=== PATIENT | male | born 1965 ===

== ENCOUNTER 2017-03-27 09:14 | Inpatient (IN) | payer OTHER ==
[2017-03-27] MEDS ORDERED: Sodium Chloride 0.9% 1,000 ML IV ONE (09:47)
--- NOTE | 2017-03-27 10:00 | C.PDOC ---
History Of Present Illness 51 y/o male presents to the ED for evaluation of diffuse abdominal pain with associated nausea and intermittent vomiting x3 days. Pt also reports some discomfort on urination with pinkish color to urine since this am. Pt denies fever, chills, recent illness or abx use, neck pain, drooling, chest pain, SOB, dyspnea, palpitation, hematemesis, diarrhea or melena, denies any other complaints. No previous history of GI or kidney disease.Ambulate to Ed for evaluation, appears in mild pain. Time Seen by Provider: 03/27/17 09:30 Chief Complaint (Nursing): Abdominal Pain History Per: Patient History/Exam Limitations: no limitations Onset/Duration Of Symptoms: Days Current Symptoms Are (Timing): Still Present Severity: Moderate Location Of Pain/Discomfort: Diffuse Radiation Of Pain To:: None Quality Of Discomfort: "Pain" Associated Symptoms: Nausea, Vomiting, Urinary Symptoms. denies: Fever, Chills , Diarrhea, Back Pain, Chest Pain Exacerbating Factors: None Alleviating Factors: None Recent travel outside of the [place]: No Past Medical History Reviewed: Historical Data, Nursing Documentation, Vital Signs Vital Signs: Last Vital Signs Temp 98.6 F 03/27/17 14:19 Pulse 98 H 03/27/17 14:19 Resp 20 03/27/17 14:19 BP 130/83 03/27/17 14:19 Pulse Ox 96 03/27/17 14:19 - Medical History PMH: HTN, Hypercholesterolemia Family History: States: Unknown Family Hx - Social History Hx Alcohol Use: Yes Hx Substance Use: Yes - Immunization History Hx Tetanus Toxoid Vaccination: No Hx Influenza Vaccination: No Hx Pneumococcal Vaccination: No Review Of Systems Except As Marked, All Systems Reviewed And Found Negative. Constitutional: Negative for: Fever, Chills Cardiovascular: Negative for: Chest Pain Respiratory: Negative for: Shortness of Breath Gastrointestinal: Positive for: Nausea, Vomiting, Abdominal Pain. Negative for : Diarrhea Genitourinary: Positive for: Dysuria, Other (pinkish colored urine) Musculoskeletal: Negative for: Back Pain Physical Exam - Physical Exam Appears: Well, Non-toxic, No Acute Distress Skin: Warm, Dry, No Rash Nose: No Flaring, No Discharge Oral Mucosa: Moist, No Drooling Throat: No Erythema, No Exudate, No Drooling Neck: Supple, Other ((-) carotid btuits) Chest: Symmetrical Cardiovascular: Rhythm Regular, No Friction Rub, No Murmur, No JVD Respiratory: No Decreased Breath Sounds, No Accessory Muscle Use, No Rales, No Rhonchi, No Wheezing Gastrointestinal/Abdominal: Soft, Tenderness (mild diffuse lower ), No Organomegaly, No Distention, No Guarding, No Rebound Back: No CVA Tenderness Extremity: No Pedal Edema, No Deformity Extremity: Bilateral: Atraumatic Neurological/Psych: Oriented x3, Normal Speech, Normal Cognition ED Course And Treatment - Laboratory Results Result Diagrams: 03/27/17 10:16 03/27/17 10:16 Lab Interpretation: Abnormal O2 Sat by Pulse Oximetry: 98 (room air) Pulse Ox Interpretation: Normal - CT Scan/US CT abd/pelvis Other Rad Studies (CT/US): Radiology Report Reviewed CT/US Interpretation: Accession No. : [id number]. Patient Name / ID : INDIO BALLARD / [id number]. Exam Date : 03/27/2017 11:30:23 ( Approved ). Study Comment : Sex / Age : M / 51Y. Creator : Stacy Howell MD. Dictator : Gyroscopic Instrument Mechanic : Car Distributor : Stacy Howell MD. Approver2 : Report Date : 03/27/2017 12:54:45. My Comment : . PROCEDURE: CT Abdomen and Pelvis with contrast. HISTORY: LLQ pain. COMPARISON: None available. TECHNIQUE: Contrast dose: 100 mL Visipaque. Radiation dose: Total exam DLP = 650.40 mGy-cm. This CT exam was performed using one or more of the following dose reduction techniques: Automated exposure control, adjustment of the mA and/ or kV according to patient size, and/or use of iterative reconstruction technique. FINDINGS: LOWER THORAX: No visible consolidation, pleural effusion , or pneumothorax. Small to moderate hiatal hernia. LIVER: Hypoattenuation of the liver compatible with hepatic steatosis. Hepatomegaly. GALLBLADDER AND BILE DUCTS: Unremarkable. PANCREAS: Unremarkable. SPLEEN: Unremarkable. ADRENALS: 2.5 x 2.2 cm heterogeneous left adrenal gland mass. KIDNEYS AND URETERS: The kidneys enhance symmetrically. No hydronephrosis or obstructing calculus identified. VASCULATURE: No aortic aneurysm. BOWEL: Stomach is nondistended. Lack of oral contrast limits evaluation for bowel pathology. Bowel loops appear within normal limits of caliber without evidence of obstruction. Marked wall thickening and associated inflammatory changes involving the rectosigmoid colon compatible with acute diverticulitis. Evidence of associated microperforation. Adjacent small bowel loops appear thick walled, presumably resulting from the adjacent inflammatory changes. APPENDIX: The appendix appears within normal limits of caliber. No secondary signs of acute appendicitis. PERITONEUM: No significant free fluid. No definite free air. LYMPH NODES: No bulky adenopathy identified. BLADDER: Unremarkable. REPRODUCTIVE: Unremarkable. BONES: Mild degenerative changes. OTHER FINDINGS : None. IMPRESSION: Marked wall thickening and associated inflammatory changes involving the rectosigmoid colon compatible with acute diverticulitis. Small foci of adjacent air consistent with microperforation. Adjacent small bowel loops appear thick walled, presumably resulting from the adjacent inflammatory changes. 2.5 x 2.2 cm indeterminate heterogeneous left adrenal gland mass. Adrenal protocol MRI may be considered for further characterization if indicated. Hepatomegaly. Hepatic steatosis. Small to moderate hiatal hernia. Progress Note: Plan: CT abdomen/pelvis, labs, UA, IV fluids, pepcid, toradol, zofran. On re-evaluation, pt remained unchanged. Abd: benign, (-) guarding, (- ) rebound. Diagnostics review , leukocytosis w;left shift, CMP- no acute abnormalities. Imaging review and c/w acute diverticulitis with microperforation. results review and discussed with pt, admission offered and pt agrees with plan. Case discussed with Hospitalist and admission arranged. Surgery notified for consult. Abx initiated. Disposition - Disposition Disposition: HOSPITALIZED Disposition Time: 13:18 Condition: STABLE - Clinical Impression Clinical Impression: Diverticulitis, Acute diverticulitis, Perforated bowel - PA / IP TECHNOLOGY TRANSACTIONS ATTORNEY / Resident Statement MD/DO has reviewed & agrees with the documentation as recorded. - Scribe Statement The provider has reviewed the documentation as recorded by the Ciara Clark All medical record entries made by the Ciara were at my direction and personally dictated by me. I have reviewed the chart and agree that the record accurately reflects my personal performance of the history, physical exam, medical decision making, and the department course for this patient. I have also personally directed, reviewed, and agree with the discharge instructions and disposition.
[2017-03-27] MEDS ORDERED: Sodium Chloride 0.9% 1,000 ML ONE ×2 (10:05→16:25)
[2017-03-27 10:35] LABS: BASO # 0.1 K/uL (0.0-0.2); BASO % 0.4 % (0.0-2.0); EOS % 0.2 % (0.0-4.0); HEMOGLOBIN 13.1 g/dL (12.0-18.0); LYMPH # 1.2 K/uL (1.0-4.3); LYMPH % 6.3 % (20.0-40.0); MEAN CORPUSCULAR HEMOGLOBIN 30.3 pg (27.0-31.0); MEAN CORPUSCULAR HGB CONC 33.3 g/dL (33.0-37.0); MEAN PLATELET VOLUME 7.5 fL (7.2-11.7); MONO # 1.9 K/uL (0.0-0.8); MONO % 9.7 % (0.0-10.0); NEUT # 16.6 K/uL (1.8-7.0); NEUT % 83.4 % (50.0-75.0); PLATELET COUNT 227 K/uL (130-400); RBC 4.32 Mil/uL (4.40-5.90); RED CELL DISTRIBUTION WIDTH 13.1 % (11.5-14.5); WHITE BLOOD COUNT 19.9 K/uL (4.8-10.8)
[2017-03-27 10:50] LABS: GRANULAR CAST 5 /lpf (0-1); URINE BILIRUBIN NEGATIVE (NEGATIVE); URINE BLOOD 1+ (NEGATIVE); URINE CLARITY Hazy (Clear); URINE COLOR Amber (YELLOW); URINE GLUCOSE (UA) NORMAL (Normal); URINE LEUKOCYTE ESTERASE NEG Leu/uL (Negative); URINE NITRATE NEGATIVE (NEGATIVE); URINE PROTEIN 1+ mg/dL (NEGATIVE); URINE UROBILINOGEN NORMAL mg/dL (0.2-1.0)
[2017-03-27 10:55] LABS: ALB/GLOB RATIO 1.2 (1.0-2.1); AST/SGOT 20 U/L (17-59); BLOOD UREA NITROGEN 9 mg/dL (9-20); GFR AFRICAN-AMERICAN > 60; GFR NON-AFRICAN AMERICAN > 60
[2017-03-27 10:56] LABS: ALT/SGPT 29 U/L (21-72); CALCIUM 8.9 mg/dl (8.6-10.4); LIPASE 28 U/L (23-300)
[2017-03-27 10:58] LABS: LYMPHOCYTE 3 % (20-40); MONOCYTE 3 % (0-10); NEUTROPHIL 94 % (50-75); PLATELET ESTIMATE NORMAL (NORMAL); TOTAL CELLS COUNTED 100
[2017-03-27] MEDS ORDERED: Iodixanol 320 MG/ML 100 ML BOTTLE IV ONE (11:13)
--- NOTE | 2017-03-27 12:56 | CT ---
PROCEDURE: CT Abdomen and Pelvis with contrast HISTORY: LLQ pain COMPARISON: None available TECHNIQUE: Contrast dose: 100 mL Visipaque Radiation dose: Total exam DLP = 650.40 mGy-cm. This CT exam was performed using one or more of the following dose reduction techniques: Automated exposure control, adjustment of the mA and/or kV according to patient size, and/or use of iterative reconstruction technique. FINDINGS: LOWER THORAX: No visible consolidation, pleural effusion, or pneumothorax. Small to moderate hiatal hernia. LIVER: Hypoattenuation of the liver compatible with hepatic steatosis. Hepatomegaly. GALLBLADDER AND BILE DUCTS: Unremarkable. PANCREAS: Unremarkable. SPLEEN: Unremarkable. ADRENALS: 2.5 x 2.2 cm heterogeneous left adrenal gland mass. KIDNEYS AND URETERS: The kidneys enhance symmetrically. No hydronephrosis or obstructing calculus identified. VASCULATURE: No aortic aneurysm. BOWEL: Stomach is nondistended. Lack of oral contrast limits evaluation for bowel pathology. Bowel loops appear within normal limits of caliber without evidence of obstruction. Marked wall thickening and associated inflammatory changes involving the rectosigmoid colon compatible with acute diverticulitis. Evidence of associated microperforation. Adjacent small bowel loops appear thick walled, presumably resulting from the adjacent inflammatory changes. APPENDIX: The appendix appears within normal limits of caliber. No secondary signs of acute appendicitis. PERITONEUM: No significant free fluid. No definite free air. LYMPH NODES: No bulky adenopathy identified. BLADDER: Unremarkable. REPRODUCTIVE: Unremarkable. BONES: Mild degenerative changes. OTHER FINDINGS: None. IMPRESSION: Marked wall thickening and associated inflammatory changes involving the rectosigmoid colon compatible with acute diverticulitis. Small foci of adjacent air consistent with microperforation. Adjacent small bowel loops appear thick walled, presumably resulting from the adjacent inflammatory changes. 2.5 x 2.2 cm indeterminate heterogeneous left adrenal gland mass. Adrenal protocol MRI may be considered for further characterization if indicated. Hepatomegaly. Hepatic steatosis. Small to moderate hiatal hernia.
[2017-03-27] MEDS ORDERED: Ciprofloxacin 400mg/200ml D5W 400 MG/200 ML BAG IVPB STA (13:18)
[2017-03-27] MEDS ORDERED: metroNIDAZOLE IV 500 mg/100 ml 500 MG/100 ML BAG IVPB STA (13:18)
--- NOTE | 2017-03-27 13:46 | RAD ---
HISTORY: Cough COMPARISON: No prior. TECHNIQUE: Chest PA and lateral FINDINGS: LUNGS: No active pulmonary disease. PLEURA: No significant pleural effusion identified. No pneumothorax apparent. CARDIOVASCULAR: Normal. OSSEOUS STRUCTURES: No significant abnormalities. VISUALIZED UPPER ABDOMEN: Normal. OTHER FINDINGS: None. IMPRESSION: No active disease.
[2017-03-27] MEDS ORDERED: metroNIDAZOLE IV 500 mg/100 ml 500 MG/100 ML BAG ONE (13:51)
[2017-03-27 14:17] LABS: PROTHROMBIN TIME 11.8 SECONDS (9.7-12.2)
--- NOTE | 2017-03-27 14:28 | CP.PCM.CON ---
History of Present Illness - History of Present Illness History of Present Illness: CC :Diffuse abdominal pain HPI: Patient is a 51 year old male with past medical history of HTN, who presents to the ED with diffuse abdominal pain that started two days ago while playing basketball with his kid. Patient describes his abdominal pain as cramping that is localized more to the lower abdominal region without radiation that has progressively worsen since its onset. Patient rates his pain 8/10 that is worsen with defecation and urination. Patient reports that he has been taking Tylenol since the onset of the pain, which provided no relief. Patient admits to nausea, two episodes of vomit yesterday that was yellow/white foamy content, chills, night sweats, dizziness, hot flushes but denies fever, diarrhea , chest pain, palpitations and SOB. PMD: None PMHx: Hypertension ( Patient does not take hypertensive medication) PSHx: Bilateral rotator cuff repair, Repair of L elbow rupture and cardiac catherization w/o stent placement FHx: Mother and Father: Hypertension Medications: OTC Tylenol Allergies: [place] ( Angioedema of the mouth) Social Hx: Lives with family. Admits to 1 pack cigarettes every 2 days, 4 cans of beer/day 3-4 times per week and smokes Marijuana Review of Systems - Constitutional Constitutional: Chills, Headache, Night Sweats, Weakness. absent: Fever - EENT Eyes: absent: Blurred Vision, Change in Vision Ears: Dizziness - Cardiovascular Cardiovascular: Lightheadedness. absent: Chest Pain, Chest Pain at Rest, Diaphoresis, Dyspnea, Palpitations, Pedal Edema - Respiratory Respiratory: absent: Dyspnea, Dyspnea on Exertion - Gastrointestinal Gastrointestinal: Abdominal Pain, Cramping, Nausea, Vomiting. absent: Constipation, Diarrhea - Genitourinary Genitourinary: absent: Difficulty Urinating, Pyuria, Urinary Frequency, Urinary Hesitance - Neurological Neurological: Dizziness, Headaches, Weakness - Endocrine Endocrine: Fatigue. absent: Excessive Sweating, Palpitations Past Patient History - Infectious Disease Hx of Infectious Diseases: None - Past Social History Smoking Status: Heavy Smoker > 10 Cigarettes Daily - CARDIAC Hx Hypercholesterolemia: Yes Hx Hypertension: Yes - MUSCULOSKELETAL/RHEUMATOLOGICAL Other/Comment: chronic mat shoulder crystal. Rt knee pain - PSYCHIATRIC Hx Substance Use: Yes - SURGICAL HISTORY Hx Surgeries: Yes Hx Orthopedic Surgery: Yes (mat shoulder) - ANESTHESIA Hx Anesthesia: Yes Hx Anesthesia Reactions: No Hx Malignant Hyperthermia: No Meds Allergies/Adverse Reactions: Allergies Allergy/AdvReac Type Severity Reaction Status Date / Time hazelnut Allergy SWELLING Verified 03/27/17 09:19 - Medications Medications: Current Medications Ciprofloxacin (Cipro 400mg/200ml Dsw) 400 mg in 200 mls @ 133 mls/hr IVPB STAT STA Stop: 03/27/17 14:48 Physical Exam - Constitutional Appears: No Acute Distress - Head Exam Head Exam: ATRAUMATIC, NORMAL INSPECTION - Eye Exam Eye Exam: EOMI, Normal appearance - ENT Exam ENT Exam: Mucous Membranes Moist, Normal Exam - Respiratory Exam Respiratory Exam: Wheezes, NORMAL BREATHING PATTERN - Cardiovascular Exam Cardiovascular Exam: REGULAR RHYTHM, +S1, +S2 - GI/Abdominal Exam GI & Abdominal Exam: Normal Bowel Sounds, Rebound, Tenderness - Extremities Exam Extremities exam: Positive for: normal capillary refill, normal inspection. Negative for: calf tenderness, pedal edema, tenderness - Neurological Exam Neurological exam: Alert, Oriented x3 - Psychiatric Exam Psychiatric exam: Normal Affect, Normal Mood - Skin Skin Exam: Dry, Normal Color, Warm Results - Vital Signs Recent Vital Signs: Last Vital Signs Temp 98.6 F 03/27/17 14:19 Pulse 98 H 03/27/17 14:19 Resp 20 03/27/17 14:19 BP 130/83 03/27/17 14:19 Pulse Ox 96 03/27/17 14:19 - Labs Result Diagrams: 03/27/17 10:16 03/27/17 10:16 Assessment & Plan (1) Acute diverticulitis Assessment and Plan: No surgical intervention at this time Bowel rest IV Fluids Continue antibiotics regimen Pain control as needed Will re-evlauate if necessary Clear Liquid diet Imaging: F/U abdominal series Status: Acute
--- NOTE | 2017-03-27 14:33 | CP.PCM.HP ---
Addendum entered and electronically signed by Delta Tompkins DO 03/27/17 15:23: 7. Sepsis Addendum: WBC 19.5, HR 98-122. afebrile. Ordered Lactate. See plan to Diverticulitis with Microperforation Original Note: <Delta Tompkins - Last Filed: 03/27/17 14:49> History of Present Illness - History of Present Illness History of Present Illness: cc: stomach pain HPI: Patient is a 51 year old male with no PMHx presenting to the ED complaining of abdominal pain that started 3 days ago. He states he was playing basketball with his kid when he suddenly felt a 3-4/10 pain, describing it as a band tightening around his upper abdomen. As the day progressed, the pain worsened and started to radiate down to his lower abdomen. He says he has never had a pain like this before, and that the pain was continuous. He said he tried taking some pepto bismol with no relief. He reports that when he urinates, the pain starts to radiate upward, though he denies any dysuria. He denies any fevers or chills. He states he has had decreased appetite, and two episodes of vomiting yellow-white foamy material. Denies any changes in bowel habits. PMD: None PMHx: None PSHx: Elbow and rotator cuff surgery, Allergies: Hazelnut Social hx: Smokes 1 pack every 2 days/ 22 years. Drinks about 4x 24 oz beers every 3 days, denies any withdrawal symptoms upon discontinuation. Smokes marijuana about twice per month. Fam hx: noncontributory. Present on Admission - Present on Admission Any Indicators Present on Admission: No Review of Systems - Constitutional Constitutional: absent: Chills, Fatigue, Frequent Falls, Lethargy - EENT Eyes: absent: Blurred Vision, Change in Vision Nose/Mouth/Throat: absent: Nasal Discharge, Tongue Swelling, Facial Pain, Neck Mass - Cardiovascular Cardiovascular: absent: Chest Pain, Irregular Heart Rhythm, Leg Edema, Palpitations, Pedal Edema - Respiratory Respiratory: absent: As Per HPI, Cough, Dyspnea, Wheezing, Excessive Mucous Production - Gastrointestinal Gastrointestinal: Abdominal Pain, Nausea, Vomiting. absent: Constipation, Diarrhea, Early Satiety, Heartburn, Hematemesis - Genitourinary Genitourinary: absent: Difficulty Urinating, Dysuria - Musculoskeletal Musculoskeletal: absent: Back Pain, Myalgias, Numbness - Integumentary Integumentary: absent: Change in Hair, Skin Pain, Wounds - Neurological Neurological: absent: Abnormal Hearing, Abnormal Movements, Tingling, Tremor, Weakness - Psychiatric Psychiatric: absent: Anhedonia, Anxiety, Panic Attacks, Suicidal Ideation - Endocrine Endocrine: absent: Fatigue, Palpitations Past Patient History - Infectious Disease Hx of Infectious Diseases: None - Past Social History Smoking Status: Light Smoker < 10 Cigarettes Daily Chewing Tobacco Use: No Cigar Use: No Alcohol: Other (4x 24 oz beers 3x/ week) Drugs: Cannabis Home Situation {Lives}: Alone - CARDIAC Hx Hypercholesterolemia: Yes Hx Hypertension: Yes - MUSCULOSKELETAL/RHEUMATOLOGICAL Other/Comment: chronic mat shoulder crystal. Rt knee pain - PSYCHIATRIC Hx Substance Use: Yes - SURGICAL HISTORY Hx Surgeries: Yes Hx Orthopedic Surgery: Yes (mat shoulder) - ANESTHESIA Hx Anesthesia: Yes Hx Anesthesia Reactions: No Hx Malignant Hyperthermia: No Meds Allergies/Adverse Reactions: Allergies Allergy/AdvReac Type Severity Reaction Status Date / Time hazelnut Allergy SWELLING Verified 03/27/17 09:19 Physical Exam - Constitutional Appears: Non-toxic, No Acute Distress - Head Exam Head Exam: ATRAUMATIC, NORMAL INSPECTION, NORMOCEPHALIC - Eye Exam Eye Exam: EOMI, Normal appearance Pupil Exam: NORMAL ACCOMODATION, PERRL - ENT Exam ENT Exam: Mucous Membranes Moist - Respiratory Exam Respiratory Exam: Wheezes, NORMAL BREATHING PATTERN. absent: Prolonged Expiratory Phase, Rales, Rhonchi - Cardiovascular Exam Cardiovascular Exam: REGULAR RHYTHM, +S1, +S2 - GI/Abdominal Exam GI & Abdominal Exam: Guarding, Normal Bowel Sounds, Soft, Tenderness (LUQ, LLQ, RLQ) - Extremities Exam Extremities exam: Positive for: normal capillary refill, pedal pulses present - Neurological Exam Neurological exam: Alert, Oriented x3 - Psychiatric Exam Psychiatric exam: Normal Affect, Normal Mood - Skin Skin Exam: Dry, Intact, Normal Color, Warm Results - Vital Signs Recent Vital Signs: Last Vital Signs Temp 98.6 F 03/27/17 14:19 Pulse 98 H 03/27/17 14:19 Resp 20 03/27/17 14:19 BP 130/83 03/27/17 14:19 Pulse Ox 96 03/27/17 14:19 - Labs Result Diagrams: 03/27/17 10:16 03/27/17 10:16 Labs: Laboratory Results - last 24 hr 03/27/17 13:55 PT 11.8 INR 1.0 APTT 30 Assessment & Plan - Assessment and Plan (Free Text) Assessment: 1. Diverticulitis with microperforation CT Abdomen Pelvis IV Contrast- 03/27/17- Marked wall thickening and associated inflammatory changes involving the rectosigmoid colon comptaible with acute diverticulitis. Small foci of adjacent air consistent with microperforation. 2.5x 2.2 cm heterogeneous left adrenal gland mass. Adrenal protocol MRI may be considered for further characterization if indicated. Hepatomegaly. Hepatic Steatosis. Small to moderate hiatal hernia. GI Consult- Dr. Lopes General Surgery Consult- Dr. Michael NPO IVF NS @ 125cc/hr Zosyn 3.375gm IVPB Q6h Flagyl 500mg IVPB Q8h Morphine 1mg IVP Q4h PRN for pain Zofran 4mg IVP Q6h PRN 2. Adrenal Mass 2.5x 2.2 cm heterogeneous left adrenal gland mass. Adrenal protocol MRI may be considered for further characterization if indicated. No indication for further workup in the hospital. Patient instructed to followup outpatient for additional workup. 3. Obesity F/u HgbA1C and Lipid Panel 4. Alcohol Abuse Ativan 1mg IVP Q3h PRN for withdrawal symptoms 5. Inspiratory Wheezing Duoneb Q6h PRN 6.Prophylactic Measures Heparin 5000U SC Q8h Protonix 40mg IVP Daily <Ruy Wiggins - Last Filed: 03/27/17 16:29> Results - Vital Signs Recent Vital Signs: Last Vital Signs Temp 98.6 F 03/27/17 14:19 Pulse 98 H 03/27/17 14:19 Resp 20 03/27/17 14:19 BP 130/83 03/27/17 14:19 Pulse Ox 98 03/27/17 15:56 - Labs Result Diagrams: 03/27/17 10:16 03/27/17 10:16 Labs: Laboratory Results - last 24 hr 03/27/17 13:55 PT 11.8 INR 1.0 APTT 30 Attending/Attestation - Attestation I have personally seen and examined this patient.: Yes I have fully participated in the care of the patient.: Yes I have reviewed all pertinent clinical information: Yes Notes (Text): 03/27/17 16:29 Patient was seen and examined at bedside with the resident. GI and surgical evaluation requested. We will follow up recommendations I discussed the plan of care with the resident and agree with the history and physical and assessment/plan documented by the resident.
[2017-03-27] MEDS ORDERED: Albuterol-Ipratrop 3 mg / 0.5 (3 ml) UD INH PRN (14:55)
[2017-03-27] MEDS ORDERED: Ciprofloxacin 400mg/200ml D5W 400 MG/200 ML BAG IVPB ONE (16:25)
[2017-03-27] MEDS: Sodium Chloride 0.9% 1,000 ML IV SCH ×3 (16:31→23:07)
[2017-03-27 16:39] LABS: VENOUS BLOOD GAS BASE EXCESS -3.3 mmol/L (0.0-2.0); VENOUS BLOOD GAS PCO2 40 mmHg (40-60); VENOUS BLOOD GAS PO2 42 mm/Hg (30-55); VENOUS BLOOD PH 7.35 (7.32-7.43)
[2017-03-27] MEDS ORDERED: Morphine 4 MG/ML VIAL ONE (16:56)
[2017-03-27] MEDS: Morphine 4 MG/ML VIAL IVP PRN (17:00)
[2017-03-27] MEDS ORDERED: Morphine 4 MG/ML VIAL IV ONE (20:25)
[2017-03-27] MEDS: Piperacill/Tazo 3.375gm in Dex 3.375 GM/50 ML BAG IVPB SCH (21:51)
[2017-03-27] MEDS: metroNIDAZOLE IV 500 mg/100 ml 500 MG/100 ML BAG IVPB SCH (21:52)
[2017-03-28] MEDS: Morphine 4 MG/ML VIAL IVP PRN ×3 (00:33→20:06)
[2017-03-28] MEDS: Piperacill/Tazo 3.375gm in Dex 3.375 GM/50 ML BAG IVPB SCH ×4 (03:57→22:25)
[2017-03-28] MEDS: metroNIDAZOLE IV 500 mg/100 ml 500 MG/100 ML BAG IVPB SCH ×3 (06:01→22:21)
[2017-03-28] MEDS: Sodium Chloride 0.9% 1,000 ML IV SCH ×3 (07:00→22:38)
[2017-03-28 07:24] LABS: BASO % 0.3 % (0.0-2.0); EOS # 0.2 K/uL (0.0-0.7); EOS % 1.1 % (0.0-4.0); HEMOGLOBIN 11.4 g/dL (12.0-18.0); LYMPH # 1.1 K/uL (1.0-4.3); LYMPH % 7.6 % (20.0-40.0); MEAN CELL VOLUME 91.1 fL (80.0-94.0); MEAN CORPUSCULAR HEMOGLOBIN 30.8 pg (27.0-31.0); MEAN CORPUSCULAR HGB CONC 33.9 g/dL (33.0-37.0); MEAN PLATELET VOLUME 7.6 fL (7.2-11.7); MONO # 1.5 K/uL (0.0-0.8); NEUT # 12.2 K/uL (1.8-7.0); PLATELET COUNT 205 K/uL (130-400)
[2017-03-28 08:06] LABS: ALBUMIN 3.2 g/dL (3.5-5.0)
[2017-03-28 08:09] LABS: GFR AFRICAN-AMERICAN > 60; GFR NON-AFRICAN AMERICAN > 60
[2017-03-28 08:10] LABS: ALT/SGPT 24 U/L (21-72); AST/SGOT 18 U/L (17-59); BLOOD UREA NITROGEN 5 mg/dL (9-20); CALCIUM 8.1 mg/dl (8.6-10.4); HDL CHOLESTEROL 43 mg/dL (30-70)
[2017-03-28 08:20] LABS: ANISOCYTOSIS SLIGHT; LYMPHOCYTE 8 % (20-40); MONOCYTE 10 % (0-10); NEUTROPHIL 82 % (50-75); PLATELET ESTIMATE NORMAL (NORMAL); POIKILOCYTOSIS SLIGHT; TOTAL CELLS COUNTED 100
[2017-03-28 08:21] LABS: HYPOCHROMIC SLIGHT
[2017-03-28 08:22] LABS: LDL CHOLESTEROL 64 mg/dL (0-129)
--- NOTE | 2017-03-28 09:06 | CP.PCM.PN ---
Subjective - Date & Time of Evaluation Date of Evaluation: 03/28/17 Time of Evaluation: 07:30 - Subjective Subjective: General Surgery note Patient was seen and examined at bedside. Patient reports that his symptoms are improving. Patient had no acute issues overnight. Patient denies nausea, vomiting, fever, diarrhea but admits to chills, headache and moderate diffuse lower abdominal pain. Patient is tolerating liquid diet and able to ambulate. Objective - Vital Signs/Intake and Output Vital Signs (last 24 hours): Temp Pulse Resp BP Pulse Ox 98.7 F 97 H 20 123/71 96 03/27/17 17:30 03/27/17 23:55 03/27/17 23:55 03/27/17 23:55 03/27/17 23:55 Intake and Output: 03/28/17 03/28/17 06:59 18:59 Intake Total 1440 Output Total 1350 Balance 90 - Medications Medications: Current Medications Albuterol/Ipratropium (Duoneb 3 Mg/0.5 Mg (3 Ml) Ud) 3 ml INH RQ6 PRN PRN Reason: Shortness of Breath Heparin Sodium (Porcine) (Heparin) 5,000 units SC Q8 MARTIN Last Admin: 03/28/17 06:01 Dose: 5,000 units Metronidazole (Flagyl) 500 mg in 100 mls @ 100 mls/hr IVPB Q8 MARTIN Last Admin: 03/28/17 06:01 Dose: 100 mls/hr Piperacillin Sod/Tazobactam Sod (Zosyn 3.375 Gm Iv Premix) 3.375 gm in 50 mls @ 100 mls/hr IVPB Q6H MARTIN Last Admin: 03/28/17 03:57 Dose: 100 mls/hr Sodium Chloride (Sodium Chloride 0.9%) 1,000 mls @ 125 mls/hr IV .Q8H MARTIN Last Admin: 03/27/17 23:07 Dose: Not Given Lorazepam (Ativan) 1 mg IVP Q3H PRN PRN Reason: Withdrawal symptoms Morphine Sulfate (Morphine) 1 mg IVP Q4H PRN PRN Reason: Pain, severe (8-10) Last Admin: 03/28/17 00:33 Dose: 1 mg Ondansetron HCl (Zofran Inj) 4 mg IVP Q6H PRN PRN Reason: Nausea/Vomiting Pantoprazole Sodium (Protonix Inj) 40 mg IVP DAILY MARTIN - Labs Labs: 03/28/17 07:08 03/28/17 07:08 PT 11.8 SECONDS (9.7-12.2) 03/27/17 13:55 INR 1.0 03/27/17 13:55 APTT 30 SECONDS (21-34) 03/27/17 13:55 - Constitutional Appears: Well, No Acute Distress - Head Exam Head Exam: ATRAUMATIC - Eye Exam Eye Exam: EOMI, Normal appearance - ENT Exam ENT Exam: Mucous Membranes Moist, Normal Exam - Respiratory Exam Respiratory Exam: Wheezes, NORMAL BREATHING PATTERN - Cardiovascular Exam Cardiovascular Exam: REGULAR RHYTHM, +S1, +S2 - GI/Abdominal Exam GI & Abdominal Exam: Soft, Tenderness, Normal Bowel Sounds Additional comments: Tenderness located to the lower abdomen region - Extremities Exam Extremities Exam: Normal Capillary Refill, Normal Inspection - Neurological Exam Neurological Exam: Alert, Awake, Oriented x3 - Psychiatric Exam Psychiatric exam: Normal Affect, Normal Mood - Skin Skin Exam: Dry, Normal Color, Warm Assessment and Plan (1) Acute diverticulitis Assessment & Plan: No surgical intervention at this time Bowel rest Continue IV Fluids Continue antibiotics regimen as per primary team Pain control as needed Continue clear Liquid diet Continue to monitor with serial abdominal exam Status: Acute
--- NOTE | 2017-03-28 09:46 | CP.PCM.CON ---
<Maddy Cox - Last Filed: 03/28/17 09:53> History of Present Illness - History of Present Illness History of Present Illness: PGY4 GI Initial Consult Addison Wayne is a 51M w/ no sig med hx who presents to the ED with complaints of abd pain of the LLQ. Onset has been for 3 days. Pt states that he first noticed the pain while playing basketball. He initially ignored it as it was intermittent. Pt states that it was initially 2-3 out of 10 with sharp characteristic. He state he then proceeded to consume Etoh the next day and it alleviated his pain. He states later that night, he started to experience more sig pain in the same location with associated nausea and vomiting. Pt denies any diarrhea. He states he came to the Ed for further eval. In the ER he was found to have sig inflam and thickening around the sigmoid on CT, congruent to diverticulitis on CT abd. Pt was admitted with abx and supportive care. Overnight, pt reports slight improvement but his pain is still present. He denies any similar episodes in the past. Pt denies any recent uncooked meat, abx , or sick contacts. Denies any hematemesis, BRBPR or melena. He denies any sig weight loss in the past year. PMD: None PMHx: None PSHx: Elbow and rotator cuff surgery, Allergies: Hazelnut Social hx: Smokes 1 pack every 2 days/ 22 years. Drinks about 4x 24 oz beers every 3 days, denies any withdrawal symptoms upon discontinuation. Smokes marijuana about twice per month. Fam hx: noncontributory. Endoscopy hx: none ROS: 12-point ROS conducted, other than what is states above, its otherwise neg Past Patient History - Infectious Disease Hx of Infectious Diseases: None - Past Social History Smoking Status: Light Smoker < 10 Cigarettes Daily - CARDIAC Hx Hypercholesterolemia: Yes Hx Hypertension: Yes - MUSCULOSKELETAL/RHEUMATOLOGICAL Hx Falls: Yes (Patient fell 2008 and 2013) - PSYCHIATRIC Hx Substance Use: No (Patient denies any substance use) - SURGICAL HISTORY Hx Surgeries: Yes Hx Orthopedic Surgery: Yes (mat shoulder) - ANESTHESIA Hx Anesthesia: Yes Hx Anesthesia Reactions: No Hx Malignant Hyperthermia: No Meds Allergies/Adverse Reactions: Allergies Allergy/AdvReac Type Severity Reaction Status Date / Time hazelnut Allergy SWELLING Verified 03/27/17 09:19 - Medications Medications: Current Medications Albuterol/Ipratropium (Duoneb 3 Mg/0.5 Mg (3 Ml) Ud) 3 ml INH RQ6 PRN PRN Reason: Shortness of Breath Heparin Sodium (Porcine) (Heparin) 5,000 units SC Q8 [facility] Last Admin: 03/28/17 06:01 Dose: 5,000 units Metronidazole (Flagyl) 500 mg in 100 mls @ 100 mls/hr IVPB Q8 [facility] Last Admin: 03/28/17 06:01 Dose: 100 mls/hr Piperacillin Sod/Tazobactam Sod (Zosyn 3.375 Gm Iv Premix) 3.375 gm in 50 mls @ 100 mls/hr IVPB Q6H [facility] Last Admin: 03/28/17 03:57 Dose: 100 mls/hr Sodium Chloride (Sodium Chloride 0.9%) 1,000 mls @ 125 mls/hr IV .Q8H [facility] Last Admin: 03/27/17 23:07 Dose: Not Given Lorazepam (Ativan) 1 mg IVP Q3H PRN PRN Reason: Withdrawal symptoms Morphine Sulfate (Morphine) 1 mg IVP Q4H PRN PRN Reason: Pain, severe (8-10) Last Admin: 03/28/17 00:33 Dose: 1 mg Ondansetron HCl (Zofran Inj) 4 mg IVP Q6H PRN PRN Reason: Nausea/Vomiting Pantoprazole Sodium (Protonix Inj) 40 mg IVP DAILY [facility] Last Admin: 03/28/17 09:05 Dose: 40 mg Physical Exam - Constitutional Appears: Well, No Acute Distress - Head Exam Head Exam: ATRAUMATIC, NORMOCEPHALIC - Eye Exam Eye Exam: Normal appearance - ENT Exam ENT Exam: Mucous Membranes Moist, Normal Exam - Neck Exam Neck exam: Positive for: Normal Inspection - Respiratory Exam Respiratory Exam: Clear to Auscultation Bilateral, NORMAL BREATHING PATTERN. absent: Rales, Rhonchi, Wheezes, Respiratory Distress - Cardiovascular Exam Cardiovascular Exam: REGULAR RHYTHM, +S1, +S2 - GI/Abdominal Exam GI & Abdominal Exam: Normal Bowel Sounds, Soft, Tenderness. absent: Diminished Bowel Sounds, Distended, Firm, Guarding, Organomegaly, Rebound, Rigid Additional comments: LLQ - Extremities Exam Extremities exam: Positive for: normal inspection. Negative for: joint swelling , pedal edema - Neurological Exam Neurological exam: Alert, Normal Gait, Oriented x3 - Psychiatric Exam Psychiatric exam: Normal Affect, Normal Mood - Skin Skin Exam: Dry, Intact, Normal Color, Warm Results - Vital Signs Recent Vital Signs: Last Vital Signs Temp 99.8 F H 03/28/17 09:18 Pulse 85 03/28/17 09:18 Resp 20 03/28/17 09:18 BP 120/71 03/28/17 09:18 Pulse Ox 94 L 03/28/17 09:18 - Labs Result Diagrams: 03/28/17 07:08 03/28/17 07:08 Labs: Laboratory Results - last 24 hr 03/27/17 03/27/17 03/28/17 13:55 16:35 07:08 WBC 15.0 H RBC 3.70 L Hgb 11.4 L Hct 33.7 L MCV 91.1 MCH 30.8 MCHC 33.9 RDW 13.0 Plt Count 205 MPV 7.6 Neut % (Auto) 81.0 H Lymph % (Auto) 7.6 L Leon % (Auto) 10.0 Eos % (Auto) 1.1 Baso % (Auto) 0.3 Neut # 12.2 H Lymph # 1.1 Leon # 1.5 H Eos # 0.2 Baso # 0.0 Neutrophils % (Manual) 82 H Lymphocytes % (Manual) 8 L Monocytes % (Manual) 10 Platelet Estimate Normal Hypochromasia (manual) Slight Poikilocytosis (manual Slight Anisocytosis (manual) Slight PT 11.8 INR 1.0 APTT 30 pO2 42 VBG pH 7.35 VBG pCO2 40 VBG HCO3 21.7 VBG Total CO2 23.3 VBG O2 Sat (Calc) 67.9 H VBG Base Excess -3.3 L VBG Potassium 3.0 L Sodium 137.0 Chloride 109.0 H Glucose 87 Lactate 0.7 FiO2 21.0 Potassium Carbon Dioxide Anion Gap BUN Creatinine Est GFR ( Amer) Est GFR (Non-Af Amer) Random Glucose Hemoglobin A1c Calcium Total Bilirubin AST ALT Alkaline Phosphatase Total Protein Albumin Globulin Albumin/Globulin Ratio Triglycerides Cholesterol LDL Cholesterol Direct HDL Cholesterol Venous Blood Potassium 3.0 L 03/28/17 03/28/17 07:08 07:08 WBC RBC Hgb Hct MCV MCH MCHC RDW Plt Count MPV Neut % (Auto) Lymph % (Auto) Leon % (Auto) Eos % (Auto) Baso % (Auto) Neut # Lymph # Leon # Eos # Baso # Neutrophils % (Manual) Lymphocytes % (Manual) Monocytes % (Manual) Platelet Estimate Hypochromasia (manual) Poikilocytosis (manual Anisocytosis (manual) PT INR APTT pO2 VBG pH VBG pCO2 VBG HCO3 VBG Total CO2 VBG O2 Sat (Calc) VBG Base Excess VBG Potassium Sodium 136 Chloride 100 Glucose Lactate FiO2 Potassium 3.6 Carbon Dioxide 25 Anion Gap 14 BUN 5 L Creatinine 0.8 Est GFR ( Amer) > 60 Est GFR (Non-Af Amer) > 60 Random Glucose 88 Hemoglobin A1c 5.7 Calcium 8.1 L Total Bilirubin 0.8 AST 18 ALT 24 Alkaline Phosphatase 57 Total Protein 6.2 L Albumin 3.2 L Globulin 3.1 Albumin/Globulin Ratio 1.0 Triglycerides 204 H Cholesterol 152 LDL Cholesterol Direct 64 HDL Cholesterol 43 Venous Blood Potassium Assessment & Plan - Assessment and Plan (Free Text) Assessment: Addison Leung is a 51M w/ no sig med hx who presents with abd pain. Pt likely had diverticulitis based on presentation and CT finding. Diverticulitis -continue abx, can deescalate to cipro and flagyl -advance diet as tolerated to low reside, advise high fiber diet as outpt once acute symptoms resolve -surgery recommendations noted -pain management as per primary team -will need a colonoscopy 6-8 weeks after resolution, to rule out any other sig pathology including malig, ulcer, and IBD -will need to get [facility] care -can d/c PPI and start pepcid D/w Dr. Lopes <Charles Lopes Y - Last Filed: 03/28/17 10:36> Meds - Medications Medications: Current Medications Albuterol/Ipratropium (Duoneb 3 Mg/0.5 Mg (3 Ml) Ud) 3 ml INH RQ6 PRN PRN Reason: Shortness of Breath Famotidine (Pepcid) 20 mg PO DAILY [facility] Heparin Sodium (Porcine) (Heparin) 5,000 units SC Q8 [facility] Last Admin: 03/28/17 06:01 Dose: 5,000 units Metronidazole (Flagyl) 500 mg in 100 mls @ 100 mls/hr IVPB Q8 [facility] Last Admin: 03/28/17 06:01 Dose: 100 mls/hr Piperacillin Sod/Tazobactam Sod (Zosyn 3.375 Gm Iv Premix) 3.375 gm in 50 mls @ 100 mls/hr IVPB Q6H [facility] Last Admin: 03/28/17 03:57 Dose: 100 mls/hr Sodium Chloride (Sodium Chloride 0.9%) 1,000 mls @ 125 mls/hr IV .Q8H [facility] Last Admin: 03/27/17 23:07 Dose: Not Given Lorazepam (Ativan) 1 mg IVP Q3H PRN PRN Reason: Withdrawal symptoms Morphine Sulfate (Morphine) 1 mg IVP Q4H PRN PRN Reason: Pain, severe (8-10) Last Admin: 03/28/17 00:33 Dose: 1 mg Ondansetron HCl (Zofran Inj) 4 mg IVP Q6H PRN PRN Reason: Nausea/Vomiting Results - Vital Signs Recent Vital Signs: Last Vital Signs Temp 99.8 F H 03/28/17 09:18 Pulse 85 03/28/17 09:18 Resp 20 03/28/17 09:18 BP 120/71 03/28/17 09:18 Pulse Ox 94 L 03/28/17 09:18 - Labs Result Diagrams: 03/28/17 07:08 03/28/17 07:08 Labs: Laboratory Results - last 24 hr 03/27/17 03/27/17 03/28/17 13:55 16:35 07:08 WBC 15.0 H RBC 3.70 L Hgb 11.4 L Hct 33.7 L MCV 91.1 MCH 30.8 MCHC 33.9 RDW 13.0 Plt Count 205 MPV 7.6 Neut % (Auto) 81.0 H Lymph % (Auto) 7.6 L Leon % (Auto) 10.0 Eos % (Auto) 1.1 Baso % (Auto) 0.3 Neut # 12.2 H Lymph # 1.1 Leon # 1.5 H Eos # 0.2 Baso # 0.0 Neutrophils % (Manual) 82 H Lymphocytes % (Manual) 8 L Monocytes % (Manual) 10 Platelet Estimate Normal Hypochromasia (manual) Slight Poikilocytosis (manual Slight Anisocytosis (manual) Slight PT 11.8 INR 1.0 APTT 30 pO2 42 VBG pH 7.35 VBG pCO2 40 VBG HCO3 21.7 VBG Total CO2 23.3 VBG O2 Sat (Calc) 67.9 H VBG Base Excess -3.3 L VBG Potassium 3.0 L Sodium 137.0 Chloride 109.0 H Glucose 87 Lactate 0.7 FiO2 21.0 Potassium Carbon Dioxide Anion Gap BUN Creatinine Est GFR ( Amer) Est GFR (Non-Af Amer) Random Glucose Hemoglobin A1c Calcium Total Bilirubin AST ALT Alkaline Phosphatase Total Protein Albumin Globulin Albumin/Globulin Ratio Triglycerides Cholesterol LDL Cholesterol Direct HDL Cholesterol Venous Blood Potassium 3.0 L 03/28/17 03/28/17 07:08 07:08 WBC RBC Hgb Hct MCV MCH MCHC RDW Plt Count MPV Neut % (Auto) Lymph % (Auto) Leon % (Auto) Eos % (Auto) Baso % (Auto) Neut # Lymph # Leon # Eos # Baso # Neutrophils % (Manual) Lymphocytes % (Manual) Monocytes % (Manual) Platelet Estimate Hypochromasia (manual) Poikilocytosis (manual Anisocytosis (manual) PT INR APTT pO2 VBG pH VBG pCO2 VBG HCO3 VBG Total CO2 VBG O2 Sat (Calc) VBG Base Excess VBG Potassium Sodium 136 Chloride 100 Glucose Lactate FiO2 Potassium 3.6 Carbon Dioxide 25 Anion Gap 14 BUN 5 L Creatinine 0.8 Est GFR ( Amer) > 60 Est GFR (Non-Af Amer) > 60 Random Glucose 88 Hemoglobin A1c 5.7 Calcium 8.1 L Total Bilirubin 0.8 AST 18 ALT 24 Alkaline Phosphatase 57 Total Protein 6.2 L Albumin 3.2 L Globulin 3.1 Albumin/Globulin Ratio 1.0 Triglycerides 204 H Cholesterol 152 LDL Cholesterol Direct 64 HDL Cholesterol 43 Venous Blood Potassium Attending/Attestation - Attestation I have personally seen and examined this patient.: Yes I have fully participated in the care of the patient.: Yes I have reviewed all pertinent clinical information: Yes Notes (Text): 03/28/17 10:27 I have seen and examined patient with GI fellow. Agree with above documentation with the following additions. In brief, this is a 51 year old male without significant past medical history who presents to hospital with complaint of progressive abdominal pain for the past 3 days. He describes a LLQ sharp tenderness that is non-radiating and worse after meal consumption or movement. He denies associated fever/chills, weight loss, rectal bleeding, nausea, vomiting, or similar prior episodes. He is seen today ambulating in hallway, appears comfortable. Tolerating PO liquids without difficulty. No prior endoscopic evaluation. Abdominal pain, LLQ Acute sigmoid diverticulitis without associated aurelio-colonic abscess - CT imaging reviewed by me showing small foci of aurelio-colonic free air consistent with microperforation - Continue with liquid diet as tolerated - Continue with antibiotic therapy - Pain control - Surgical consultation requested by medical team, follow up recommendations - Patient will require elective outpatient colonoscopy within 2 months following resolution of acute diverticulitis episode - Will continue to monitor patient clinical course
--- NOTE | 2017-03-28 09:58 | CP.PCM.PN ---
<Amilcar Caraballo - Last Filed: 03/28/17 19:18> Subjective - Date & Time of Evaluation Date of Evaluation: 03/28/17 Time of Evaluation: 09:57 - Subjective Subjective: PGY [address] Wiggins Patient seen and examined this morning. No acute events overnight. Patient is laying on his left side with his knees curled up to his chest, complaining of abdominal pain upon walking into the room. He says laying in this position helps relieve some of his pain. He states he did not sleep well last night because of the pain. He states the pain is slightly improved for a while when he gets pain medication but it is not completely resolved. He states he does not to like to ask for pain medication because the pain is improving. Patient denies any bowel movements since yesterday morning when he was admitted. He is passing flatus. Patient denies any N/V, sob or cp. Objective - Vital Signs/Intake and Output Vital Signs (last 24 hours): Temp Pulse Resp BP Pulse Ox 99.8 F H 85 20 120/71 94 L 03/28/17 09:18 03/28/17 09:18 03/28/17 09:18 03/28/17 09:18 03/28/17 09:18 Intake and Output: 03/28/17 03/28/17 06:59 18:59 Intake Total 1440 Output Total 1350 Balance 90 - Medications Medications: Current Medications Albuterol/Ipratropium (Duoneb 3 Mg/0.5 Mg (3 Ml) Ud) 3 ml INH RQ6 PRN PRN Reason: Shortness of Breath Famotidine (Pepcid) 20 mg PO DAILY [facility] Heparin Sodium (Porcine) (Heparin) 5,000 units SC Q8 [facility] Last Admin: 03/28/17 06:01 Dose: 5,000 units Metronidazole (Flagyl) 500 mg in 100 mls @ 100 mls/hr IVPB Q8 [facility] Last Admin: 03/28/17 06:01 Dose: 100 mls/hr Piperacillin Sod/Tazobactam Sod (Zosyn 3.375 Gm Iv Premix) 3.375 gm in 50 mls @ 100 mls/hr IVPB Q6H [facility] Last Admin: 03/28/17 03:57 Dose: 100 mls/hr Sodium Chloride (Sodium Chloride 0.9%) 1,000 mls @ 125 mls/hr IV .Q8H [facility] Last Admin: 03/27/17 23:07 Dose: Not Given Lorazepam (Ativan) 1 mg IVP Q3H PRN PRN Reason: Withdrawal symptoms Morphine Sulfate (Morphine) 1 mg IVP Q4H PRN PRN Reason: Pain, severe (8-10) Last Admin: 03/28/17 00:33 Dose: 1 mg Ondansetron HCl (Zofran Inj) 4 mg IVP Q6H PRN PRN Reason: Nausea/Vomiting - Labs Labs: 03/28/17 07:08 03/28/17 07:08 PT 11.8 SECONDS (9.7-12.2) 03/27/17 13:55 INR 1.0 03/27/17 13:55 APTT 30 SECONDS (21-34) 03/27/17 13:55 - Constitutional Appears: No Acute Distress (Patient states that laying on his left side relieves a lot of his pain.) - ENT Exam ENT Exam: Mucous Membranes Moist - Respiratory Exam Respiratory Exam: Clear to Ausculation Bilateral, NORMAL BREATHING PATTERN. absent: Accessory Muscle Use, Respiratory Distress - Cardiovascular Exam Cardiovascular Exam: REGULAR RHYTHM, +S1, +S2 - GI/Abdominal Exam GI & Abdominal Exam: Guarding, Soft, Tenderness, Normal Bowel Sounds. absent: Distended, Firm, Rigid - Extremities Exam Extremities Exam: absent: Joint Swelling, Pedal Edema - Neurological Exam Neurological Exam: Alert, Awake, Oriented x3 - Psychiatric Exam Psychiatric exam: Normal Affect, Normal Mood - Skin Skin Exam: Dry, Normal Color, Warm Assessment and Plan - Assessment and Plan (Free Text) Plan: 1. Diverticulitis with microperforation CT Abdomen Pelvis IV Contrast- 03/27/17- Marked wall thickening and associated inflammatory changes involving the rectosigmoid colon comptaible with acute diverticulitis. Small foci of adjacent air consistent with microperforation. 2.5x 2.2 cm heterogeneous left adrenal gland mass. Adrenal protocol MRI may be considered for further characterization if indicated. Hepatomegaly. Hepatic Steatosis. Small to moderate hiatal hernia. GI Consult- Dr. Lopes General Surgery Consult- Dr. Michael No surgical intervention needed at this time, per gen surgery Tolerating CLD - advance diet as tolerated to low reside, advise high fiber diet as outpt once acute symptoms resolve, per GI GI recommends colonoscopy in 6-8 weeks following discharge from the hospital. IVF NS @ 125cc/hr Zosyn 3.375gm IVPB Q6h Flagyl 500mg IVPB Q8h Pain control changed: Morphine 2mg IVP Q4h PRN for moderate pain Morphine 1mg IVP Q3h PRN for breakthrough pain Zofran 4mg IVP Q6h PRN Blood cultures negative at 24 hours 2. Adrenal Mass 2.5x 2.2 cm heterogeneous left adrenal gland mass. Discussed with patient importance of follow up for further evaluation of Adrenal mass as out patient. Adrenal protocol MRI may be considered for further characterization if indicated. No indication for further workup in the hospital. 3. Obesity HgbA1C - 5.7 Lipid Panel - HDL 43; LDL 64; Cholesterol 152; Triglycerides 204 4. Alcohol Abuse Ativan 1mg IVP Q3h PRN for withdrawal symptoms 5. Inspiratory Wheezing Duoneb Q6h PRN 6.Prophylactic Measures Heparin 5000U SC Q8h Protonix 40mg IVP discontinued Started Pepcid 20mg PO daily Started Florastor 250mg PO BID Amilcar Caraballo PGY 1 <Ruy Wiggins M - Last Filed: 03/29/17 15:16> Objective - Vital Signs/Intake and Output Vital Signs (last 24 hours): Temp Pulse Resp BP Pulse Ox 98.1 F 79 20 123/86 97 03/29/17 08:57 03/29/17 08:57 03/29/17 08:57 03/29/17 08:57 03/29/17 08:57 Intake and Output: 03/29/17 03/29/17 06:59 18:59 Intake Total 2750 Output Total 2500 Balance 250 - Medications Medications: Current Medications Albuterol/Ipratropium (Duoneb 3 Mg/0.5 Mg (3 Ml) Ud) 3 ml INH RQ6 PRN PRN Reason: Shortness of Breath Famotidine (Pepcid) 20 mg PO DAILY [facility] Last Admin: 03/29/17 09:08 Dose: 20 mg Heparin Sodium (Porcine) (Heparin) 5,000 units SC Q8 [facility] Last Admin: 03/29/17 13:11 Dose: 5,000 units Metronidazole (Flagyl) 500 mg in 100 mls @ 100 mls/hr IVPB Q8 [facility] Last Admin: 03/29/17 13:11 Dose: 100 mls/hr Piperacillin Sod/Tazobactam Sod (Zosyn 3.375 Gm Iv Premix) 3.375 gm in 50 mls @ 100 mls/hr IVPB Q6H [facility] Last Admin: 03/29/17 09:04 Dose: 100 mls/hr Sodium Chloride (Sodium Chloride 0.9%) 1,000 mls @ 125 mls/hr IV .Q8H [facility] Last Admin: 03/29/17 15:12 Dose: Not Given Lorazepam (Ativan) 1 mg IVP Q3H PRN PRN Reason: Withdrawal symptoms Morphine Sulfate (Morphine) 2 mg IVP Q4H PRN PRN Reason: Pain, severe (8-10) Last Admin: 03/29/17 00:06 Dose: 2 mg Morphine Sulfate (Morphine) 1 mg IVP Q3H PRN PRN Reason: Moderate Breakthrough Pain Ondansetron HCl (Zofran Inj) 4 mg IVP Q6H PRN PRN Reason: Nausea/Vomiting Saccharomyces Boulardii (Florastor) 250 mg PO BID [facility] Last Admin: 03/29/17 09:04 Dose: 250 mg - Labs Labs: 03/29/17 07:13 03/29/17 07:13 PT 11.8 SECONDS (9.7-12.2) 03/27/17 13:55 INR 1.0 03/27/17 13:55 APTT 30 SECONDS (21-34) 03/27/17 13:55 Attending/Attestation - Attestation I have personally seen and examined this patient.: Yes I have fully participated in the care of the patient.: Yes I have reviewed all pertinent clinical information, including history, physical exam and plan: Yes Notes (Text): 03/29/17 15:15 Patient was seen and examined at bedside with the resident Continue IV antibiotics Advance diet as tolerated Surgery and GI evaluation seen in appreciated Discussed plan of care with the resident and I agree with assessment/plan documented above
[2017-03-28] MEDS: Saccharomyces Boulardi 250 mg Cap PO SCH ×2 (11:30→18:19)
[2017-03-29] MEDS: Morphine 4 MG/ML VIAL IVP PRN (00:06)
[2017-03-29] MEDS: Piperacill/Tazo 3.375gm in Dex 3.375 GM/50 ML BAG IVPB SCH ×2 (03:27→09:04)
[2017-03-29] MEDS: metroNIDAZOLE IV 500 mg/100 ml 500 MG/100 ML BAG IVPB SCH ×2 (06:14→13:11)
--- NOTE | 2017-03-29 07:02 | CP.PCM.PN ---
<Floyd eDlgado - Last Filed: 03/29/17 09:12> Subjective - Date & Time of Evaluation Date of Evaluation: 03/29/17 Time of Evaluation: 06:45 - Subjective Subjective: PGY5 GI Fellow Progress Note Patient seen and examined bedside this morning. The patient denies any significant discomfort today. No nausea, vomiting. Tolerating liquid diet without issue. No fever, chills. Had 2 loose stool yesterday, 1 this AM. 12 system ROS performed and negative except where stated. Objective - Vital Signs/Intake and Output Vital Signs (last 24 hours): Temp Pulse Resp BP Pulse Ox 98.8 F 80 20 136/78 97 03/28/17 23:50 03/28/17 23:50 03/28/17 23:50 03/28/17 23:50 03/28/17 23:50 Intake and Output: 03/28/17 03/29/17 18:59 06:59 Intake Total 2750 Output Total 2500 Balance 250 - Medications Medications: Current Medications Albuterol/Ipratropium (Duoneb 3 Mg/0.5 Mg (3 Ml) Ud) 3 ml INH RQ6 PRN PRN Reason: Shortness of Breath Famotidine (Pepcid) 20 mg PO DAILY [facility] Last Admin: 03/28/17 11:00 Dose: 20 mg Heparin Sodium (Porcine) (Heparin) 5,000 units SC Q8 [facility] Last Admin: 03/29/17 06:13 Dose: 5,000 units Metronidazole (Flagyl) 500 mg in 100 mls @ 100 mls/hr IVPB Q8 [facility] Last Admin: 03/29/17 06:14 Dose: 100 mls/hr Piperacillin Sod/Tazobactam Sod (Zosyn 3.375 Gm Iv Premix) 3.375 gm in 50 mls @ 100 mls/hr IVPB Q6H [facility] Last Admin: 03/29/17 03:27 Dose: 100 mls/hr Sodium Chloride (Sodium Chloride 0.9%) 1,000 mls @ 125 mls/hr IV .Q8H [facility] Last Admin: 03/28/17 22:38 Dose: 125 mls/hr Lorazepam (Ativan) 1 mg IVP Q3H PRN PRN Reason: Withdrawal symptoms Morphine Sulfate (Morphine) 2 mg IVP Q4H PRN PRN Reason: Pain, severe (8-10) Last Admin: 03/29/17 00:06 Dose: 2 mg Morphine Sulfate (Morphine) 1 mg IVP Q3H PRN PRN Reason: Moderate Breakthrough Pain Ondansetron HCl (Zofran Inj) 4 mg IVP Q6H PRN PRN Reason: Nausea/Vomiting Pneumococcal Polyvalent Vaccine (Pneumovax 23 Vaccine) 0.5 ml IM .ONCE ONE Stop: 03/29/17 10:01 Saccharomyces Boulardii (Florastor) 250 mg PO BID [facility] Last Admin: 03/28/17 18:19 Dose: 250 mg - Labs Labs: 03/28/17 07:08 03/28/17 07:08 PT 11.8 SECONDS (9.7-12.2) 03/27/17 13:55 INR 1.0 03/27/17 13:55 APTT 30 SECONDS (21-34) 03/27/17 13:55 - Constitutional Appears: Non-toxic, No Acute Distress - Eye Exam Eye Exam: EOMI, PERRL - ENT Exam ENT Exam: Mucous Membranes Moist - Respiratory Exam Respiratory Exam: Clear to Ausculation Bilateral. absent: Rales, Rhonchi, Wheezes - Cardiovascular Exam Cardiovascular Exam: RRR, +S1, +S2 - GI/Abdominal Exam GI & Abdominal Exam: Soft, Tenderness (LLQ), Normal Bowel Sounds. absent: Distended, Firm, Guarding, Rigid, Organomegaly - Extremities Exam Extremities Exam: Normal Inspection. absent: Pedal Edema - Neurological Exam Neurological Exam: Alert, Awake, Oriented x3 - Psychiatric Exam Psychiatric exam: Normal Affect, Normal Mood - Skin Skin Exam: Dry, Warm Assessment and Plan - Assessment and Plan (Free Text) Assessment: Pt is a 51yo male with no significant PMHx who presented to the ED with new onset abdominal pain for 3 days. -Acute complicated sigmoid diverticulitis with microperforation Plan: -No plan for surigcal intervention per surgical team -Continue with IV ABX - could change coverage to Cipro/Flagyl; do not believe patient requires antipseudomonal coverage from Zosyn -Awaiting AM blood work -Pain decreased, tolerating PO -Advance diet to full liquid -Will need colonoscopy 6-8 weeks after resolution of symptoms -Recommend assistance from case mgmt/SW for patient to obtain [facility] for appropriate follow up -If tolerating PO and pain controlled, OK for D/C from GI standpoint <Dario Canales - Last Filed: 03/29/17 14:27> Objective - Vital Signs/Intake and Output Vital Signs (last 24 hours): Temp Pulse Resp BP Pulse Ox 98.1 F 79 20 123/86 97 03/29/17 08:57 03/29/17 08:57 03/29/17 08:57 03/29/17 08:57 03/29/17 08:57 Intake and Output: 03/29/17 03/29/17 06:59 18:59 Intake Total 2750 Output Total 2500 Balance 250 - Medications Medications: Current Medications Albuterol/Ipratropium (Duoneb 3 Mg/0.5 Mg (3 Ml) Ud) 3 ml INH RQ6 PRN PRN Reason: Shortness of Breath Famotidine (Pepcid) 20 mg PO DAILY [facility] Last Admin: 03/29/17 09:08 Dose: 20 mg Heparin Sodium (Porcine) (Heparin) 5,000 units SC Q8 [facility] Last Admin: 03/29/17 13:11 Dose: 5,000 units Metronidazole (Flagyl) 500 mg in 100 mls @ 100 mls/hr IVPB Q8 [facility] Last Admin: 03/29/17 13:11 Dose: 100 mls/hr Piperacillin Sod/Tazobactam Sod (Zosyn 3.375 Gm Iv Premix) 3.375 gm in 50 mls @ 100 mls/hr IVPB Q6H [facility] Last Admin: 03/29/17 09:04 Dose: 100 mls/hr Sodium Chloride (Sodium Chloride 0.9%) 1,000 mls @ 125 mls/hr IV .Q8H [facility] Last Admin: 03/29/17 08:00 Dose: 125 mls/hr Lorazepam (Ativan) 1 mg IVP Q3H PRN PRN Reason: Withdrawal symptoms Morphine Sulfate (Morphine) 2 mg IVP Q4H PRN PRN Reason: Pain, severe (8-10) Last Admin: 03/29/17 00:06 Dose: 2 mg Morphine Sulfate (Morphine) 1 mg IVP Q3H PRN PRN Reason: Moderate Breakthrough Pain Ondansetron HCl (Zofran Inj) 4 mg IVP Q6H PRN PRN Reason: Nausea/Vomiting Saccharomyces Boulardii (Florastor) 250 mg PO BID [facility] Last Admin: 03/29/17 09:04 Dose: 250 mg - Labs Labs: 03/29/17 07:13 03/29/17 07:13 PT 11.8 SECONDS (9.7-12.2) 03/27/17 13:55 INR 1.0 03/27/17 13:55 APTT 30 SECONDS (21-34) 03/27/17 13:55 Attending/Attestation - Attestation I have personally seen and examined this patient.: Yes I have fully participated in the care of the patient.: Yes I have reviewed all pertinent clinical information, including history, physical exam and plan: Yes Notes (Text): 03/29/17 14:26 51 year old male with acute uncomplicated diverticulitis. 1. Acute diverticulitis Plan: recommend 2 week course of antibiotics -no abscess/perf -advance diet as tolerated -colonoscopy in 2 months
[2017-03-29 07:24] LABS: BASO % 0.3 % (0.0-2.0); EOS # 0.2 K/uL (0.0-0.7); EOS % 2.4 % (0.0-4.0); HEMOGLOBIN 11.2 g/dL (12.0-18.0); LYMPH # 1.4 K/uL (1.0-4.3); LYMPH % 13.7 % (20.0-40.0); MEAN CORPUSCULAR HEMOGLOBIN 30.7 pg (27.0-31.0); MEAN CORPUSCULAR HGB CONC 33.8 g/dL (33.0-37.0); MEAN PLATELET VOLUME 7.6 fL (7.2-11.7); MONO # 1.1 K/uL (0.0-0.8); NEUT # 7.1 K/uL (1.8-7.0); NEUT % 72.6 % (50.0-75.0); RBC 3.66 Mil/uL (4.40-5.90); RED CELL DISTRIBUTION WIDTH 12.8 % (11.5-14.5); WHITE BLOOD COUNT 9.8 K/uL (4.8-10.8)
--- NOTE | 2017-03-29 07:26 | CP.PCM.PN ---
Subjective - Date & Time of Evaluation Date of Evaluation: 03/29/17 Time of Evaluation: 07:24 - Subjective Subjective: PGY [address] Wiggnis Plan: 1. Diverticulitis with microperforation CT Abdomen Pelvis IV Contrast- 03/27/17- Marked wall thickening and associated inflammatory changes involving the rectosigmoid colon comptaible with acute diverticulitis. Small foci of adjacent air consistent with microperforation. 2.5x 2.2 cm heterogeneous left adrenal gland mass. Adrenal protocol MRI may be considered for further characterization if indicated. Hepatomegaly. Hepatic Steatosis. Small to moderate hiatal hernia. GI Consult- Dr. Lopes General Surgery Consult- Dr. Michael No surgical intervention needed at this time, per gen surgery Tolerating CLD - advanced to Full liquid diet for breakfast, advance as tolerated. Advise high fiber diet as outpt once acute symptoms resolve, per GI GI recommends colonoscopy in 6-8 weeks following discharge from the hospital. IVF NS @ 125cc/hr Zosyn 3.375gm IVPB Q6h Flagyl 500mg IVPB Q8h Pain control: Morphine 2mg IVP Q4h PRN for moderate pain, only used once throughout the past 24 hours at midnight. Morphine 1mg IVP Q3h PRN for breakthrough pain Zofran 4mg IVP Q6h PRN Blood cultures negative at 24 hours 2. Adrenal Mass 2.5x 2.2 cm heterogeneous left adrenal gland mass. Discussed with patient importance of follow up for further evaluation of Adrenal mass as out patient. Adrenal protocol MRI may be considered for further characterization if indicated. No indication for further workup in the hospital. 3. Obesity HgbA1C - 5.7 Lipid Panel - HDL 43; LDL 64; Cholesterol 152; Triglycerides 204 4. Alcohol Abuse Ativan 1mg IVP Q3h PRN for withdrawal symptoms 5. Inspiratory Wheezing Duoneb Q6h PRN 6.Prophylactic Measures Heparin 5000U SC Q8h Pepcid 20mg PO daily Florastor 250mg PO BID Amilcar Caraballo PGY 1 Objective - Vital Signs/Intake and Output Vital Signs (last 24 hours): Temp Pulse Resp BP Pulse Ox 98.8 F 80 20 136/78 97 03/28/17 23:50 03/28/17 23:50 03/28/17 23:50 03/28/17 23:50 03/28/17 23:50 Intake and Output: 03/29/17 03/29/17 06:59 18:59 Intake Total 2750 Output Total 2500 Balance 250 - Medications Medications: Current Medications Albuterol/Ipratropium (Duoneb 3 Mg/0.5 Mg (3 Ml) Ud) 3 ml INH RQ6 PRN PRN Reason: Shortness of Breath Famotidine (Pepcid) 20 mg PO DAILY [facility] Last Admin: 03/28/17 11:00 Dose: 20 mg Heparin Sodium (Porcine) (Heparin) 5,000 units SC Q8 [facility] Last Admin: 03/29/17 06:13 Dose: 5,000 units Metronidazole (Flagyl) 500 mg in 100 mls @ 100 mls/hr IVPB Q8 [facility] Last Admin: 03/29/17 06:14 Dose: 100 mls/hr Piperacillin Sod/Tazobactam Sod (Zosyn 3.375 Gm Iv Premix) 3.375 gm in 50 mls @ 100 mls/hr IVPB Q6H [facility] Last Admin: 03/29/17 03:27 Dose: 100 mls/hr Sodium Chloride (Sodium Chloride 0.9%) 1,000 mls @ 125 mls/hr IV .Q8H [facility] Last Admin: 03/28/17 22:38 Dose: 125 mls/hr Lorazepam (Ativan) 1 mg IVP Q3H PRN PRN Reason: Withdrawal symptoms Morphine Sulfate (Morphine) 2 mg IVP Q4H PRN PRN Reason: Pain, severe (8-10) Last Admin: 03/29/17 00:06 Dose: 2 mg Morphine Sulfate (Morphine) 1 mg IVP Q3H PRN PRN Reason: Moderate Breakthrough Pain Ondansetron HCl (Zofran Inj) 4 mg IVP Q6H PRN PRN Reason: Nausea/Vomiting Pneumococcal Polyvalent Vaccine (Pneumovax 23 Vaccine) 0.5 ml IM .ONCE ONE Stop: 03/29/17 10:01 Saccharomyces Boulardii (Florastor) 250 mg PO BID [facility] Last Admin: 03/28/17 18:19 Dose: 250 mg - Labs Labs: 03/28/17 07:08 03/28/17 07:08 PT 11.8 SECONDS (9.7-12.2) 03/27/17 13:55 INR 1.0 03/27/17 13:55 APTT 30 SECONDS (21-34) 03/27/17 13:55 - Constitutional Appears: Non-toxic, No Acute Distress - Head Exam Head Exam: ATRAUMATIC, NORMOCEPHALIC - ENT Exam ENT Exam: Mucous Membranes Moist - Respiratory Exam Respiratory Exam: Clear to Ausculation Bilateral, NORMAL BREATHING PATTERN. absent: Accessory Muscle Use, Respiratory Distress - Cardiovascular Exam Cardiovascular Exam: REGULAR RHYTHM, +S1, +S2 - GI/Abdominal Exam GI & Abdominal Exam: Soft, Tenderness, Normal Bowel Sounds. absent: Distended, Firm, Guarding, Rigid - Extremities Exam Extremities Exam: absent: Calf Tenderness - Back Exam Back Exam: absent: CVA tenderness (L), CVA tenderness (R) - Neurological Exam Neurological Exam: Alert, Awake, Oriented x3 - Psychiatric Exam Psychiatric exam: Normal Affect, Normal Mood - Skin Skin Exam: Dry, Normal Color, Warm
[2017-03-29 08:00] LABS: ALBUMIN 3.2 g/dL (3.5-5.0)
[2017-03-29] MEDS: Sodium Chloride 0.9% 1,000 ML IV SCH ×2 (08:00→15:12)
[2017-03-29 08:03] LABS: ALT/SGPT 23 U/L (21-72); AST/SGOT 16 U/L (17-59); BLOOD UREA NITROGEN 3 mg/dL (9-20); CALCIUM 8.3 mg/dl (8.6-10.4); GFR AFRICAN-AMERICAN > 60; GFR NON-AFRICAN AMERICAN > 60
--- NOTE | 2017-03-29 08:36 | CP.PCM.PN ---
Subjective - Date & Time of Evaluation Date of Evaluation: 03/29/17 Time of Evaluation: 06:25 - Subjective Subjective: General Surgery Note Patient was seen and examined at bedside. Patient reports that he is doing well and his symptoms are improving. Patient had no acute issues overnight. Patient had 3 loose bowel movement yesterday and 1 loose/formed bowel movement this morning. Patient still admits to mild lower abdominal pain, passing flatus but denies nausea, vomiting, fever, chills, dizziness, weakness, chest pain and SOB. Patient is tolerating full liquid diet and ambulating. Objective - Vital Signs/Intake and Output Vital Signs (last 24 hours): Temp Pulse Resp BP Pulse Ox 98.8 F 80 20 136/78 97 03/28/17 23:50 03/28/17 23:50 03/28/17 23:50 03/28/17 23:50 03/28/17 23:50 Intake and Output: 03/29/17 03/29/17 06:59 18:59 Intake Total 2750 Output Total 2500 Balance 250 - Medications Medications: Current Medications Albuterol/Ipratropium (Duoneb 3 Mg/0.5 Mg (3 Ml) Ud) 3 ml INH RQ6 PRN PRN Reason: Shortness of Breath Famotidine (Pepcid) 20 mg PO DAILY [facility] Last Admin: 03/28/17 11:00 Dose: 20 mg Heparin Sodium (Porcine) (Heparin) 5,000 units SC Q8 [facility] Last Admin: 03/29/17 06:13 Dose: 5,000 units Metronidazole (Flagyl) 500 mg in 100 mls @ 100 mls/hr IVPB Q8 [facility] Last Admin: 03/29/17 06:14 Dose: 100 mls/hr Piperacillin Sod/Tazobactam Sod (Zosyn 3.375 Gm Iv Premix) 3.375 gm in 50 mls @ 100 mls/hr IVPB Q6H [facility] Last Admin: 03/29/17 03:27 Dose: 100 mls/hr Sodium Chloride (Sodium Chloride 0.9%) 1,000 mls @ 125 mls/hr IV .Q8H [facility] Last Admin: 03/28/17 22:38 Dose: 125 mls/hr Lorazepam (Ativan) 1 mg IVP Q3H PRN PRN Reason: Withdrawal symptoms Morphine Sulfate (Morphine) 2 mg IVP Q4H PRN PRN Reason: Pain, severe (8-10) Last Admin: 03/29/17 00:06 Dose: 2 mg Morphine Sulfate (Morphine) 1 mg IVP Q3H PRN PRN Reason: Moderate Breakthrough Pain Ondansetron HCl (Zofran Inj) 4 mg IVP Q6H PRN PRN Reason: Nausea/Vomiting Pneumococcal Polyvalent Vaccine (Pneumovax 23 Vaccine) 0.5 ml IM .ONCE ONE Stop: 03/29/17 10:01 Saccharomyces Boulardii (Florastor) 250 mg PO BID [facility] Last Admin: 03/28/17 18:19 Dose: 250 mg - Labs Labs: 03/29/17 07:13 03/29/17 07:13 PT 11.8 SECONDS (9.7-12.2) 03/27/17 13:55 INR 1.0 03/27/17 13:55 APTT 30 SECONDS (21-34) 03/27/17 13:55 - Constitutional Appears: Well, No Acute Distress - Head Exam Head Exam: ATRAUMATIC, NORMAL INSPECTION - Eye Exam Eye Exam: EOMI, Normal appearance - ENT Exam ENT Exam: Mucous Membranes Moist, Normal Exam - Respiratory Exam Respiratory Exam: Clear to Ausculation Bilateral, NORMAL BREATHING PATTERN - Cardiovascular Exam Cardiovascular Exam: REGULAR RHYTHM, +S1, +S2 - GI/Abdominal Exam GI & Abdominal Exam: Soft, Tenderness, Normal Bowel Sounds Additional comments: Mild lower abdomen tenderness - Extremities Exam Extremities Exam: Normal Capillary Refill, Normal Inspection. absent: Calf Tenderness, Pedal Edema, Tenderness - Neurological Exam Neurological Exam: Alert, Awake, Oriented x3 - Psychiatric Exam Psychiatric exam: Normal Affect, Normal Mood Assessment and Plan (1) Acute diverticulitis Assessment & Plan: Stable No surgical intervention at this time Continue IV Fluids Continue antibiotics regimen as per primary team and GI recommendation WBC trended down to WNL Pain control as needed Advanced to regular diet Status: Acute Status: Acute
[2017-03-29] MEDS: Saccharomyces Boulardi 250 mg Cap PO SCH (09:04)
[2017-03-29] MEDS ORDERED: Pneumococcal 23-Valent Vaccine IM ONE (10:00)
[2017-03-29] MEDS ORDERED: Potassium Chloride 20 mEq/15 ml LIQ UD PO ONE (10:03)
[2017-03-29 15:57] VITALS: BP 118/75; PULSE 88; RESP 18; TEMP 98.9; O2SAT 98
--- NOTE | 2017-03-29 22:11 | CP.PCM.DIS ---
<Amilcar Caraballo - Last Filed: 03/29/17 22:09> Provider - Provider Date of Admission: 03/27/17 13:23 Attending physician: Ruy Wiggins MD Consults: GI: Moses Gen Surg: Arago Time Spent in preparation of Discharge (in minutes): 45 Diagnosis - Discharge Diagnosis (1) Acute diverticulitis Status: Acute (2) Adrenal mass, left Status: Acute Priority: High Comment: CT abd/pelvis w/IV con on 03/27 - showed 2.5x 2.2 cm heterogeneous left adrenal gland mass. Hospital Course - Lab Results Lab Results: Micro Results 03/27/17 14:30 Blood Blood Culture - Preliminary NO GROWTH AFTER 48 HOURS 03/27/17 13:55 Blood Blood Culture - Preliminary NO GROWTH AFTER 48 HOURS Most Recent Lab Values WBC 9.8 K/uL (4.8-10.8) 03/29/17 07:13 RBC 3.66 Mil/uL (4.40-5.90) L 03/29/17 07:13 Hgb 11.2 g/dL (12.0-18.0) L 03/29/17 07:13 Hct 33.3 % (35.0-51.0) L 03/29/17 07:13 MCV 91.0 fL (80.0-94.0) 03/29/17 07:13 MCH 30.7 pg (27.0-31.0) 03/29/17 07:13 MCHC 33.8 g/dL (33.0-37.0) 03/29/17 07:13 RDW 12.8 % (11.5-14.5) 03/29/17 07:13 Plt Count 215 K/uL (130-400) 03/29/17 07:13 MPV 7.6 fL (7.2-11.7) 03/29/17 07:13 Neut % (Auto) 72.6 % (50.0-75.0) 03/29/17 07:13 Lymph % (Auto) 13.7 % (20.0-40.0) L 03/29/17 07:13 [place] % (Auto) 11.0 % (0.0-10.0) H 03/29/17 07:13 Eos % (Auto) 2.4 % (0.0-4.0) 03/29/17 07:13 Baso % (Auto) 0.3 % (0.0-2.0) 03/29/17 07:13 Neut # 7.1 K/uL (1.8-7.0) H 03/29/17 07:13 Lymph # 1.4 K/uL (1.0-4.3) 03/29/17 07:13 [place] # 1.1 K/uL (0.0-0.8) H 03/29/17 07:13 Eos # 0.2 K/uL (0.0-0.7) 03/29/17 07:13 Baso # 0.0 K/uL (0.0-0.2) 03/29/17 07:13 Neutrophils % (Manual) 82 % (50-75) H 03/28/17 07:08 Lymphocytes % (Manual) 8 % (20-40) L 03/28/17 07:08 Monocytes % (Manual) 10 % (0-10) 03/28/17 07:08 Platelet Estimate Normal (NORMAL) 03/28/17 07:08 RBC Morphology Normal 03/27/17 10:16 Hypochromasia (manual) Slight 03/28/17 07:08 Poikilocytosis (manual Slight 03/28/17 07:08 Anisocytosis (manual) Slight 03/28/17 07:08 PT 11.8 SECONDS (9.7-12.2) 03/27/17 13:55 INR 1.0 03/27/17 13:55 APTT 30 SECONDS (21-34) 03/27/17 13:55 pO2 42 mm/Hg (30-55) 03/27/17 16:35 VBG pH 7.35 (7.32-7.43) 03/27/17 16:35 VBG pCO2 40 mmHg (40-60) 03/27/17 16:35 VBG HCO3 21.7 mmol/L 03/27/17 16:35 VBG Total CO2 23.3 mmol/L (22-28) 03/27/17 16:35 VBG O2 Sat (Calc) 67.9 % (40-65) H 03/27/17 16:35 VBG Base Excess -3.3 mmol/L (0.0-2.0) L 03/27/17 16:35 VBG Potassium 3.0 mmol/L (3.6-5.2) L 03/27/17 16:35 Sodium 137.0 mmol/l (132-148) 03/27/17 16:35 Chloride 109.0 mmol/L (98-107) H 03/27/17 16:35 Glucose 87 mg/dl (75-110) 03/27/17 16:35 Lactate 0.7 mmol/L (0.7-2.1) 03/27/17 16:35 FiO2 21.0 % 03/27/17 16:35 Sodium 138 mmol/L (132-148) 03/29/17 07:13 Potassium 3.5 mmol/L (3.6-5.2) L 03/29/17 07:13 Chloride 100 mmol/L (98-107) 03/29/17 07:13 Carbon Dioxide 26 mmol/L (22-30) 03/29/17 07:13 Anion Gap 16 (10-20) 03/29/17 07:13 BUN 3 mg/dL (9-20) L 03/29/17 07:13 Creatinine 0.7 MG/DL (0.8-1.5) L 03/29/17 07:13 Est GFR ( Amer) > 60 03/29/17 07:13 Est GFR (Non-Af Amer) > 60 03/29/17 07:13 Random Glucose 95 mg/dL (75-110) 03/29/17 07:13 Hemoglobin A1c 5.7 % (4.2-6.5) 03/28/17 07:08 Calcium 8.3 mg/dl (8.6-10.4) L 03/29/17 07:13 Total Bilirubin 0.6 mg/dL (0.2-1.3) 03/29/17 07:13 AST 16 U/L (17-59) L 03/29/17 07:13 ALT 23 U/L (21-72) 03/29/17 07:13 Alkaline Phosphatase 50 U/L (38-126) 03/29/17 07:13 Total Protein 6.4 g/dL (6.3-8.3) 03/29/17 07:13 Albumin 3.2 g/dL (3.5-5.0) L 03/29/17 07:13 Globulin 3.1 gm/dL (2.2-3.9) 03/29/17 07:13 Albumin/Globulin Ratio 1.0 (1.0-2.1) 03/29/17 07:13 Triglycerides 204 mg/dL (0-149) H 03/28/17 07:08 Cholesterol 152 mg/dL (0-199) 03/28/17 07:08 LDL Cholesterol Direct 64 mg/dL (0-129) 03/28/17 07:08 HDL Cholesterol 43 mg/dL (30-70) 03/28/17 07:08 Lipase 28 U/L (23-300) 03/27/17 10:16 Venous Blood Potassium 3.0 mmol/L (3.6-5.2) L 03/27/17 16:35 Urine Color [place] (YELLOW) 03/27/17 10:16 Urine Clarity Hazy (Clear) 03/27/17 10:16 Urine pH 5.0 (5.0-8.0) 03/27/17 10:16 Ur Specific [place] 1.019 (1.003-1.030) 03/27/17 10:16 Urine Protein 1+ mg/dL (NEGATIVE) H 03/27/17 10:16 Urine Glucose (UA) Normal mg/dL (Normal) 03/27/17 10:16 Urine Ketones Negative mg/dL (NEGATIVE) 03/27/17 10:16 Urine Blood 1+ (NEGATIVE) H 03/27/17 10:16 Urine Nitrate Negative (NEGATIVE) 03/27/17 10:16 Urine Bilirubin Negative (NEGATIVE) 03/27/17 10:16 Urine Urobilinogen Normal mg/dL (0.2-1.0) 03/27/17 10:16 Ur Leukocyte Esterase Neg Jorge Alberto/uL (Negative) 03/27/17 10:16 Urine WBC (Auto) 3 /hpf (0-5) 03/27/17 10:16 Urine RBC (Auto) 7 /hpf (0-3) H 03/27/17 10:16 Hyaline Casts 6-10 /lpf (0-2) H 03/27/17 10:16 Granular Casts (Auto) 5 /lpf (0-1) 03/27/17 10:16 - Hospital Course Hospital Course: As per admission documentation HPI: Patient is a 51 year old male with no PMHx presenting to the ED complaining of abdominal pain that started 3 days ago. He states he was playing basketball with his kid when he suddenly felt a 3-4/10 pain, describing it as a band tightening around his upper abdomen. As the day progressed, the pain worsened and started to radiate down to his lower abdomen. He says he has never had a pain like this before, and that the pain was continuous. He said he tried taking some pepto bismol with no relief. He reports that when he urinates, the pain starts to radiate upward, though he denies any dysuria. He denies any fevers or chills. He states he has had decreased appetite, and two episodes of vomiting yellow-white foamy material. Denies any changes in bowel habits. Patient was admitted on 03/27/2017 for a 3 day history of abdominal pain. Patient has no history of diverticulitis. GI consult was placed to Dr. Charles Lopes, who agreed with medical team's antimicrobial management and recommended a surgical consult due to microperforations seen on CT scan on 03/27/17. On same CT on 03/27, a 2.5x 2.2 cm heterogeneous left adrenal gland mass was discovered incidentally. Surgery consult was placed to Dr. Anderson Michael who recommended against surgery at this time. On day 2 of hospitalization, the patient's lower GI symptoms began to improve with antimicrobial therapy. Patient was placed on a clear liquid diet and advanced as tolerated. Patient's requested that a physician come and discuss the CT findings in greater detail. With patient's approval, results of CT on 03/27/2017 showing acute diverticulitis with micro- perforations and a 2.5x 2.2 cm heterogeneous left adrenal gland mass were discussed. The importance of further evaluation and follow up of this mass upon discharge was stressed. The patient and his stated they understood and stated they will be following up with the [facility]. On day 3 of hospitalization, the patient's pain was drastically improved and he was able to tolerate a regular diet. He had the ability to pass formed stools and flatus. He is now cleared by the medical team to be discharged to home. It is recommended that the patient follow up at the [facility] and call to make an appointment at to establish care. Importance of follow up colonoscopy stressed to patient. Patient has no insurance and is currently receiving yareli care. Discharge Instructions: Please discharge patient home, as per Dr. Wiggins. Patient is to continue medications as instructed. Patient is to follow up with his Primary Medical Doctor in 1 week. Patient is to follow up with Moses in 1 week. Patient is to follow up with Dr. Michael in 1 week. If symptoms worsen, patient is to return to the hospital for further evaluation and treatment. Instructions were explained to the patient. Patient understands and agrees. Discharge medications: Ciprofloxacin 500 mg BID x 7 days Flagyl 500 mg TID x 7 days - Date & Time of H&P Date of H&P: 03/27/17 Time of H&P: 14:50 Discharge Exam - Head Exam Head Exam: ATRAUMATIC, NORMAL INSPECTION - ENT Exam ENT Exam: Mucous Membranes Moist - Respiratory Exam Respiratory Exam: Clear to PA & Lateral, NORMAL BREATHING PATTERN. absent: Accessory Muscle Use, Wheezes, Respiratory Distress - Cardiovascular Exam Cardiovascular Exam: REGULAR RHYTHM, +S1, +S2 - GI/Abdominal Exam GI & Abdominal Exam: Normal Bowel Sounds, Soft, Tenderness (mild tenderness to palpation in the LLQ). absent: Distended, Firm, Guarding, Rebound, Rigid - Back Exam Back exam: absent: CVA tenderness (L), CVA tenderness (R) - Neurological Exam Neurological exam: Alert, Normal Gait, Oriented x3 - Psychiatric Exam Psychiatric exam: Normal Affect, Normal Mood - Skin Skin Exam: Dry, Normal Color, Warm Discharge Plan - Discharge Medications Prescriptions: Ciprofloxacin [Cipro] 500 mg PO BID 7 Days metroNIDAZOLE [Flagyl] 500 mg PO TID 7 Days - Follow Up Plan Condition: FAIR Disposition: HOME/ ROUTINE Instructions: Ciprofloxacin (By mouth), Metronidazole (By mouth), Diverticulitis (DC), Sepsis (GEN) Additional Instructions: Please discharge patient home, as per Dr. Wiggins. Patient is to continue medications as instructed. Patient is to follow up with his Primary Medical Doctor in 1 week. Patient is to follow up with Moses in 1 week. Patient is to follow up with Dr. Michael in 1 week. If symptoms worsen, patient is to return to the hospital for further evaluation and treatment. Instructions were explained to the patient. Patient understands and agrees. Discharge medications: Ciprofloxacin 500 mg BID x 7 days Flagyl 500 mg TID x 7 days Referrals: Anderson Michael MD [Staff Provider] - Charles Lopes MD [Staff Provider] - <Ruy Wiggins - Last Filed: 03/30/17 18:10> Provider - Provider Date of Admission: 03/27/17 13:23 Attending physician: Ruy Wiggins MD Hospital Course - Lab Results Lab Results: Micro Results 03/27/17 13:55 Blood Blood Culture - Preliminary NO GROWTH AFTER 3 DAYS 03/27/17 14:30 Blood S.aureus & Coag-Neg Staph PNA FISH - Final 03/27/17 14:30 Blood Blood Culture - Preliminary Gram Positive Cocci 03/27/17 14:30 Blood Gram Stain - Final Most Recent Lab Values WBC 9.8 K/uL (4.8-10.8) 03/29/17 07:13 RBC 3.66 Mil/uL (4.40-5.90) L 03/29/17 07:13 Hgb 11.2 g/dL (12.0-18.0) L 03/29/17 07:13 Hct 33.3 % (35.0-51.0) L 03/29/17 07:13 MCV 91.0 fL (80.0-94.0) 03/29/17 07:13 MCH 30.7 pg (27.0-31.0) 03/29/17 07:13 MCHC 33.8 g/dL (33.0-37.0) 03/29/17 07:13 RDW 12.8 % (11.5-14.5) 03/29/17 07:13 Plt Count 215 K/uL (130-400) 03/29/17 07:13 MPV 7.6 fL (7.2-11.7) 03/29/17 07:13 Neut % (Auto) 72.6 % (50.0-75.0) 03/29/17 07:13 Lymph % (Auto) 13.7 % (20.0-40.0) L 03/29/17 07:13 [place] % (Auto) 11.0 % (0.0-10.0) H 03/29/17 07:13 Eos % (Auto) 2.4 % (0.0-4.0) 03/29/17 07:13 Baso % (Auto) 0.3 % (0.0-2.0) 03/29/17 07:13 Neut # 7.1 K/uL (1.8-7.0) H 03/29/17 07:13 Lymph # 1.4 K/uL (1.0-4.3) 03/29/17 07:13 [place] # 1.1 K/uL (0.0-0.8) H 03/29/17 07:13 Eos # 0.2 K/uL (0.0-0.7) 03/29/17 07:13 Baso # 0.0 K/uL (0.0-0.2) 03/29/17 07:13 Neutrophils % (Manual) 82 % (50-75) H 03/28/17 07:08 Lymphocytes % (Manual) 8 % (20-40) L 03/28/17 07:08 Monocytes % (Manual) 10 % (0-10) 03/28/17 07:08 Platelet Estimate Normal (NORMAL) 03/28/17 07:08 RBC Morphology Normal 03/27/17 10:16 Hypochromasia (manual) Slight 03/28/17 07:08 Poikilocytosis (manual Slight 03/28/17 07:08 Anisocytosis (manual) Slight 03/28/17 07:08 PT 11.8 SECONDS (9.7-12.2) 03/27/17 13:55 INR 1.0 03/27/17 13:55 APTT 30 SECONDS (21-34) 03/27/17 13:55 pO2 42 mm/Hg (30-55) 03/27/17 16:35 VBG pH 7.35 (7.32-7.43) 03/27/17 16:35 VBG pCO2 40 mmHg (40-60) 03/27/17 16:35 VBG HCO3 21.7 mmol/L 03/27/17 16:35 VBG Total CO2 23.3 mmol/L (22-28) 03/27/17 16:35 VBG O2 Sat (Calc) 67.9 % (40-65) H 03/27/17 16:35 VBG Base Excess -3.3 mmol/L (0.0-2.0) L 03/27/17 16:35 VBG Potassium 3.0 mmol/L (3.6-5.2) L 03/27/17 16:35 Sodium 137.0 mmol/l (132-148) 03/27/17 16:35 Chloride 109.0 mmol/L (98-107) H 03/27/17 16:35 Glucose 87 mg/dl (75-110) 03/27/17 16:35 Lactate 0.7 mmol/L (0.7-2.1) 03/27/17 16:35 FiO2 21.0 % 03/27/17 16:35 Sodium 138 mmol/L (132-148) 03/29/17 07:13 Potassium 3.5 mmol/L (3.6-5.2) L 03/29/17 07:13 Chloride 100 mmol/L (98-107) 03/29/17 07:13 Carbon Dioxide 26 mmol/L (22-30) 03/29/17 07:13 Anion Gap 16 (10-20) 03/29/17 07:13 BUN 3 mg/dL (9-20) L 03/29/17 07:13 Creatinine 0.7 MG/DL (0.8-1.5) L 03/29/17 07:13 Est GFR ( Amer) > 60 03/29/17 07:13 Est GFR (Non-Af Amer) > 60 03/29/17 07:13 Random Glucose 95 mg/dL (75-110) 03/29/17 07:13 Hemoglobin A1c 5.7 % (4.2-6.5) 03/28/17 07:08 Calcium 8.3 mg/dl (8.6-10.4) L 03/29/17 07:13 Total Bilirubin 0.6 mg/dL (0.2-1.3) 03/29/17 07:13 AST 16 U/L (17-59) L 03/29/17 07:13 ALT 23 U/L (21-72) 03/29/17 07:13 Alkaline Phosphatase 50 U/L (38-126) 03/29/17 07:13 Total Protein 6.4 g/dL (6.3-8.3) 03/29/17 07:13 Albumin 3.2 g/dL (3.5-5.0) L 03/29/17 07:13 Globulin 3.1 gm/dL (2.2-3.9) 03/29/17 07:13 Albumin/Globulin Ratio 1.0 (1.0-2.1) 03/29/17 07:13 Triglycerides 204 mg/dL (0-149) H 03/28/17 07:08 Cholesterol 152 mg/dL (0-199) 03/28/17 07:08 LDL Cholesterol Direct 64 mg/dL (0-129) 03/28/17 07:08 HDL Cholesterol 43 mg/dL (30-70) 03/28/17 07:08 Lipase 28 U/L (23-300) 03/27/17 10:16 Venous Blood Potassium 3.0 mmol/L (3.6-5.2) L 03/27/17 16:35 Urine Color [place] (YELLOW) 03/27/17 10:16 Urine Clarity Hazy (Clear) 03/27/17 10:16 Urine pH 5.0 (5.0-8.0) 03/27/17 10:16 Ur Specific [place] 1.019 (1.003-1.030) 03/27/17 10:16 Urine Protein 1+ mg/dL (NEGATIVE) H 03/27/17 10:16 Urine Glucose (UA) Normal mg/dL (Normal) 03/27/17 10:16 Urine Ketones Negative mg/dL (NEGATIVE) 03/27/17 10:16 Urine Blood 1+ (NEGATIVE) H 03/27/17 10:16 Urine Nitrate Negative (NEGATIVE) 03/27/17 10:16 Urine Bilirubin Negative (NEGATIVE) 03/27/17 10:16 Urine Urobilinogen Normal mg/dL (0.2-1.0) 03/27/17 10:16 Ur Leukocyte Esterase Neg Jorge Alberto/uL (Negative) 03/27/17 10:16 Urine WBC (Auto) 3 /hpf (0-5) 03/27/17 10:16 Urine RBC (Auto) 7 /hpf (0-3) H 03/27/17 10:16 Hyaline Casts 6-10 /lpf (0-2) H 03/27/17 10:16 Granular Casts (Auto) 5 /lpf (0-1) 03/27/17 10:16 Attending/Attestation - Attestation I have personally seen and examined this patient.: Yes I have fully participated in the care of the patient.: Yes I have reviewed all pertinent clinical information, including history, physical exam and plan: Yes Notes (Text): 03/30/17 18:09 Patient was seen and examined at bedside with the resident Patient is awake alert and able to tolerate oral diet Patient's abdominal pain has resolved completely Patient remained afebrile and white count was return to normal We will discharge the patient on antibiotic He will follow with the gastric nephrology patient to have a colonoscopy in 6-8 weeks Discharge plan discussed with the patient in detail and he verbalized understanding I discussed with the biomedical field service engineer and I agree with the assessment and plan documented by the resident in the discharge note.
--- NOTE | 2017-03-30 21:21 | PQF SEPSIS ---
This form is a permanent part of the medical record Clarification of your documentation is requested to better reflect the severity of illness and intensity of treatment of your patient. Indicators present [] Temp < 96.8 or > 100.4 [] WBC count > 12,000/mm3 or <000/mm3 or 10% immature neutrophils [] Heart Rate > 90 [] Respiratory Rate > 20 [] Fever or hypothermia [] Chills [X] Positive blood cultures [] Hypotension [] Metabolic acidosis (Elevated lactate level, anion gap or reduced blood pH) [] Acute confusion /Altered Mental Status [] Shock [X] Other: [ ACUTE DIVERTICULITIS WITH MICROPERFORATION, SEPSIS , ADRENAL MASS , HYPERTENSION ] Location in the medical record that reflects the above clinical findings: [ P.NOTE & LAB REPORT FOR 03/27/17 ONLY ] Treatment Provided: [ ABX ( CIPROFLOXACIN ] PHYSICIAN'S RESPONSE Based on your medical judgment of the clinical indicators outlined above, are you treating this patient for a known or suspected: [X] Sepsis / Septicemia Please specify organism if known [] [] SIRS (Systemic Inflammatory Response Syndrome) [] Severe Sepsis (Sepsis with Associated Organ Dysfunction) [] Fever of Unknown Origin [] Other, please indicate: [] [] If Unable to Determine, please check the box, sign and date. Present On Admission (POA) Indicator: [X] Present at the time of admission [] Not present at the time of admission [] Clinically Undetermined In responding to this query, please exercise your independent professional judgment. The fact that a question is asked does not imply that any particular answer is desired or expected. Thank you for your clarification on this documentation. If you have any questions please call:[[phone] ] * Thank you, [Mi Delgado, CCS, NURSE SITTER ] field supervisor seed production MARIA E
== END 2017-03-29 16:32 | disposition home or self-care (01) | DRG 901 ==
LOC: C.ER 09:14 → C.3T 13:23 → C.9E 15:44 → C.6T 17:07
PROVIDERS: ADMIT Internal Medicine; ATTEND Internal Medicine
DX: A41.9 Sepsis, unspecified organism (principal); K57.20 Diverticulitis of large intestine with perforation and abscess without bleeding; E27.8 Other specified disorders of adrenal gland; K76.0 Fatty (change of) liver, not elsewhere classified; R06.2 Wheezing; I10 Essential (primary) hypertension; K44.9 Diaphragmatic hernia without obstruction or gangrene; F10.10 Alcohol abuse, uncomplicated; F17.210 Nicotine dependence, cigarettes, uncomplicated; F12.90 Cannabis use, unspecified, uncomplicated; E78.00 Pure hypercholesterolemia, unspecified; Z91.018 Allergy to other foods; Z23 Encounter for immunization

== ENCOUNTER 2017-04-21 11:09 | Emergency (ER) | payer OTHER ==
[2017-04-21 11:20] VITALS: BMI 29.2
[2017-04-21 12:15] LABS: RBC URINE 1 /hpf (0-3); URINE BILIRUBIN NEGATIVE (NEGATIVE); URINE BLOOD NEGATIVE (NEGATIVE); URINE COLOR Yellow (YELLOW); URINE GLUCOSE (UA) NORMAL (Normal); URINE KETONE TRACE mg/dL (NEGATIVE); URINE LEUKOCYTE ESTERASE NEG Leu/uL (Negative); URINE PROTEIN NEGATIVE (NEGATIVE); URINE UROBILINOGEN NORMAL mg/dL (0.2-1.0); WBC URINE 1 /hpf (0-5)
[2017-04-21 12:19] LABS: BASO # 0.1 K/uL (0.0-0.2); BASO % 0.3 % (0.0-2.0); EOS # 0.3 K/uL (0.0-0.7); EOS % 1.8 % (0.0-4.0); HEMATOCRIT 38.5 % (35.0-51.0); LYMPH # 1.8 K/uL (1.0-4.3); MEAN CELL VOLUME 89.5 fL (80.0-94.0); MEAN CORPUSCULAR HGB CONC 33.5 g/dL (33.0-37.0); MEAN PLATELET VOLUME 7.2 fL (7.2-11.7); MONO # 1.8 K/uL (0.0-0.8); RED CELL DISTRIBUTION WIDTH 13.2 % (11.5-14.5); WHITE BLOOD COUNT 15.3 K/uL (4.8-10.8)
[2017-04-21 12:31] LABS: CHLORIDE 98 mmol/L (98-107)
[2017-04-21 12:32] LABS: POTASSIUM 4.1 mmol/L (3.6-5.2); SODIUM 138 mmol/L (132-148)
[2017-04-21 12:34] LABS: ALB/GLOB RATIO 1.1 (1.0-2.1); ALKALINE PHOSPHATASE 59 U/L (38-126); ALT/SGPT 27 U/L (21-72); AST/SGOT 18 U/L (17-59); BILIRUBIN,TOTAL 0.8 mg/dL (0.2-1.3); BLOOD UREA NITROGEN 9 mg/dL (9-20); CARBON DIOXIDE 27 mmol/L (22-30); GFR AFRICAN-AMERICAN > 60; GLUCOSE,RANDOM 104 mg/dL (75-110); TOTAL PROTEIN 7.4 g/dL (6.3-8.3)
[2017-04-21 12:35] LABS: CALCIUM 9.1 mg/dl (8.6-10.4)
--- NOTE | 2017-04-21 14:24 | C.PDOC ---
History Of Present Illness 52 y/o male with Hx of Diverticulitis presents to ED with complaints of LLQ pain since yesterday, with some improvement today. Patient was admitted to hospital on 03/27/17 and diagnosed with diverticulitis (with microperforation) and discharged home with Cipro and Flagyl. He states symptoms improved but then yesterday he began to have pain. Patient denies fever, chills, nausea, diarrhea, dysuria. Time Seen by Provider: 04/21/17 11:29 Chief Complaint (Nursing): Abdominal Pain History Per: Patient History/Exam Limitations: no limitations Onset/Duration Of Symptoms: Days Current Symptoms Are (Timing): Still Present Location Of Pain/Discomfort: LLQ Quality Of Discomfort: "Pain" Past Medical History Reviewed: Historical Data, Nursing Documentation, Vital Signs Vital Signs: Last Vital Signs Temp 98.9 F 04/21/17 14:45 Pulse 94 H 04/21/17 14:45 Resp 18 04/21/17 14:45 BP 127/79 04/21/17 14:45 Pulse Ox 98 04/21/17 16:02 - Medical History PMH: No Chronic Diseases Family History: States: No Known Family Hx - Social History Hx Alcohol Use: Yes Hx Substance Use: No (Patient denies any substance use) - Immunization History Hx Tetanus Toxoid Vaccination: No Hx Influenza Vaccination: No Hx Pneumococcal Vaccination: No Review Of Systems Except As Marked, All Systems Reviewed And Found Negative. Constitutional: Negative for: Fever, Chills Cardiovascular: Negative for: Chest Pain Respiratory: Negative for: Shortness of Breath Gastrointestinal: Positive for: Abdominal Pain. Negative for: Nausea, Vomiting , Diarrhea Genitourinary: Negative for: Dysuria, Hematuria Musculoskeletal: Negative for: Back Pain Skin: Negative for: Rash Physical Exam - Physical Exam Appears: Well, Non-toxic, No Acute Distress Skin: Normal Color, Warm, No Rash Eye(s): bilateral: Normal Inspection Oral Mucosa: Moist Cardiovascular: Rhythm Regular Respiratory: Normal Breath Sounds, No Rales, No Rhonchi, No Wheezing Gastrointestinal/Abdominal: Bowel Sounds, Soft, Tenderness (Mild LLQ TTP), No Distention, No Guarding, No Rebound Neurological/Psych: Oriented x3 ED Course And Treatment - Laboratory Results Result Diagrams: 04/21/17 12:13 04/21/17 12:15 O2 Sat by Pulse Oximetry: 98 (RA) Pulse Ox Interpretation: Normal Progress Note: Blood work ordered and reviewed. Patient given IV morphine, IV NS bolus. Reevaluation Time: 14:45 Reassessment Condition: Improved (On reassessment, patient is resting comfortably, in no current pain/distress. On exam, abdomen is soft and nonetender. Explained to patient he does have white count, however since pain is mild and just started, and in light of recent CT scan/radiation exposure, I will treat him to with PO antibiotics and not rescan him at this time. Patient is comfortable with plan, and understands that if pain persists or worsens he will need to come back to ED for admission/CT scan. Rxs given for Avelox since patient is recently s/p cipro/flagyl. He was instructed to follow up with PMD in 1-2 days.) Disposition Counseled Patient/Family Regarding: Studies Performed, Diagnosis, Need For Followup, Rx Given - Disposition Referrals: [facility] [Outside] Charles Lopes MD [Staff Provider] - Anderson Michael MD [Staff Provider] - Disposition: HOME/ ROUTINE Disposition Time: 14:45 Condition: STABLE Additional Instructions: FOLLOW UP WITH GI WITHIN 1 WEEK USE MEDICATIONS DIRECTED RETURN TO ER IMMEDIATELY IF SYMPTOMS WORSEN Prescriptions: Hydrocodone/Acetaminophen [Hydrocodon-Acetaminophen 5-325] 1 each PO Q6 PRN #12 tablet PRN Reason: Pain, Moderate (4-7) Moxifloxacin [Avelox] 400 mg PO DAILY #7 tab Instructions: Diverticulitis (ED) Forms: [employer] (Cape Verdean) Print Language: SYRIAC - Clinical Impression Clinical Impression: Diverticulitis - PA / TRANSMISSION TECHNICIAN / Resident Statement MD/DO has examined the patient and agrees with the treatment plan. - Scribe Statement The provider has reviewed the documentation as recorded by the Ciara Randolph All medical record entries made by the Ciara were at my direction and personally dictated by me. I have reviewed the chart and agree that the record accurately reflects my personal performance of the history, physical exam, medical decision making, and the department course for this patient. I have also personally directed, reviewed, and agree with the discharge instructions and disposition.
[2017-04-21 14:46] VITALS: BP 127/79; PULSE 94; RESP 18; TEMP 98.9
[2017-04-21 14:59] VITALS: O2SAT 98
== END 2017-04-21 15:18 | disposition home or self-care (01) ==
LOC: C.ER 11:09
DX: K57.92 Diverticulitis of intestine, part unspecified, without perforation or abscess without bleeding (principal)
CPT/HCPCS: 80053; 81001; 83690; 85025; 87040; 87086; 96374; 99284; J2270

== ENCOUNTER 2017-06-21 14:42 | Inpatient (IN) | payer OTHER ==
[2017-06-21 14:42] VITALS: BMI 29.2
[2017-06-21] MEDS ORDERED: Iohexol 240 (50 ml) PO ONE (15:27)
--- NOTE | 2017-06-21 15:44 | C.PDOC ---
History Of Present Illness 52 y/o male c/o sudden onset of periumbilical abdominal pain that started today at work. Pain is constant and cramping. Patient had a similar episode last February , was admitted for 3 days, and was on antibiotics for a week for diverticulitis. Patient took no meds for pain. Denies nausea, vomiting, or diarrhea. No fever or chills. Time Seen by Provider: 06/21/17 15:22 Chief Complaint (Nursing): Abdominal Pain History Per: Patient History/Exam Limitations: no limitations Onset/Duration Of Symptoms: Hrs, Sudden Onset Current Symptoms Are (Timing): Still Present Severity: Mild Location Of Pain/Discomfort: Periumbilical Quality Of Discomfort: Cramping, Other (constant) Associated Symptoms: denies: Fever, Chills, Nausea, Vomiting, Diarrhea Alleviating Factors: denies: OTC Meds (Did not use) Recent travel outside of the [place]: No Additional History Per: Patient Past Medical History Reviewed: Historical Data, Nursing Documentation, Vital Signs Vital Signs: Last Vital Signs Temp 98.6 F 06/21/17 16:45 Pulse 89 06/21/17 18:54 Resp 18 06/21/17 18:54 BP 145/88 06/21/17 18:54 Pulse Ox 98 06/21/17 19:05 - Medical History PMH: Denies: HTN (PT DENIES), Hypercholesterolemia (PT DENIES) Family History: States: Unknown Family Hx - Social History Hx Alcohol Use: Yes Hx Substance Use: No - Immunization History Hx Tetanus Toxoid Vaccination: No Hx Influenza Vaccination: Yes Hx Pneumococcal Vaccination: No Review Of Systems Except As Marked, All Systems Reviewed And Found Negative. Constitutional: Negative for: Fever, Chills Gastrointestinal: Positive for: Abdominal Pain. Negative for: Nausea, Vomiting , Diarrhea Physical Exam - Physical Exam Appears: Non-toxic, Other (Uncomfortable) Skin: Warm, Dry Head: Atraumatic, Normacephalic Chest: Symmetrical Cardiovascular: Rhythm Regular, No Murmur Respiratory: Normal Breath Sounds, No Rales, No Rhonchi, No Wheezing Gastrointestinal/Abdominal: Bowel Sounds (Quiet bowel sounds), Soft, Tenderness (Diffuse tenderness at the periumbilical area), Distention, Guarding Neurological/Psych: Oriented x3 ED Course And Treatment - Laboratory Results Result Diagrams: 06/21/17 15:51 06/21/17 15:51 Lab Interpretation: Abnormal (Elevated WBC 18.2 with left shift, urine negative) O2 Sat by Pulse Oximetry: 98 (RA) Pulse Ox Interpretation: Normal - CT Scan/US Abdomen and Pelvis Other Rad Studies (CT/US): Read By Radiologist, Radiology Report Reviewed CT/US Interpretation: Accession No. : [id number]. Patient Name / ID : THANG BALLARD / [id number]. Exam Date : 06/21/2017 17:48:31 ( Approved ). Study Comment : Sex / Age : M / 52Y. Creator : Julia Burns. Dictator : Stacy Howell MD. Weighter : Wildlife Biologist : Stacy Howell MD. Approver2 : Report Date : 06/21/2017 17:59:24. My Comment : . PROCEDURE: CT Abdomen and Pelvis with oral and IV contrast. HISTORY: abd pain. COMPARISON: CT abdomen and pelvis performed 03/27/17. TECHNIQUE: Contiguous axial images of the abdomen and pelvis. Oral and IV contrast was administered. Coronal and Sagittal reformats generated and reviewed. Contrast dose: 100 mL Visipaque. Radiation dose: Total exam DLP = 542.36 mGy-cm. This CT exam was performed using one or more of the following dose reduction techniques: Automated exposure control, adjustment of the mA and/or kV according to patient size, and/or use of iterative reconstruction technique. FINDINGS: LOWER THORAX : No visible consolidation, pleural effusion, or pneumothorax. LIVER: Unremarkable. GALLBLADDER AND BILE DUCTS: Unremarkable. PANCREAS: Unremarkable. SPLEEN: Unremarkable. ADRENALS: 2.2 x 2.2 cm left adrenal gland heterogeneous mass, indeterminate. KIDNEYS AND URETERS: The kidneys enhance symmetrically. No hydronephrosis or obstructing renal calculus. BLADDER : The urinary bladder appears unremarkable. REPRODUCTIVE: The prostate gland measures approximately 3.8 x 4.2 cm. APPENDIX: The appendix appears within normal limits of caliber. BOWEL: The stomach is nondistended. Extensive inflammatory changes noted involving the rectosigmoid colon as well as adjacent small bowel in the lower pelvis. Tiny foci of air noted in this region not clearly within bowel loops, possibly related to micro perforation. Acute diverticulitis versus colitis (i.e. infectious, inflammatory, ischemic) considered. Bowel loops appear mildly distended in the region of inflammation without clear evidence of obstruction. Oral contrast is not yet within the colon. PERITONEUM: Small pelvic free fluid. Small pelvic fluid. No definite free air. LYMPH NODES: No bulky lymphadenopathy identified. VASCULATURE: No aortic aneurysm. BONES: No acute osseous abnormality is detected. OTHER FINDINGS: None. IMPRESSION: Extensive inflammatory changes noted involving the rectosigmoid colon as well as adjacent small bowel in the lower pelvis. Tiny foci of air noted in this region not clearly within bowel loops, possibly related to micro perforation. Acute diverticulitis versus colitis (i.e. infectious, inflammatory, ischemic) considered. 2.2 x 2.2 cm left adrenal gland heterogeneous mass, indeterminate. Findings discussed with Dr. Andrew on 06/21/17 at 6:13 p.m. Progress Note: Patient treated with pain medication, IV Zosyn and fluids in ED. Reevaluation Time: 19:04 Reassessment Condition: Unchanged - Physician Consult Information Time Consulting Physician Contacted: 19:05 Physician Contacted: August Jansen Outcome Of Conversation: Patient to be admitted for GI consultation and IV antibiotics. Medical Decision Making Medical Decision Making: Plans: * CT Abd/Pel w/ IV and PO * Blood labs * Omnipaque * Morphine * IV fluids * UA Disposition - Disposition Disposition: HOSPITALIZED Disposition Time: 20:19 Condition: SERIOUS - POA Present On Arrival: None - Clinical Impression Clinical Impression: Acute diverticulitis - Scribe Statement The provider has reviewed the documentation as recorded by the Scribe Cassidy he All medical record entries made by the Chelseaibmadison were at my direction and personally dictated by me. I have reviewed the chart and agree that the record accurately reflects my personal performance of the history, physical exam, medical decision making, and the department course for this patient. I have also personally directed, reviewed, and agree with the discharge instructions and disposition.
[2017-06-21] MEDS ORDERED: Iohexol 240 (50 ml) ONE (15:53)
[2017-06-21 15:54] LABS: BASO # 0.1 K/uL (0.0-0.2); BASO % 0.7 % (0.0-2.0); EOS # 0.2 K/uL (0.0-0.7); EOS % 0.9 % (0.0-4.0); HEMATOCRIT 41.6 % (35.0-51.0); LYMPH # 1.8 K/uL (1.0-4.3); LYMPH % 10.1 % (20.0-40.0); MEAN CELL VOLUME 90.3 fL (80.0-94.0); MEAN CORPUSCULAR HEMOGLOBIN 30.6 pg (27.0-31.0); MEAN CORPUSCULAR HGB CONC 33.9 g/dL (33.0-37.0); MEAN PLATELET VOLUME 7.2 fL (7.2-11.7); MONO # 1.3 K/uL (0.0-0.8); MONO % 7.2 % (0.0-10.0); NRBC % 0.1 % (0.0-2.0); WHITE BLOOD COUNT 18.2 K/uL (4.8-10.8)
[2017-06-21] MEDS ORDERED: Piperacillin/Tazobact 3.375 gm 100 ML IV STA (16:00)
[2017-06-21 16:07] LABS: CHLORIDE 101 mmol/L (98-107)
[2017-06-21 16:08] LABS: POTASSIUM 3.4 mmol/L (3.6-5.2); SODIUM 134 mmol/L (132-148)
[2017-06-21 16:10] LABS: ALB/GLOB RATIO 1.2 (1.0-2.1); AST/SGOT 26 U/L (17-59); BILIRUBIN,TOTAL 0.5 mg/dL (0.2-1.3); BLOOD UREA NITROGEN 14 mg/dL (9-20); CARBON DIOXIDE 22 mmol/L (22-30); GFR AFRICAN-AMERICAN > 60; TOTAL PROTEIN 7.9 g/dL (6.3-8.3)
[2017-06-21 16:11] LABS: ALKALINE PHOSPHATASE 63 U/L (38-126); ALT/SGPT 35 U/L (21-72); CALCIUM 9.5 mg/dl (8.6-10.4); GLUCOSE,RANDOM 97 mg/dL (75-110)
[2017-06-21 16:34] LABS: RBC URINE 2 /hpf (0-3); URINE BILIRUBIN NEGATIVE (NEGATIVE); URINE BLOOD 1+ (NEGATIVE); URINE COLOR Yellow (YELLOW); URINE GLUCOSE (UA) NORMAL (Normal); URINE KETONE NEGATIVE (NEGATIVE); URINE LEUKOCYTE ESTERASE NEG Leu/uL (Negative); URINE PROTEIN NEGATIVE (NEGATIVE); URINE UROBILINOGEN NORMAL mg/dL (0.2-1.0); WBC URINE < 1 /hpf (0-5)
[2017-06-21] MEDS ORDERED: Piperacill/Tazo 3.375gm in Dex 3.375 GM/50 ML BAG IVPB ONE (17:00)
[2017-06-21] MEDS ORDERED: Iodixanol 320 MG/ML 100 ML BOTTLE IV ONE (17:47)
--- NOTE | 2017-06-21 18:35 | CT ---
PROCEDURE: CT Abdomen and Pelvis with oral and IV contrast. HISTORY: abd pain COMPARISON: CT abdomen and pelvis performed 03/27/17 TECHNIQUE: Contiguous axial images of the abdomen and pelvis. Oral and IV contrast was administered. Coronal and Sagittal reformats generated and reviewed. Contrast dose: 100 mL Visipaque Radiation dose: Total exam DLP = 542.36 mGy-cm. This CT exam was performed using one or more of the following dose reduction techniques: Automated exposure control, adjustment of the mA and/or kV according to patient size, and/or use of iterative reconstruction technique. FINDINGS: LOWER THORAX: No visible consolidation, pleural effusion, or pneumothorax. LIVER: Unremarkable. GALLBLADDER AND BILE DUCTS: Unremarkable. PANCREAS: Unremarkable. SPLEEN: Unremarkable. ADRENALS: 2.2 x 2.2 cm left adrenal gland heterogeneous mass, indeterminate. KIDNEYS AND URETERS: The kidneys enhance symmetrically. No hydronephrosis or obstructing renal calculus. BLADDER: The urinary bladder appears unremarkable. REPRODUCTIVE: The prostate gland measures approximately 3.8 x 4.2 cm. APPENDIX: The appendix appears within normal limits of caliber. BOWEL: The stomach is nondistended. Extensive inflammatory changes noted involving the rectosigmoid colon as well as adjacent small bowel in the lower pelvis. Tiny foci of air noted in this region not clearly within bowel loops, possibly related to micro perforation. Acute diverticulitis versus colitis (i.e. infectious, inflammatory, ischemic) considered. Bowel loops appear mildly distended in the region of inflammation without clear evidence of obstruction. Oral contrast is not yet within the colon. PERITONEUM: Small pelvic free fluid. Small pelvic fluid. No definite free air. LYMPH NODES: No bulky lymphadenopathy identified. VASCULATURE: No aortic aneurysm. BONES: No acute osseous abnormality is detected. OTHER FINDINGS: None. IMPRESSION: Extensive inflammatory changes noted involving the rectosigmoid colon as well as adjacent small bowel in the lower pelvis. Tiny foci of air noted in this region not clearly within bowel loops, possibly related to micro perforation. Acute diverticulitis versus colitis (i.e. infectious, inflammatory, ischemic) considered. 2.2 x 2.2 cm left adrenal gland heterogeneous mass, indeterminate. Findings discussed with Dr. Andrew on 06/21/17 at 6:13 p.m.
[2017-06-21] MEDS ORDERED: Sodium Chloride 0.9% 1,000 ML IV ONE ×2 (19:05)
[2017-06-21] MEDS ORDERED: Sodium Chloride 0.9% 1,000 ML ONE (20:05)
[2017-06-21] MEDS ORDERED: Multivitamin (MVI) 10 ML, Thiamine 100 MG, Folic Acid 1 MG in Sodium Chloride 0.9% 1,00... IV ONE (21:37)
--- NOTE | 2017-06-21 21:46 | CP.PCM.HP ---
<Markel Paytonssemili Arriaza - Last Filed: 06/22/17 00:38> History of Present Illness - History of Present Illness History of Present Illness: CC: Stomach hurts HPI: 52 year old male with previous history of diverticulitis presents to the ED with abdominal pain that started at 11AM today when he was at work. Patient describes the pain as a "cramping" pain that is constant. Patient describes the pain as being located in the entire abdomen but is most severe in the left and right lower quadrants. Pain is rated a 10/10; pain medication (morphine) administered by ED brought the pain level to 8 out of 10 and when he moves around that makes the pain worse. Patient also complains of chills and pain on urination that started at 11AM as well. Patient denies fever, nausea, vomiting, diarrhea, chest pain, shortness of breath, syncope, hematachezia, and hematuria. PMD: none currently Past Medical History: Diverticulitis in February 2017 Past Surgical History: 2017 Elbow surgery, Left Rotator Cuff (2013), Right Rotator cuff (2008) Medications: Tylenol as needed Allergies: Hazelnuts Social History: Patient is and lives with . 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 Patient states he smoke 1/2 pack a day for 20 years. Patient states he drinks 2 beers, 3-4 times per week. Patient states he smokes marijuana once a week. Patient denied any other illicit drug use. Present on Admission - Present on Admission Any Indicators Present on Admission: No Review of Systems - Constitutional Constitutional: Chills, Weakness. absent: Fever, Headache, Night Sweats - EENT Eyes: absent: Blurred Vision, Change in Vision - Cardiovascular Cardiovascular: absent: Chest Pain, Dyspnea, Lightheadedness - Respiratory Respiratory: absent: Dyspnea - Gastrointestinal Gastrointestinal: absent: Constipation, Diarrhea, Hematemesis, Hematochezia, Nausea, Vomiting - Genitourinary Genitourinary: Dysuria. absent: Hematuria, Urinary Frequency, Urinary Hesitance , Urinary Urgency - Musculoskeletal Musculoskeletal: absent: Numbness, Tingling - Neurological Neurological: Weakness. absent: Dizziness, Numbness, Headaches, Syncope, Tingling - Endocrine Endocrine: absent: Fatigue, Palpitations Past Patient History - Infectious Disease Hx of Infectious Diseases: None - Past Social History Smoking Status: Light Smoker < 10 Cigarettes Daily - CARDIAC Hx Hypercholesterolemia: No (PT DENIES) Hx Hypertension: No (PT DENIES) - MUSCULOSKELETAL/RHEUMATOLOGICAL Hx Falls: Yes (Patient fell 2008 and 2013) - PSYCHIATRIC Hx Substance Use: No - SURGICAL HISTORY Hx Surgeries: Yes Hx Orthopedic Surgery: Yes (mat shoulder, LEFT ELBOW SURGERY) - ANESTHESIA Hx Anesthesia: Yes Hx Anesthesia Reactions: No Hx Malignant Hyperthermia: No Meds Allergies/Adverse Reactions: Allergies Allergy/AdvReac Type Severity Reaction Status Date / Time hazelnut Allergy SWELLING Verified 04/21/17 11:18 Physical Exam - Constitutional Appears: No Acute Distress - Head Exam Head Exam: ATRAUMATIC, NORMAL INSPECTION, NORMOCEPHALIC - Eye Exam Eye Exam: Conjunctival injection, EOMI, PERRL Pupil Exam: NORMAL ACCOMODATION - ENT Exam ENT Exam: Mucous Membranes Moist - Respiratory Exam Respiratory Exam: Wheezes, NORMAL BREATHING PATTERN. absent: Clear to Auscultation Bilateral, Rales, Rhonchi - Cardiovascular Exam Cardiovascular Exam: REGULAR RHYTHM, RRR, +S1, +S2. absent: Diastolic murmur, JVD, Systolic Murmur - GI/Abdominal Exam GI & Abdominal Exam: Distended, Guarding, Normal Bowel Sounds, Soft, Tenderness - Extremities Exam Extremities exam: Positive for: normal inspection, pedal pulses present. Negative for: joint swelling, pedal edema, tenderness - Neurological Exam Neurological exam: Alert, CN II-XII Intact, Oriented x3 - Expanded Neurological Exam Expanded Patient oriented to: person, place, time Sensory exam: Lower Extremity Light Touch: Normal, Upper Extremity Light Touch: Normal Neuro motor strength exam: Left Upper Extremity: 5, Right Upper Extremity: 5, Left Lower Extremity: 5, Right Lower Extremity: 5 Coma Scale Eye Opening: SPONTANEOUS Coma Scale Motor Response: OBEYS COMMANDS - Psychiatric Exam Psychiatric exam: Normal Affect, Normal Mood - Skin Skin Exam: Normal Color, Warm Results - Vital Signs Recent Vital Signs: Last Vital Signs Temp 98.6 F 06/21/17 16:45 Pulse 89 06/21/17 18:54 Resp 18 06/21/17 18:54 BP 145/88 06/21/17 18:54 Pulse Ox 98 06/21/17 20:20 - Labs Result Diagrams: 06/21/17 15:51 06/21/17 15:51 Labs: Laboratory Results - last 24 hr 06/21/17 06/21/17 06/21/17 15:51 15:51 15:57 WBC 18.2 H RBC 4.60 Hgb 14.1 Hct 41.6 MCV 90.3 MCH 30.6 MCHC 33.9 RDW 14.0 Plt Count 252 MPV 7.2 Neut % (Auto) 81.1 H Lymph % (Auto) 10.1 L Ada % (Auto) 7.2 Eos % (Auto) 0.9 Baso % (Auto) 0.7 Neut # 14.8 H Lymph # 1.8 Ada # 1.3 H Eos # 0.2 Baso # 0.1 Sodium 134 Potassium 3.4 L Chloride 101 Carbon Dioxide 22 Anion Gap 14 BUN 14 Creatinine 0.7 L Est GFR ( Amer) > 60 Est GFR (Non-Af Amer) > 60 Random Glucose 97 Calcium 9.5 Total Bilirubin 0.5 AST 26 ALT 35 Alkaline Phosphatase 63 Total Protein 7.9 Albumin 4.4 Globulin 3.6 Albumin/Globulin Ratio 1.2 Lipase 27 Urine Color Yellow Urine Clarity Clear Urine pH 5.0 Ur Specific [place] 1.026 Urine Protein Negative Urine Glucose (UA) Normal Urine Ketones Negative Urine Blood 1+ H Urine Nitrate Negative Urine Bilirubin Negative Urine Urobilinogen Normal Ur Leukocyte Esterase Neg Urine WBC (Auto) < 1 Urine RBC (Auto) 2 Ur Squamous Epith Cells < 1 Assessment & Plan - Assessment and Plan (Free Text) Assessment: 1.) Abdominal Pain possibly secondary to acute diverticulitis vs colitis - Surgery Consult: Dr. Michael --> help appreciated - Abdomen/Pelvis CT: Extensive inflammatory changes noted involving the rectosigmoid colon as well as adjacent small bowel in the lower pelvis. Tiny foci of air noted in this region not clearly within bowel loops, possibly related to micro perforation. Acute diverticulitis versus colitis (i.e. infectious, inflammatory, ischemic) considered. 2.2 x 2.2 cm left adrenal gland heterogeneous mass, indeterminate. - f/u Obstruction series to r/o Large Bowel Obstruction - NPO until further instruction - Pain medication: morphine 2mg q6 PRN - Normal Saline 100cc/hr 2.) Leukocytosis possibly due to acute diverticulitis vs colitis - Zosyn 3.375gm for possible infection - f/u blood culture - Monitor CBC 3.) Dysuria possibly secondary to urinary tract infection - Urinalysis: +1 blood, negative nitrate, negative Leukocyte esterase - f/u urine culture 4.) Hypokalemia - Replete Potassium - Monitor 5.) Tobacco use disorder - Nicotine Patch for hospital course - Discussed smoking cessation 6.) Alcohol use disorder, possible - f/u Alcohol serum level - N/S with multivitamins, B12, Folate - AST/ALT: 26/35 - Lipase: 27 7.) Marijuana use disorder - Urinary drug screen + for Cannabinoids 8.) DVT Prophylaxis -SCDs - Protonix -Anticoagulation contraindicated due to possible perforation vs possible surgery Case discussed with Dr. Justyna Payton, PGY-1 <August Jansen - Last Filed: 06/22/17 06:17> Results - Vital Signs Recent Vital Signs: Last Vital Signs Temp 98.6 F 06/21/17 16:45 Pulse 88 06/22/17 02:08 Resp 18 06/22/17 02:08 BP 126/84 06/22/17 02:08 Pulse Ox 96 06/22/17 02:08 - Labs Result Diagrams: 06/21/17 15:51 06/21/17 15:51 Labs: Laboratory Results - last 24 hr 06/21/17 06/21/17 06/21/17 15:51 15:51 15:57 WBC 18.2 H RBC 4.60 Hgb 14.1 Hct 41.6 MCV 90.3 MCH 30.6 MCHC 33.9 RDW 14.0 Plt Count 252 MPV 7.2 Neut % (Auto) 81.1 H Lymph % (Auto) 10.1 L Ada % (Auto) 7.2 Eos % (Auto) 0.9 Baso % (Auto) 0.7 Neut # 14.8 H Lymph # 1.8 Ada # 1.3 H Eos # 0.2 Baso # 0.1 PT INR APTT Sodium 134 Potassium 3.4 L Chloride 101 Carbon Dioxide 22 Anion Gap 14 BUN 14 Creatinine 0.7 L Est GFR ( Amer) > 60 Est GFR (Non-Af Amer) > 60 Random Glucose 97 Calcium 9.5 Total Bilirubin 0.5 AST 26 ALT 35 Alkaline Phosphatase 63 Total Protein 7.9 Albumin 4.4 Globulin 3.6 Albumin/Globulin Ratio 1.2 Lipase 27 Urine Color Yellow Urine Clarity Clear Urine pH 5.0 Ur Specific [place] 1.026 Urine Protein Negative Urine Glucose (UA) Normal Urine Ketones Negative Urine Blood 1+ H Urine Nitrate Negative Urine Bilirubin Negative Urine Urobilinogen Normal Ur Leukocyte Esterase Neg Urine WBC (Auto) < 1 Urine RBC (Auto) 2 Ur Squamous Epith Cells < 1 Urine Opiates Screen Urine Methadone Screen Ur Barbiturates Screen Ur Phencyclidine Scrn Ur Amphetamines Screen U Benzodiazepines Scrn U Oth Cocaine Metabols U Cannabinoids Screen Alcohol, Quantitative 06/21/17 06/22/17 06/22/17 22:26 01:54 01:54 WBC RBC Hgb Hct MCV MCH MCHC RDW Plt Count MPV Neut % (Auto) Lymph % (Auto) Ada % (Auto) Eos % (Auto) Baso % (Auto) Neut # Lymph # Ada # Eos # Baso # PT 11.2 INR 1.0 APTT 28 Sodium Potassium Chloride Carbon Dioxide Anion Gap BUN Creatinine Est GFR ( Amer) Est GFR (Non-Af Amer) Random Glucose Calcium Total Bilirubin AST ALT Alkaline Phosphatase Total Protein Albumin Globulin Albumin/Globulin Ratio Lipase Urine Color Urine Clarity Urine pH Ur Specific [place] Urine Protein Urine Glucose (UA) Urine Ketones Urine Blood Urine Nitrate Urine Bilirubin Urine Urobilinogen Ur Leukocyte Esterase Urine WBC (Auto) Urine RBC (Auto) Ur Squamous Epith Cells Urine Opiates Screen Positive Urine Methadone Screen Negative Ur Barbiturates Screen Negative Ur Phencyclidine Scrn Negative Ur Amphetamines Screen Negative U Benzodiazepines Scrn Negative U Oth Cocaine Metabols Negative U Cannabinoids Screen Positive Alcohol, Quantitative < 10 Assessment & Plan - Date & Time Date: 06/22/17 (I have seen and examined the patient. I agree with the findings and plan of care as documented by Dr. Payton. Patient with acute diverticulitis. Leukocytosis. Zosyn for now. Consult to surgery due to possible concern for micro perforations. Follow up official CT results. Symptomatic treatment. [facility] protocol with ativan for alcohol abuse. Monitor for acute changes.) Time: 06:15 Attending/Attestation - Attestation I have personally seen and examined this patient.: Yes I have fully participated in the care of the patient.: Yes I have reviewed all pertinent clinical information: Yes
[2017-06-22] MEDS ORDERED: Morphine 4 MG/ML VIAL IV ONE (02:39)
[2017-06-22] MEDS: Piperacill/Tazo 3.375gm in Dex 3.375 GM/50 ML BAG IVPB SCH ×4 (03:10→18:54)
[2017-06-22 06:15] LABS: BASO % 0.4 % (0.0-2.0); EOS # 0.2 K/uL (0.0-0.7); EOS % 1.8 % (0.0-4.0); HEMATOCRIT 37.5 % (35.0-51.0); LYMPH # 1.2 K/uL (1.0-4.3); LYMPH % 10.2 % (20.0-40.0); MEAN CELL VOLUME 90.2 fL (80.0-94.0); MEAN CORPUSCULAR HEMOGLOBIN 31.1 pg (27.0-31.0); MEAN CORPUSCULAR HGB CONC 34.4 g/dL (33.0-37.0); MEAN PLATELET VOLUME 7.2 fL (7.2-11.7); MONO # 1.3 K/uL (0.0-0.8); MONO % 11.4 % (0.0-10.0); RED CELL DISTRIBUTION WIDTH 13.8 % (11.5-14.5); WHITE BLOOD COUNT 11.3 K/uL (4.8-10.8)
--- NOTE | 2017-06-22 06:27 | CP.PCM.CON ---
History of Present Illness - History of Present Illness History of Present Illness: GENERAL SURGERY CONSULT NOTE FOR DR. STARKS 52yo M with PMHx of diverticulitis presents to the ED with abdominal pain that started yesterday at 11AM. The pain is in the bilateral lower abdomen but mostly on the right side. He describes the pain as "cramping". He denies nausea or vomiting, fevers, CP, SOB. His last BM was yesterday morning and it was normal. After his previous diverticulitis in February, he was told to get a colonoscopy but he states that he "hadn't gotten around to it yet". PMHx: Diverticulitis in February 2017 Past Surgical History: Elbow surgery, Left Rotator Cuff, Right Rotator cuff Allergies: Hazelnuts Social History: Smokes 1/2 pack a day for 20 years. Drinks 2 beers, 3-4 times per week. Smokes marijuana once a week. Patient denied any other illicit drug use. Review of Systems - Review of Systems All systems: reviewed and no additional remarkable complaints except (as per HPI ) Past Patient History - Infectious Disease Hx of Infectious Diseases: None - Past Social History Smoking Status: Light Smoker < 10 Cigarettes Daily - CARDIAC Hx Hypercholesterolemia: No (PT DENIES) Hx Hypertension: No (PT DENIES) - MUSCULOSKELETAL/RHEUMATOLOGICAL Hx Falls: Yes (Patient fell 2008 and 2013) - PSYCHIATRIC Hx Substance Use: No - SURGICAL HISTORY Hx Surgeries: Yes Hx Orthopedic Surgery: Yes (mat shoulder, LEFT ELBOW SURGERY) - ANESTHESIA Hx Anesthesia: Yes Hx Anesthesia Reactions: No Hx Malignant Hyperthermia: No Meds Allergies/Adverse Reactions: Allergies Allergy/AdvReac Type Severity Reaction Status Date / Time hazelnut Allergy SWELLING Verified 04/21/17 11:18 - Medications Medications: Current Medications Multivitamins/Vitamin C 10 ml/Thiamine HCl 100 mg/ Folic Acid 1 mg/ Sodium Chloride 1,011.2 mls @ 75 mls/hr IV .[id number] ONE Stop: 06/22/17 11:05 Last Admin: 06/21/17 22:13 Dose: 75 mls/hr Piperacillin Sod/Tazobactam Sod (Zosyn 3.375 Gm Iv Premix) 3.375 gm in 50 mls @ 100 mls/hr IVPB Q6H [facility] Last Admin: 06/22/17 03:10 Dose: 100 mls/hr Lorazepam (Ativan) 2 mg PO Q8H PRN; Taper PRN Reason: Symptoms of alcohol withdrawl Stop: 06/26/17 21:33 Morphine Sulfate (Morphine) 1 mg IV Q6 PRN PRN Reason: Pain, moderate (4-7) Last Admin: 06/21/17 22:52 Dose: 1 mg Nicotine (Nicoderm Cq) 1 patch TD DAILY [facility] Ondansetron HCl (Zofran Inj) 4 mg IVP Q4 PRN PRN Reason: Nausea/Vomiting Pantoprazole Sodium (Protonix Inj) 40 mg IVP DAILY [facility] Physical Exam - Constitutional Appears: Non-toxic, No Acute Distress - Head Exam Head Exam: ATRAUMATIC, NORMAL INSPECTION - Eye Exam Eye Exam: EOMI, Normal appearance - Respiratory Exam Respiratory Exam: NORMAL BREATHING PATTERN. absent: Respiratory Distress - Cardiovascular Exam Cardiovascular Exam: +S1, +S2 - GI/Abdominal Exam GI & Abdominal Exam: Soft, Tenderness (mild tenderness in RLQ, LLQ, RUQ). absent: Distended, Firm, Guarding, Rebound, Rigid - Neurological Exam Neurological exam: Alert, CN II-XII Intact, Oriented x3 - Psychiatric Exam Psychiatric exam: Normal Affect, Normal Mood - Skin Skin Exam: Dry, Normal Color, Warm Results - Vital Signs Recent Vital Signs: Last Vital Signs Temp 98.6 F 06/21/17 16:45 Pulse 78 06/22/17 06:24 Resp 18 06/22/17 06:24 BP 125/86 06/22/17 06:24 Pulse Ox 96 06/22/17 06:24 - Labs Result Diagrams: 06/22/17 06:11 06/22/17 06:11 Labs: Laboratory Results - last 24 hr 06/21/17 06/21/17 06/21/17 15:51 15:51 15:57 WBC 18.2 H RBC 4.60 Hgb 14.1 Hct 41.6 MCV 90.3 MCH 30.6 MCHC 33.9 RDW 14.0 Plt Count 252 MPV 7.2 Neut % (Auto) 81.1 H Lymph % (Auto) 10.1 L Braxton % (Auto) 7.2 Eos % (Auto) 0.9 Baso % (Auto) 0.7 Neut # 14.8 H Lymph # 1.8 Braxton # 1.3 H Eos # 0.2 Baso # 0.1 PT INR APTT Sodium 134 Potassium 3.4 L Chloride 101 Carbon Dioxide 22 Anion Gap 14 BUN 14 Creatinine 0.7 L Est GFR ( Amer) > 60 Est GFR (Non-Af Amer) > 60 Random Glucose 97 Calcium 9.5 Total Bilirubin 0.5 AST 26 ALT 35 Alkaline Phosphatase 63 Total Protein 7.9 Albumin 4.4 Globulin 3.6 Albumin/Globulin Ratio 1.2 Lipase 27 Urine Color Yellow Urine Clarity Clear Urine pH 5.0 Ur Specific Horn[place] 1.026 Urine Protein Negative Urine Glucose (UA) Normal Urine Ketones Negative Urine Blood 1+ H Urine Nitrate Negative Urine Bilirubin Negative Urine Urobilinogen Normal Ur Leukocyte Esterase Neg Urine WBC (Auto) < 1 Urine RBC (Auto) 2 Ur Squamous Epith Cells < 1 Urine Opiates Screen Urine Methadone Screen Ur Barbiturates Screen Ur Phencyclidine Scrn Ur Amphetamines Screen U Benzodiazepines Scrn U Oth Cocaine Metabols U Cannabinoids Screen Alcohol, Quantitative 06/21/17 06/22/17 06/22/17 22:26 01:54 01:54 WBC RBC Hgb Hct MCV MCH MCHC RDW Plt Count MPV Neut % (Auto) Lymph % (Auto) Braxton % (Auto) Eos % (Auto) Baso % (Auto) Neut # Lymph # Braxton # Eos # Baso # PT 11.2 INR 1.0 APTT 28 Sodium Potassium Chloride Carbon Dioxide Anion Gap BUN Creatinine Est GFR ( Amer) Est GFR (Non-Af Amer) Random Glucose Calcium Total Bilirubin AST ALT Alkaline Phosphatase Total Protein Albumin Globulin Albumin/Globulin Ratio Lipase Urine Color Urine Clarity Urine pH Ur Specific [place] Urine Protein Urine Glucose (UA) Urine Ketones Urine Blood Urine Nitrate Urine Bilirubin Urine Urobilinogen Ur Leukocyte Esterase Urine WBC (Auto) Urine RBC (Auto) Ur Squamous Epith Cells Urine Opiates Screen Positive Urine Methadone Screen Negative Ur Barbiturates Screen Negative Ur Phencyclidine Scrn Negative Ur Amphetamines Screen Negative U Benzodiazepines Scrn Negative U Oth Cocaine Metabols Negative U Cannabinoids Screen Positive Alcohol, Quantitative < 10 06/22/17 06:11 WBC 11.3 H RBC 4.16 L Hgb 12.9 Hct 37.5 MCV 90.2 MCH 31.1 H MCHC 34.4 RDW 13.8 Plt Count 214 MPV 7.2 Neut % (Auto) 76.2 H Lymph % (Auto) 10.2 L Braxton % (Auto) 11.4 H Eos % (Auto) 1.8 Baso % (Auto) 0.4 Neut # 8.6 H Lymph # 1.2 Braxton # 1.3 H Eos # 0.2 Baso # 0.0 PT INR APTT Sodium Potassium Chloride Carbon Dioxide Anion Gap BUN Creatinine Est GFR ( Amer) Est GFR (Non-Af Amer) Random Glucose Calcium Total Bilirubin AST ALT Alkaline Phosphatase Total Protein Albumin Globulin Albumin/Globulin Ratio Lipase Urine Color Urine Clarity Urine pH Ur Specific [place] Urine Protein Urine Glucose (UA) Urine Ketones Urine Blood Urine Nitrate Urine Bilirubin Urine Urobilinogen Ur Leukocyte Esterase Urine WBC (Auto) Urine RBC (Auto) Ur Squamous Epith Cells Urine Opiates Screen Urine Methadone Screen Ur Barbiturates Screen Ur Phencyclidine Scrn Ur Amphetamines Screen U Benzodiazepines Scrn U Oth Cocaine Metabols U Cannabinoids Screen Alcohol, Quantitative Assessment & Plan - Assessment and Plan (Free Text) Assessment: 52yo M with PMHx of diverticulitis presents with abdominal pain and was found to have diverticulitis vs colitis with possible microperf - Afebrile, VSS - Leukocytosis WBC 11.3 (decreased from 18.2 yesterday) - CT: Extensive inflammatory changes involving rectosigmoid colon as well as adjacent small bowel in lower pelvis. Tiny foci of air noted in this region not clearly within bowel loops, possibly related to micro perforation. Acute diverticulitis versus colitis (i.e. infectious, inflammatory, ischemic) considered. - NPO, bowel rest - IV fluids - IV Antibiotics - Serial abdominal exams - Will discuss plan with Dr. Fernanda Loving PGY-3
[2017-06-22 06:34] LABS: CHLORIDE 100 mmol/L (98-107); POTASSIUM 3.6 mmol/L (3.6-5.2); SODIUM 134 mmol/L (132-148)
[2017-06-22 06:36] LABS: BILIRUBIN,TOTAL 1.1 mg/dL (0.2-1.3); GFR AFRICAN-AMERICAN > 60
[2017-06-22 06:37] LABS: ALB/GLOB RATIO 1.2 (1.0-2.1); ALKALINE PHOSPHATASE 46 U/L (38-126); ALT/SGPT 28 U/L (21-72); AST/SGOT 19 U/L (17-59); BLOOD UREA NITROGEN 8 mg/dL (9-20); CALCIUM 8.9 mg/dl (8.6-10.4); CARBON DIOXIDE 24 mmol/L (22-30); GLUCOSE,RANDOM 96 mg/dL (75-110); PHOSPHOROUS 3.2 mg/dL (2.5-4.5); TOTAL PROTEIN 7.1 g/dL (6.3-8.3)
[2017-06-22 06:38] LABS: MAGNESIUM 1.9 mg/dL (1.6-2.3)
--- NOTE | 2017-06-22 09:02 | RAD ---
PROCEDURE: Radiographs of the chest and abdomen (obstructive series) HISTORY: r/o obstruction COMPARISON: No prior. TECHNIQUE: AP radiograph of the chest, with upright and supine radiographs of the abdomen. FINDINGS: CHEST: Lungs: Clear. Cardiovascular: Normal size heart. No pulmonary vascular congestion. Pleura: No pleural fluid. No pneumothorax. Other findings: None. ABDOMEN AND PELVIS: Bowel: CT administered contrast throughout nondistended small bowel loops remarkable appearing within the inferior abdomen. No colon contrast. No dilated colonic loops. No evidence of mechanical obstruction. Free air: None. Bones: Unremarkable. Other findings: CT administered IV contrast opacifying intrarenal nondilate collecting system and portions of the ureters -not grossly dilated IMPRESSION: . No evidence of mechanical bowel obstruction.
--- NOTE | 2017-06-22 14:50 | CP.PCM.PN ---
<Barbara Palmer - Last Filed: 06/22/17 15:38> Subjective - Date & Time of Evaluation Date of Evaluation: 06/22/17 Time of Evaluation: 07:45 - Subjective Subjective: Medicine note for Dr. Foster Patient seen and examined at beside. Patient resting comfortably in bed with no new complaints at this time. Patient says he is still having some lower abdominal pain but otherwise is feeling better. Patient received pain medication prior to my arrival. Patient denies fever, chills, nausea, vomiting, Diarrhea, constipation, leg pain, and leg swelling. Objective - Vital Signs/Intake and Output Vital Signs (last 24 hours): Temp Pulse Resp BP Pulse Ox 98.1 F 79 20 130/75 94 L 06/22/17 08:35 06/22/17 08:35 06/22/17 08:35 06/22/17 08:35 06/22/17 08:35 - Medications Medications: Current Medications Piperacillin Sod/Tazobactam Sod (Zosyn 3.375 Gm Iv Premix) 3.375 gm in 50 mls @ 100 mls/hr IVPB Q6H [facility] Last Admin: 06/22/17 14:32 Dose: 100 mls/hr Lorazepam (Ativan) 2 mg PO Q8H PRN; Taper PRN Reason: Symptoms of alcohol withdrawl Stop: 06/26/17 21:33 Morphine Sulfate (Morphine) 2 mg IV Q4 PRN PRN Reason: Pain, moderate (4-7) Last Admin: 06/22/17 11:49 Dose: 2 mg Nicotine (Nicoderm Cq) 1 patch TD DAILY [facility] Ondansetron HCl (Zofran Inj) 4 mg IVP Q4 PRN PRN Reason: Nausea/Vomiting Pantoprazole Sodium (Protonix Inj) 40 mg IVP DAILY [facility] Last Admin: 06/22/17 11:40 Dose: 40 mg - Labs Labs: 06/22/17 06:11 06/22/17 06:11 PT 11.2 SECONDS (9.7-12.2) 06/22/17 01:54 INR 1.0 06/22/17 01:54 APTT 28 SECONDS (21-34) 06/22/17 01:54 - Constitutional Appears: Non-toxic, No Acute Distress - Head Exam Head Exam: NORMAL INSPECTION - Eye Exam Eye Exam: EOMI - ENT Exam ENT Exam: Mucous Membranes Moist - Respiratory Exam Respiratory Exam: Wheezes (b/l ), NORMAL BREATHING PATTERN. absent: Accessory Muscle Use, Rales, Rhonchi, Respiratory Distress - Cardiovascular Exam Cardiovascular Exam: REGULAR RHYTHM, +S1, +S2. absent: Bradycardia, Tachycardia , Murmur - GI/Abdominal Exam GI & Abdominal Exam: Distended, Guarding (voluntary ), Soft, Tenderness (LLQ and RLQ ), Normal Bowel Sounds - Extremities Exam Extremities Exam: Normal Inspection. absent: Calf Tenderness, Pedal Edema - Neurological Exam Neurological Exam: Alert, Awake - Psychiatric Exam Psychiatric exam: Normal Affect, Normal Mood - Skin Skin Exam: Dry, Intact, Normal Color, Warm Assessment and Plan - Assessment and Plan (Free Text) Plan: 1.) Abdominal Pain possibly secondary to acute diverticulitis vs colitis - Surgery Consult (Dr. Michael) - help appreciated - GI consulted (Dr. Gaytan) - help appreciated - Abdomen/Pelvis CT: Extensive inflammatory changes noted involving the rectosigmoid colon as well as adjacent small bowel in the lower pelvis. Tiny foci of air noted in this region not clearly within bowel loops, possibly related to micro perforation. Acute diverticulitis versus colitis (i.e. infectious, inflammatory, ischemic) considered. 2.2 x 2.2 cm left adrenal gland heterogeneous mass, indeterminate. - Obstruction series: no evidence of mechanical bowel obstruction - NPO until further instruction - Pain medication: morphine 2mg q6 PRN - Normal Saline 100cc/hr 2.) Leukocytosis possibly due to acute diverticulitis vs colitis - Zosyn 3.375gm for possible infection - f/u blood culture - Monitor CBC 3.) Dysuria possibly secondary to urinary tract infection - Urinalysis: +1 blood, negative nitrate, negative Leukocyte esterase - f/u urine culture 4.) Hypokalemia - Replete Potassium - Monitor 5.) Tobacco use disorder - Nicotine Patch for hospital course - Discussed smoking cessation 6.) Alcohol use disorder, possible - Alcohol serum level <10 - N/S with multivitamins, B12, Folate - AST/ALT: 26/35 - Lipase: 27 7.) Marijuana use disorder - Urinary drug screen + for Cannabinoids 8.) DVT Prophylaxis -SCDs - Protonix -Anticoagulation contraindicated due to possible perforation vs possible surgery Case discussed with Dr. Cristian Palmer, PGY1 <[email or web address] - Last Filed: 07/01/17 17:50> Objective - Vital Signs/Intake and Output Vital Signs (last 24 hours): Temp Pulse Resp BP Pulse Ox 98 F 76 20 121/76 96 06/22/17 15:58 06/22/17 15:58 06/22/17 15:58 06/22/17 15:58 06/22/17 15:58 Intake and Output: 06/22/17 06/23/17 18:59 06:59 Intake Total 600 Output Total 400 Balance 200 - Medications Medications: Current Medications Piperacillin Sod/Tazobactam Sod (Zosyn 3.375 Gm Iv Premix) 3.375 gm in 50 mls @ 100 mls/hr IVPB Q6H [facility] Last Admin: 06/22/17 18:54 Dose: 100 mls/hr Lorazepam (Ativan) 2 mg PO Q8H PRN; Taper PRN Reason: Symptoms of alcohol withdrawl Stop: 06/26/17 21:33 Morphine Sulfate (Morphine) 2 mg IV Q4 PRN PRN Reason: Pain, moderate (4-7) Last Admin: 06/22/17 17:21 Dose: 2 mg Nicotine (Nicoderm Cq) 1 patch TD DAILY [facility] Ondansetron HCl (Zofran Inj) 4 mg IVP Q4 PRN PRN Reason: Nausea/Vomiting Pantoprazole Sodium (Protonix Inj) 40 mg IVP DAILY [facility] Last Admin: 06/22/17 11:40 Dose: 40 mg - Labs Labs: 06/22/17 06:11 06/22/17 06:11 PT 11.2 SECONDS (9.7-12.2) 06/22/17 01:54 INR 1.0 06/22/17 01:54 APTT 28 SECONDS (21-34) 06/22/17 01:54 Attending/Attestation - Attestation I have personally seen and examined this patient.: Yes I have fully participated in the care of the patient.: Yes I have reviewed all pertinent clinical information, including history, physical exam and plan: Yes Notes (Text): Patient was seen and examined.Discussed with the resident I agree with the residents documentation of the assessment and plan
--- NOTE | 2017-06-22 19:30 | CP.PCM.CON ---
History of Present Illness - History of Present Illness History of Present Illness: Asked at 17:00 today to see pt for GI service consult for diverticulitis. Pt had diverticulitis 03/13. Now sudden abdom pain- LLQ- came to ER.. Pain was constant and severe. Sl fever. is present. Chr constipation- takes colace. Had peanuts recently. Review of Systems - Constitutional Constitutional: Fatigue, Fever. absent: Weight Gain, Weight Loss - Cardiovascular Cardiovascular: absent: Chest Pain, Dyspnea - Respiratory Respiratory: absent: Hemoptysis, Wheezing - Gastrointestinal Gastrointestinal: Abdominal Pain, Constipation. absent: Coffee Ground Emesis, Diarrhea, Hematemesis, Hematochezia, Loose Stools, Melena, Vomiting - Genitourinary Genitourinary: absent: Hematuria - Musculoskeletal Musculoskeletal: absent: Muscle Cramps, Myalgias - Integumentary Integumentary: absent: Erythema, Pruritus, Rash, Jaundice - Neurological Neurological: absent: Convulsions Past Patient History - Infectious Disease Hx of Infectious Diseases: None - Past Medical History & Family History Past Medical History?: Yes - Past Social History Smoking Status: Light Smoker < 10 Cigarettes Daily - CARDIAC Hx Hypercholesterolemia: No (PT DENIES) Hx Hypertension: No (PT DENIES) - PULMONARY Hx Respiratory Disorders: No - NEUROLOGICAL Hx Neurological Disorder: No - HEENT Hx HEENT Problems: No - RENAL Hx Chronic Kidney Disease: No - ENDOCRINE/METABOLIC Hx Endocrine Disorders: No - HEMATOLOGICAL/ONCOLOGICAL Hx Blood Disorders: No - INTEGUMENTARY Hx Dermatological Problems: No - MUSCULOSKELETAL/RHEUMATOLOGICAL Hx Falls: No - GASTROINTESTINAL Hx Gastrointestinal Disorders: No - GENITOURINARY/GYNECOLOGICAL Hx Genitourinary Disorders: No - PSYCHIATRIC Hx Substance Use: No - SURGICAL HISTORY Hx Surgeries: Yes (cuff rotator sx) Hx Orthopedic Surgery: Yes (mat shoulder, LEFT ELBOW SURGERY) - ANESTHESIA Hx Anesthesia: Yes Hx Anesthesia Reactions: No Hx Malignant Hyperthermia: No Meds Allergies/Adverse Reactions: Allergies Allergy/AdvReac Type Severity Reaction Status Date / Time hazelnut Allergy SWELLING Verified 04/21/17 11:18 - Medications Medications: Current Medications Piperacillin Sod/Tazobactam Sod (Zosyn 3.375 Gm Iv Premix) 3.375 gm in 50 mls @ 100 mls/hr IVPB Q6H [facility] Last Admin: 06/22/17 18:54 Dose: 100 mls/hr Lorazepam (Ativan) 2 mg PO Q8H PRN; Taper PRN Reason: Symptoms of alcohol withdrawl Stop: 06/26/17 21:33 Morphine Sulfate (Morphine) 2 mg IV Q4 PRN PRN Reason: Pain, moderate (4-7) Last Admin: 06/22/17 17:21 Dose: 2 mg Nicotine (Nicoderm Cq) 1 patch TD DAILY [facility] Ondansetron HCl (Zofran Inj) 4 mg IVP Q4 PRN PRN Reason: Nausea/Vomiting Pantoprazole Sodium (Protonix Inj) 40 mg IVP DAILY [facility] Last Admin: 06/22/17 11:40 Dose: 40 mg Physical Exam - Constitutional Appears: Non-toxic - Respiratory Exam Respiratory Exam: Clear to Auscultation Bilateral - Cardiovascular Exam Cardiovascular Exam: RRR - GI/Abdominal Exam GI & Abdominal Exam: Normal Bowel Sounds, Soft, Tenderness. absent: Distended, Guarding, Mass, Rebound Additional comments: Mild LLQ tenderness. - Extremities Exam Extremities exam: Positive for: normal inspection. Negative for: pedal edema - Neurological Exam Neurological exam: Alert, Oriented x3 - Psychiatric Exam Psychiatric exam: Normal Affect Results - Vital Signs Recent Vital Signs: Last Vital Signs Temp 98 F 06/22/17 15:58 Pulse 76 06/22/17 15:58 Resp 20 06/22/17 15:58 BP 121/76 06/22/17 15:58 Pulse Ox 96 06/22/17 15:58 - Labs Result Diagrams: 06/22/17 06:11 06/22/17 06:11 Labs: Laboratory Results - last 24 hr 06/21/17 06/22/17 06/22/17 22:26 01:54 01:54 WBC RBC Hgb Hct MCV MCH MCHC RDW Plt Count MPV Neut % (Auto) Lymph % (Auto) [place]inger % (Auto) Eos % (Auto) Baso % (Auto) Neut # Lymph # Grainger # Eos # Baso # PT 11.2 INR 1.0 APTT 28 Sodium Potassium Chloride Carbon Dioxide Anion Gap BUN Creatinine Est GFR ( Amer) Est GFR (Non-Af Amer) Random Glucose Calcium Phosphorus Magnesium Total Bilirubin AST ALT Alkaline Phosphatase Total Protein Albumin Globulin Albumin/Globulin Ratio Urine Opiates Screen Positive Urine Methadone Screen Negative Ur Barbiturates Screen Negative Ur Phencyclidine Scrn Negative Ur Amphetamines Screen Negative U Benzodiazepines Scrn Negative U Oth Cocaine Metabols Negative U Cannabinoids Screen Positive Alcohol, Quantitative < 10 06/22/17 06/22/17 06:11 06:11 WBC 11.3 H RBC 4.16 L Hgb 12.9 Hct 37.5 MCV 90.2 MCH 31.1 H MCHC 34.4 RDW 13.8 Plt Count 214 MPV 7.2 Neut % (Auto) 76.2 H Lymph % (Auto) 10.2 L Grainger % (Auto) 11.4 H Eos % (Auto) 1.8 Baso % (Auto) 0.4 Neut # 8.6 H Lymph # 1.2 Grainger # 1.3 H Eos # 0.2 Baso # 0.0 PT INR APTT Sodium 134 Potassium 3.6 Chloride 100 Carbon Dioxide 24 Anion Gap 13 BUN 8 L Creatinine 0.7 L Est GFR ( Amer) > 60 Est GFR (Non-Af Amer) > 60 Random Glucose 96 Calcium 8.9 Phosphorus 3.2 Magnesium 1.9 Total Bilirubin 1.1 AST 19 ALT 28 Alkaline Phosphatase 46 Total Protein 7.1 Albumin 3.8 Globulin 3.3 Albumin/Globulin Ratio 1.2 Urine Opiates Screen Urine Methadone Screen Ur Barbiturates Screen Ur Phencyclidine Scrn Ur Amphetamines Screen U Benzodiazepines Scrn U Oth Cocaine Metabols U Cannabinoids Screen Alcohol, Quantitative Assessment & Plan (1) Abdominal pain Assessment and Plan: Diverticulitis Status: Acute (2) Acute diverticulitis Assessment and Plan: CT- with micro- perforation. WBC and abdom pain are improving on IV antibiotics. I discussed with patient that he will need colonoscopy in 1 month. Status: Acute (3) Constipation Status: Acute
--- NOTE | 2017-06-22 23:15 | CARD ---
APPROVED REPORT EKG Measurement Heart [id number] <Conclusion> Normal sinus rhythm Left axis deviation T wave abnormality, consider inferior ischemia Abnormal ECG
[2017-06-23] MEDS: Piperacill/Tazo 3.375gm in Dex 3.375 GM/50 ML BAG IVPB SCH ×4 (02:30→19:40)
[2017-06-23 06:51] LABS: CHLORIDE 97 mmol/L (98-107); POTASSIUM 3.6 mmol/L (3.6-5.2); SODIUM 140 mmol/L (132-148)
[2017-06-23 06:53] LABS: BILIRUBIN,TOTAL 0.9 mg/dL (0.2-1.3); GFR AFRICAN-AMERICAN > 60
[2017-06-23 06:54] LABS: ALB/GLOB RATIO 1.1 (1.0-2.1); ALKALINE PHOSPHATASE 48 U/L (38-126); ALT/SGPT 33 U/L (21-72); AST/SGOT 27 U/L (17-59); BLOOD UREA NITROGEN 6 mg/dL (9-20); CARBON DIOXIDE 27 mmol/L (22-30); GLUCOSE,RANDOM 79 mg/dL (75-110); PHOSPHOROUS 3.5 mg/dL (2.5-4.5); TOTAL PROTEIN 7.9 g/dL (6.3-8.3)
[2017-06-23 06:55] LABS: CALCIUM 9.4 mg/dl (8.6-10.4); MAGNESIUM 2.2 mg/dL (1.6-2.3)
[2017-06-23 07:16] LABS: BASO % 0.4 % (0.0-2.0); EOS # 0.2 K/uL (0.0-0.7); HEMATOCRIT 40.1 % (35.0-51.0); LYMPH # 1.3 K/uL (1.0-4.3); LYMPH % 18.1 % (20.0-40.0); MEAN CELL VOLUME 90.7 fL (80.0-94.0); MEAN CORPUSCULAR HGB CONC 34.2 g/dL (33.0-37.0); MEAN PLATELET VOLUME 7.5 fL (7.2-11.7); MONO # 0.8 K/uL (0.0-0.8); RED CELL DISTRIBUTION WIDTH 13.6 % (11.5-14.5); WHITE BLOOD COUNT 7.3 K/uL (4.8-10.8)
--- NOTE | 2017-06-23 08:48 | CP.PCM.PN ---
Subjective - Date & Time of Evaluation Date of Evaluation: 06/23/17 Time of Evaluation: 07:00 - Subjective Subjective: GENERAL SURGERY PROGRESS NOTE FOR DR. STARKS Patient seen and examined at bedside. He states that his pain is better. He denies nausea or vomiting. He had a small BM. Objective - Vital Signs/Intake and Output Vital Signs (last 24 hours): Temp Pulse Resp BP Pulse Ox 98.1 F 76 20 125/78 94 L 06/23/17 08:01 06/23/17 08:01 06/23/17 08:01 06/23/17 08:01 06/23/17 08:01 - Medications Medications: Current Medications Piperacillin Sod/Tazobactam Sod (Zosyn 3.375 Gm Iv Premix) 3.375 gm in 50 mls @ 100 mls/hr IVPB Q6H [facility] Last Admin: 06/23/17 02:30 Dose: 100 mls/hr Lorazepam (Ativan) 1 mg PO Q6H PRN; Taper PRN Reason: Symptoms of alcohol withdrawl Stop: 06/26/17 21:33 Morphine Sulfate (Morphine) 2 mg IV Q4 PRN PRN Reason: Pain, moderate (4-7) Last Admin: 06/23/17 06:18 Dose: 2 mg Nicotine (Nicoderm Cq) 1 patch TD DAILY [facility] Last Admin: 06/22/17 20:22 Dose: 1 patch Ondansetron HCl (Zofran Inj) 4 mg IVP Q4 PRN PRN Reason: Nausea/Vomiting Pantoprazole Sodium (Protonix Inj) 40 mg IVP DAILY [facility] Last Admin: 06/22/17 11:40 Dose: 40 mg - Labs Labs: 06/23/17 06:35 06/23/17 06:35 PT 11.2 SECONDS (9.7-12.2) 06/22/17 01:54 INR 1.0 06/22/17 01:54 APTT 28 SECONDS (21-34) 06/22/17 01:54 - Constitutional Appears: Well, Non-toxic, No Acute Distress - Head Exam Head Exam: ATRAUMATIC, NORMAL INSPECTION - Respiratory Exam Respiratory Exam: NORMAL BREATHING PATTERN. absent: Respiratory Distress - Cardiovascular Exam Cardiovascular Exam: +S1, +S2 - GI/Abdominal Exam GI & Abdominal Exam: Soft, Tenderness (mild tenderness in LLQ). absent: Distended, Firm, Guarding, Rigid, Rebound - Neurological Exam Neurological Exam: Alert, Awake, Oriented x3 - Psychiatric Exam Psychiatric exam: Normal Affect, Normal Mood - Skin Skin Exam: Dry, Normal Color, Warm Assessment and Plan - Assessment and Plan (Free Text) Assessment: 52yo M with PMHx of diverticulitis presents with abdominal pain and was found to have diverticulitis vs colitis with possible microperf - Afebrile, VSS - Leukocytosis resolved - CT from 06/21: Extensive inflammatory changes involving rectosigmoid colon as well as adjacent small bowel in lower pelvis. Tiny foci of air noted in this region not clearly within bowel loops, possibly related to micro perforation. Acute diverticulitis versus colitis (i.e. infectious, inflammatory, ischemic) considered. - Will advance to Clear liquid diet for lunch - IV fluids - IV Antibiotics - Serial abdominal exams - Before discharge home, will need repeat CT - Per GI: needs colonoscopy in 1 month - Discussed plan with Dr. Fernanda Loving PGY-3
--- NOTE | 2017-06-23 13:29 | CP.PCM.PN ---
Subjective - Date & Time of Evaluation Date of Evaluation: 06/23/17 Time of Evaluation: 13:27 - Subjective Subjective: GI service follow up: No abdominal pain. Tolerating diet. Had BM. Objective - Vital Signs/Intake and Output Vital Signs (last 24 hours): Temp Pulse Resp BP Pulse Ox 98.1 F 76 20 125/78 94 L 06/23/17 08:01 06/23/17 08:01 06/23/17 08:01 06/23/17 08:01 06/23/17 08:01 - Medications Medications: Current Medications Piperacillin Sod/Tazobactam Sod (Zosyn 3.375 Gm Iv Premix) 3.375 gm in 50 mls @ 100 mls/hr IVPB Q6H [facility] Last Admin: 06/23/17 09:56 Dose: 100 mls/hr Lorazepam (Ativan) 1 mg PO Q6H PRN; Taper PRN Reason: Symptoms of alcohol withdrawl Stop: 06/26/17 21:33 Morphine Sulfate (Morphine) 2 mg IV Q4 PRN PRN Reason: Pain, moderate (4-7) Last Admin: 06/23/17 12:05 Dose: 2 mg Nicotine (Nicoderm Cq) 1 patch TD DAILY@1999 [facility] Ondansetron HCl (Zofran Inj) 4 mg IVP Q4 PRN PRN Reason: Nausea/Vomiting Pantoprazole Sodium (Protonix Inj) 40 mg IVP DAILY [facility] Last Admin: 06/23/17 09:57 Dose: 40 mg - Labs Labs: 06/23/17 06:35 06/23/17 06:35 PT 11.2 SECONDS (9.7-12.2) 06/22/17 01:54 INR 1.0 06/22/17 01:54 APTT 28 SECONDS (21-34) 06/22/17 01:54 - Constitutional Appears: Well - Head Exam Head Exam: NORMOCEPHALIC - Respiratory Exam Respiratory Exam: NORMAL BREATHING PATTERN - Cardiovascular Exam Cardiovascular Exam: REGULAR RHYTHM - GI/Abdominal Exam GI & Abdominal Exam: Soft, Normal Bowel Sounds. absent: Distended, Guarding, Tenderness, Mass Assessment and Plan (1) Acute diverticulitis Assessment & Plan: Clinically improved with conservative treatment recommend: 2 week course of antibiotics, advance diet as tolerated, colonoscopy in 4-6 weeks, our contact info to arrange colonoscopy was provided to patient. Will sign off, feel free to contact us if needed. Status: Acute
--- NOTE | 2017-06-23 15:02 | CP.PCM.PN ---
<Barbara Palmer - Last Filed: 06/23/17 15:59> Subjective - Date & Time of Evaluation Date of Evaluation: 06/23/17 Time of Evaluation: 07:50 - Subjective Subjective: Medicine note for Dr. Foster Patient seen and examined at beside. Patient resting comfortably in bed with no new complaints at this time. Patient says he is still having some lower abdominal pain especially when touched. Patient says he is having normal BMs. Patient denies fever, chills, nausea, vomiting, Diarrhea, constipation, leg pain , and leg swelling. Objective - Vital Signs/Intake and Output Vital Signs (last 24 hours): Temp Pulse Resp BP Pulse Ox 98.1 F 76 20 125/78 94 L 06/23/17 08:01 06/23/17 08:01 06/23/17 08:01 06/23/17 08:01 06/23/17 08:01 - Medications Medications: Current Medications Piperacillin Sod/Tazobactam Sod (Zosyn 3.375 Gm Iv Premix) 3.375 gm in 50 mls @ 100 mls/hr IVPB Q6H [facility] Last Admin: 06/23/17 09:56 Dose: 100 mls/hr Lorazepam (Ativan) 1 mg PO Q6H PRN; Taper PRN Reason: Symptoms of alcohol withdrawl Stop: 06/26/17 21:33 Morphine Sulfate (Morphine) 2 mg IV Q4 PRN PRN Reason: Pain, moderate (4-7) Last Admin: 06/23/17 12:05 Dose: 2 mg Nicotine (Nicoderm Cq) 1 patch TD DAILY@1999 [facility] Ondansetron HCl (Zofran Inj) 4 mg IVP Q4 PRN PRN Reason: Nausea/Vomiting Pantoprazole Sodium (Protonix Inj) 40 mg IVP DAILY [facility] Last Admin: 06/23/17 09:57 Dose: 40 mg - Labs Labs: 06/23/17 06:35 06/23/17 06:35 PT 11.2 SECONDS (9.7-12.2) 06/22/17 01:54 INR 1.0 06/22/17 01:54 APTT 28 SECONDS (21-34) 06/22/17 01:54 - Additional Findings Additional findings: - Constitutional Appears: Non-toxic, No Acute Distress - Head Exam Head Exam: NORMAL INSPECTION - Eye Exam Eye Exam: EOMI - ENT Exam ENT Exam: Mucous Membranes Moist - Respiratory Exam Respiratory Exam: NORMAL BREATHING PATTERN. absent: Accessory Muscle Use, Wheezes, Rales, Rhonchi, Respiratory Distress - Cardiovascular Exam Cardiovascular Exam: REGULAR RHYTHM, +S1, +S2. absent: Bradycardia, Tachycardia , Murmur - GI/Abdominal Exam GI & Abdominal Exam: Soft, Tenderness (LLQ and RLQ ), Normal Bowel Sounds - Extremities Exam Extremities Exam: Normal Inspection. absent: Calf Tenderness, Pedal Edema - Neurological Exam Neurological Exam: Alert, Awake - Psychiatric Exam Psychiatric exam: Normal Affect, Normal Mood - Skin Skin Exam: Dry, Intact, Normal Color, Warm Assessment and Plan - Assessment and Plan (Free Text) Plan: 1.) Abdominal Pain possibly secondary to acute diverticulitis vs colitis - Surgery Consult (Dr. Michael) - help appreciated - GI consulted (Dr. Gaytan) - help appreciated - Abdomen/Pelvis CT: Extensive inflammatory changes noted involving the rectosigmoid colon as well as adjacent small bowel in the lower pelvis. Tiny foci of air noted in this region not clearly within bowel loops, possibly related to micro perforation. Acute diverticulitis versus colitis (i.e. infectious, inflammatory, ischemic) considered. 2.2 x 2.2 cm left adrenal gland heterogeneous mass, indeterminate. * Will f/u repeat CT per surgery team - Obstruction series: no evidence of mechanical bowel obstruction - Advanced diet to CLD per surgery team - Pain medication: morphine 2mg q6 PRN - Normal Saline 100cc/hr 2.) Leukocytosis possibly due to acute diverticulitis vs colitis - Zosyn 3.375gm for possible infection - blood culture: no growth x 24h - Monitor CBC 3.) Dysuria possibly secondary to urinary tract infection - Urinalysis: +1 blood, negative nitrate, negative Leukocyte esterase - urine culture: negative 4.) Hypokalemia - Replete Potassium - Monitor 5.) Tobacco use disorder - Nicotine Patch for hospital course - Discussed smoking cessation 6.) Alcohol use disorder, possible - Alcohol serum level <10 - N/S with multivitamins, B12, Folate - AST/ALT: 26/35 - Lipase: 27 7.) Marijuana use disorder - Urinary drug screen + for Cannabinoids 8.) DVT Prophylaxis -SCDs - Protonix -Anticoagulation contraindicated due to possible perforation vs possible surgery Case discussed with Dr. Cristian Palmer, PGY1 <Shelton Foster - Last Filed: 07/02/17 07:43> Objective - Vital Signs/Intake and Output Vital Signs (last 24 hours): Temp Pulse Resp BP Pulse Ox 97.9 F 72 20 124/81 94 L 06/25/17 07:07 06/25/17 07:07 06/25/17 07:07 06/25/17 07:07 06/25/17 07:07 - Labs Labs: 06/25/17 08:35 06/25/17 08:35 PT 11.2 SECONDS (9.7-12.2) 06/22/17 01:54 INR 1.0 06/22/17 01:54 APTT 28 SECONDS (21-34) 06/22/17 01:54 Attending/Attestation - Attestation I have personally seen and examined this patient.: Yes I have fully participated in the care of the patient.: Yes I have reviewed all pertinent clinical information, including history, physical exam and plan: Yes Notes (Text): Patient was seen and examined. Discussed with the resident I agree with the resident's documentation of the assessment and plan.
[2017-06-24] MEDS: Piperacill/Tazo 3.375gm in Dex 3.375 GM/50 ML BAG IVPB SCH ×4 (01:22→20:20)
[2017-06-24 07:14] LABS: BASO % 0.2 % (0.0-2.0); EOS # 0.3 K/uL (0.0-0.7); EOS % 4.4 % (0.0-4.0); HEMATOCRIT 40.2 % (35.0-51.0); LYMPH # 0.9 K/uL (1.0-4.3); LYMPH % 14.1 % (20.0-40.0); MEAN CELL VOLUME 90.2 fL (80.0-94.0); MEAN CORPUSCULAR HEMOGLOBIN 30.3 pg (27.0-31.0); MEAN CORPUSCULAR HGB CONC 33.6 g/dL (33.0-37.0); MEAN PLATELET VOLUME 7.4 fL (7.2-11.7); MONO # 0.9 K/uL (0.0-0.8); MONO % 13.1 % (0.0-10.0); RED CELL DISTRIBUTION WIDTH 13.7 % (11.5-14.5); WHITE BLOOD COUNT 6.6 K/uL (4.8-10.8)
[2017-06-24 08:01] LABS: CHLORIDE 97 mmol/L (98-107); POTASSIUM 3.6 mmol/L (3.6-5.2); SODIUM 135 mmol/L (132-148)
[2017-06-24 08:03] LABS: AST/SGOT 25 U/L (17-59); BILIRUBIN,TOTAL 0.9 mg/dL (0.2-1.3); CARBON DIOXIDE 29 mmol/L (22-30); GFR AFRICAN-AMERICAN > 60
[2017-06-24 08:04] LABS: ALB/GLOB RATIO 1.4 (1.0-2.1); ALKALINE PHOSPHATASE 46 U/L (38-126); ALT/SGPT 34 U/L (21-72); BLOOD UREA NITROGEN 8 mg/dL (9-20); CALCIUM 9.1 mg/dl (8.6-10.4); GLUCOSE,RANDOM 88 mg/dL (75-110); MAGNESIUM 2.2 mg/dL (1.6-2.3); PHOSPHOROUS 3.3 mg/dL (2.5-4.5); TOTAL PROTEIN 7.1 g/dL (6.3-8.3)
[2017-06-24] MEDS ORDERED: Morphine 4 MG/ML VIAL IV PRN (09:51)
[2017-06-24] MEDS ORDERED: Pneumococcal 23-Valent Vaccine IM ONE (10:00)
--- NOTE | 2017-06-24 10:22 | CP.PCM.PN ---
Subjective - Date & Time of Evaluation Date of Evaluation: 06/24/17 Time of Evaluation: 09:40 - Subjective Subjective: General Surgery Pt S&E, NAEO. No F/C, N/V. +BM and flatus. Tolerating liquid diet. Ambulating. Objective - Vital Signs/Intake and Output Vital Signs (last 24 hours): Temp Pulse Resp BP Pulse Ox 97.7 F 78 20 132/81 97 06/23/17 23:16 06/23/17 23:16 06/23/17 23:16 06/23/17 23:16 06/23/17 23:16 Intake and Output: 06/24/17 06/24/17 06:59 18:59 Intake Total 550 Balance 550 - Medications Medications: Current Medications Piperacillin Sod/Tazobactam Sod (Zosyn 3.375 Gm Iv Premix) 3.375 gm in 50 mls @ 100 mls/hr IVPB Q6H [facility] Last Admin: 06/24/17 06:45 Dose: 100 mls/hr Lorazepam (Ativan) 1 mg PO Q8H PRN; Taper PRN Reason: Symptoms of alcohol withdrawl Stop: 06/26/17 21:33 Morphine Sulfate (Morphine) 2 mg IV Q4 PRN PRN Reason: Pain, moderate (4-7) Nicotine (Nicoderm Cq) 1 patch TD DAILY@1999 [facility] Last Admin: 06/23/17 19:40 Dose: 1 patch Ondansetron HCl (Zofran Inj) 4 mg IVP Q4 PRN PRN Reason: Nausea/Vomiting Pantoprazole Sodium (Protonix Inj) 40 mg IVP DAILY [facility] Last Admin: 06/24/17 09:45 Dose: 40 mg - Labs Labs: 06/24/17 07:03 06/24/17 07:03 PT 11.2 SECONDS (9.7-12.2) 06/22/17 01:54 INR 1.0 06/22/17 01:54 APTT 28 SECONDS (21-34) 06/22/17 01:54 - Constitutional Appears: Non-toxic, No Acute Distress - Head Exam Head Exam: ATRAUMATIC, NORMOCEPHALIC - Eye Exam Eye Exam: EOMI. absent: Scleral icterus - Respiratory Exam Respiratory Exam: NORMAL BREATHING PATTERN. absent: Respiratory Distress - GI/Abdominal Exam GI & Abdominal Exam: Soft, Tenderness (mild in lower quadrants). absent: Distended, Firm, Guarding, Rigid - Neurological Exam Neurological Exam: Alert, Awake - Skin Skin Exam: Dry, Warm Assessment and Plan - Assessment and Plan (Free Text) Assessment: 52M with diverticulitis with possible microperf Plan: Repeat CT prior to DC Continue abx, oral for DC pain control PRN Monitor Diet tolerance D/W Dr. Fernanda Ayers PGY4
--- NOTE | 2017-06-24 17:33 | CP.PCM.PN ---
<Bar Schultz - Last Filed: 06/24/17 17:29> Subjective - Date & Time of Evaluation Date of Evaluation: 06/24/17 Time of Evaluation: 12:30 - Subjective Subjective: PGY-1 medicine note. No acute events overnight. Patient was seen and examined at bedside this AM. He was seen earlier walking around in the no without problem. Patient had no complaints at this time. Patient denied chest pain, shortness of breath, abdominal pain, headache, nausea, vomiting, diarrhea, constipation, fever or chills. Objective - Vital Signs/Intake and Output Vital Signs (last 24 hours): Temp Pulse Resp BP Pulse Ox 97.7 F 78 20 132/81 97 06/23/17 23:16 06/23/17 23:16 06/23/17 23:16 06/23/17 23:16 06/23/17 23:16 Intake and Output: 06/24/17 06/24/17 06:59 18:59 Intake Total 550 450 Output Total 500 Balance 550 -50 - Medications Medications: Current Medications Piperacillin Sod/Tazobactam Sod (Zosyn 3.375 Gm Iv Premix) 3.375 gm in 50 mls @ 100 mls/hr IVPB Q6H [facility] Last Admin: 06/24/17 13:36 Dose: 100 mls/hr Ketorolac Tromethamine (Toradol) 10 mg PO Q6 PRN PRN Reason: Pain, moderate (4-7) Last Admin: 06/24/17 16:55 Dose: 10 mg Lorazepam (Ativan) 1 mg PO Q8H PRN; Taper PRN Reason: Symptoms of alcohol withdrawl Stop: 06/26/17 21:33 Nicotine (Nicoderm Cq) 1 patch TD DAILY@1999 [facility] Last Admin: 06/23/17 19:40 Dose: 1 patch Ondansetron HCl (Zofran Inj) 4 mg IVP Q4 PRN PRN Reason: Nausea/Vomiting Pantoprazole Sodium (Protonix Inj) 40 mg IVP DAILY [facility] Last Admin: 06/24/17 09:45 Dose: 40 mg - Labs Labs: 06/24/17 07:03 06/24/17 07:03 PT 11.2 SECONDS (9.7-12.2) 06/22/17 01:54 INR 1.0 06/22/17 01:54 APTT 28 SECONDS (21-34) 06/22/17 01:54 - Additional Findings Additional findings: - Constitutional Appears: Non-toxic, No Acute Distress - Head Exam Head Exam: NORMAL INSPECTION - Eye Exam Eye Exam: EOMI - ENT Exam ENT Exam: Mucous Membranes Moist - Respiratory Exam Respiratory Exam: NORMAL BREATHING PATTERN. absent: Accessory Muscle Use, Wheezes, Rales, Rhonchi, Respiratory Distress - Cardiovascular Exam Cardiovascular Exam: REGULAR RHYTHM, +S1, +S2. absent: Bradycardia, Tachycardia , Murmur - GI/Abdominal Exam GI & Abdominal Exam: Soft, Tenderness (LLQ and RLQ ), Normal Bowel Sounds - Extremities Exam Extremities Exam: Normal Inspection. absent: Calf Tenderness, Pedal Edema - Neurological Exam Neurological Exam: Alert, Awake - Psychiatric Exam Psychiatric exam: Normal Affect, Normal Mood - Skin Skin Exam: Dry, Intact, Normal Color, Warm Assessment and Plan - Assessment and Plan (Free Text) Assessment: 1.) Abdominal Pain possibly secondary to acute diverticulitis vs colitis - Surgery Consult (Dr. Michael) - help appreciated - GI consulted (Dr. Gaytan) - help appreciated - Abdomen/Pelvis CT: Extensive inflammatory changes noted involving the rectosigmoid colon as well as adjacent small bowel in the lower pelvis. Tiny foci of air noted in this region not clearly within bowel loops, possibly related to micro perforation. Acute diverticulitis versus colitis (i.e. infectious, inflammatory, ischemic) considered. 2.2 x 2.2 cm left adrenal gland heterogeneous mass, indeterminate. * Will f/u repeat CT per surgery team - Obstruction series: no evidence of mechanical bowel obstruction - Advanced diet to regular diet per surgery team - Pain medication: morphine 2mg q6 PRN - Normal Saline 100cc/hr - Per GI, colonoscopy in 4-6 weeks 2.) Leukocytosis possibly due to acute diverticulitis vs colitis - Zosyn 3.375gm for possible infection - blood culture: no growth x 24h - Monitor CBC 3.) Dysuria possibly secondary to urinary tract infection - Urinalysis: +1 blood, negative nitrate, negative Leukocyte esterase - urine culture: negative 4.) Hypokalemia - Replete Potassium - Monitor 5.) Tobacco use disorder - Nicotine Patch for hospital course - Discussed smoking cessation 6.) Alcohol use disorder, possible - Alcohol serum level <10 - N/S with multivitamins, B12, Folate - AST/ALT: - Lipase: 27 7.) Marijuana use disorder - Urinary drug screen + for Cannabinoids 8.) DVT Prophylaxis -SCDs - Protonix -Anticoagulation contraindicated due to possible perforation vs possible surgery <Shelton Foster - Last Filed: 07/02/17 11:45> Objective - Vital Signs/Intake and Output Vital Signs (last 24 hours): Temp Pulse Resp BP Pulse Ox 97.9 F 72 20 124/81 94 L 06/25/17 07:07 06/25/17 07:07 06/25/17 07:07 06/25/17 07:07 06/25/17 07:07 - Labs Labs: 06/25/17 08:35 06/25/17 08:35 PT 11.2 SECONDS (9.7-12.2) 06/22/17 01:54 INR 1.0 06/22/17 01:54 APTT 28 SECONDS (21-34) 06/22/17 01:54 Attending/Attestation - Attestation I have personally seen and examined this patient.: Yes I have fully participated in the care of the patient.: Yes I have reviewed all pertinent clinical information, including history, physical exam and plan: Yes Notes (Text): Patient was seen and examined Discussed with the resident I agree with the resident's documentation of the assessment and the plan
[2017-06-25] MEDS: Piperacill/Tazo 3.375gm in Dex 3.375 GM/50 ML BAG IVPB SCH ×3 (01:16→13:07)
[2017-06-25 03:26] VITALS: RESP 20
[2017-06-25] MEDS ORDERED: Iohexol 240 (50 ml) PO PRN (07:14)
[2017-06-25 08:53] LABS: BASO % 0.4 % (0.0-2.0); EOS # 0.2 K/uL (0.0-0.7); EOS % 3.3 % (0.0-4.0); HEMATOCRIT 41.1 % (35.0-51.0); LYMPH % 14.1 % (20.0-40.0); MEAN CELL VOLUME 90.1 fL (80.0-94.0); MEAN CORPUSCULAR HEMOGLOBIN 31.1 pg (27.0-31.0); MEAN CORPUSCULAR HGB CONC 34.5 g/dL (33.0-37.0); MEAN PLATELET VOLUME 7.5 fL (7.2-11.7); MONO % 14.5 % (0.0-10.0); RED CELL DISTRIBUTION WIDTH 13.8 % (11.5-14.5); WHITE BLOOD COUNT 6.9 K/uL (4.8-10.8)
[2017-06-25 08:59] LABS: CHLORIDE 96 mmol/L (98-107); POTASSIUM 3.9 mmol/L (3.6-5.2); SODIUM 135 mmol/L (132-148)
[2017-06-25 09:01] LABS: ALB/GLOB RATIO 1.4 (1.0-2.1); ALKALINE PHOSPHATASE 52 U/L (38-126); ALT/SGPT 31 U/L (21-72); AST/SGOT 27 U/L (17-59); BLOOD UREA NITROGEN 12 mg/dL (9-20); CARBON DIOXIDE 29 mmol/L (22-30); GFR AFRICAN-AMERICAN > 60; TOTAL PROTEIN 7.5 g/dL (6.3-8.3)
[2017-06-25 09:03] LABS: CALCIUM 9.3 mg/dl (8.6-10.4); GLUCOSE,RANDOM 106 mg/dL (75-110); MAGNESIUM 2.1 mg/dL (1.6-2.3); PHOSPHOROUS 3.2 mg/dL (2.5-4.5)
[2017-06-25 09:08] VITALS: BP 124/81; PULSE 72; TEMP 97.9; O2SAT 94
[2017-06-25] MEDS ORDERED: Iohexol 240 (50 ml) PO ONE (09:15)
--- NOTE | 2017-06-25 10:28 | CP.PCM.PN ---
Subjective - Date & Time of Evaluation Date of Evaluation: 06/25/17 Time of Evaluation: 10:24 - Subjective Subjective: Surgery: Dr. Michael Patient w/o any pain today. Tolerated regular diet yesterday. Patient for CT scan abd/pelvis today. Objective - Vital Signs/Intake and Output Vital Signs (last 24 hours): Temp Pulse Resp BP Pulse Ox 97.9 F 72 20 124/81 94 L 06/25/17 07:07 06/25/17 07:07 06/25/17 07:07 06/25/17 07:07 06/25/17 07:07 Intake and Output: 06/25/17 06/25/17 06:59 18:59 Output Total 300 Balance -300 - Medications Medications: Current Medications Piperacillin Sod/Tazobactam Sod (Zosyn 3.375 Gm Iv Premix) 3.375 gm in 50 mls @ 100 mls/hr IVPB Q6H [facility] Last Admin: 06/25/17 06:39 Dose: 100 mls/hr Iohexol (Omnipaque 240 (50 Ml)) 50 ml PO ONCE PRN Ketorolac Tromethamine (Toradol) 10 mg PO Q6 PRN PRN Reason: Pain, moderate (4-7) Last Admin: 06/25/17 10:01 Dose: 10 mg Lorazepam (Ativan) 1 mg PO Q12H PRN; Taper PRN Reason: Symptoms of alcohol withdrawl Stop: 06/26/17 21:33 Nicotine (Nicoderm Cq) 1 patch TD DAILY@1999 [facility] Last Admin: 06/24/17 20:20 Dose: 1 patch Ondansetron HCl (Zofran Inj) 4 mg IVP Q4 PRN PRN Reason: Nausea/Vomiting Pantoprazole Sodium (Protonix Inj) 40 mg IVP DAILY [facility] Last Admin: 06/25/17 09:29 Dose: 40 mg - Labs Labs: 06/25/17 08:35 06/25/17 08:35 PT 11.2 SECONDS (9.7-12.2) 06/22/17 01:54 INR 1.0 06/22/17 01:54 APTT 28 SECONDS (21-34) 06/22/17 01:54 - Constitutional Appears: Non-toxic, No Acute Distress - Head Exam Head Exam: ATRAUMATIC, NORMOCEPHALIC - Eye Exam Eye Exam: EOMI, Normal appearance - ENT Exam ENT Exam: Mucous Membranes Moist - Respiratory Exam Respiratory Exam: NORMAL BREATHING PATTERN. absent: Respiratory Distress - Cardiovascular Exam Cardiovascular Exam: REGULAR RHYTHM. absent: Tachycardia - GI/Abdominal Exam GI & Abdominal Exam: Soft. absent: Distended, Guarding, Tenderness, Rebound - Extremities Exam Extremities Exam: Normal Inspection. absent: Calf Tenderness - Neurological Exam Neurological Exam: Alert, Awake - Skin Skin Exam: Dry, Normal Color, Warm Assessment and Plan - Assessment and Plan (Free Text) Assessment: 52 y/o male w/ acute diverticulitis w/ microperforation, resolved Plan: -needs PO abx for about 7-10 days upon d/c -f/u with GI doctor for outpatient cscope -cleared for d/c from surgical standpoint once CT scan completed -f/u w/ Dr. Michael in 1-2 weeks. Call office for appointment -d/w Dr. Michael [facility] PGY3
--- NOTE | 2017-06-25 13:32 | CT ---
PROCEDURE: CT Abdomen and Pelvis without intravenous contrast HISTORY: comparison of diverticulitis COMPARISON: 06/21/2017 TECHNIQUE: Multiple contiguous axial images were performed through the abdomen and pelvis without intravenous contrast. Subsequently, sagittal and coronal reformatted images were obtained. Radiation dose: Total exam DLP = 643 mGy-cm. This CT exam was performed using one or more of the following dose reduction techniques: Automated exposure control, adjustment of the mA and/or kV according to patient size, and/or use of iterative reconstruction technique. FINDINGS: LOWER THORAX: Unremarkable. LIVER: Unremarkable. No gross lesion or ductal dilatation. GALLBLADDER AND BILE DUCTS: Unremarkable. PANCREAS: Unremarkable. No gross lesion or ductal dilatation. SPLEEN: Unremarkable. ADRENALS: 2.2 x 2.2 centimeter left adrenal gland heterogeneous mass, indeterminate. KIDNEYS AND URETERS: Unremarkable. No hydronephrosis. No solid mass. VASCULATURE: Unremarkable. No aortic aneurysm. BOWEL: Persistent extensive inflammatory changes noted involving the rectosigmoid colon as well as adjacent small bowel in the lower pelvis. At the level of the proximal to mid sigmoid colon, there is prominent focal thickening. Superior to this level, there is confluent mesenteric fat stranding and inflammation with a punctate foci of air best seen on series 3, image 117. These changes may represent a focal diverticulitis versus focal colitis with associated possible developing phlegmonous changes measuring up to 4.8 x 2.5 centimeters with superimposed microperforation. This is best seen on series 3 image 118. Diverticulosis throughout remainder of the colon. APPENDIX: Unremarkable. Normal appendix. PERITONEUM: Small amount of free fluid within the posterior pelvis. LYMPH NODES: Shotty para-aortic and mesenteric lymph nodes. BLADDER: Unremarkable. REPRODUCTIVE: Heterogeneous prostate measuring 3.8 x 4.2 centimeters. BONES: No acute fracture. OTHER FINDINGS: IMPRESSION: 1. Persistent extensive inflammatory changes noted involving the rectosigmoid colon as well as adjacent small bowel in the lower pelvis. At the level of the proximal to mid sigmoid colon, there is prominent focal thickening. Superior to this level, there is confluent mesenteric fat stranding and inflammation with a punctate foci of air best seen on series 3, image 117. These changes may represent a focal diverticulitis versus focal colitis with associated possible developing phlegmonous changes measuring up to 4.8 x 2.5 centimeters with superimposed microperforation. This is best seen on series 3 image 118. Diverticulosis throughout remainder of the colon. 2. Small amount of free fluid within the posterior pelvis. 3. 2.2 x 2.2 centimeter left adrenal gland heterogeneous mass, indeterminate. 4. Heterogeneous prostate measuring 3.8 x 4.2 centimeters. Additional findings as above.
--- NOTE | 2017-06-25 16:03 | CP.PCM.DIS ---
<Bar Schultz - Last Filed: 06/25/17 15:59> Provider - Provider Date of Admission: 06/21/17 20:20 Attending physician: August Jansen MD Primary care physician: None Consults: GI - Dr Gaytan General Surg - Dr Michael Time Spent in preparation of Discharge (in minutes): 45 Hospital Course - Lab Results Lab Results: Micro Results 06/22/17 01:50 Blood-Venous Blood Culture - Preliminary NO GROWTH AFTER 3 DAYS 06/22/17 02:12 Blood-Venous Blood Culture - Preliminary NO GROWTH AFTER 3 DAYS 06/22/17 01:44 Urine,Clean Catch Urine Culture - Final No Growth (<1,000 CFU/ML) Most Recent Lab Values WBC 6.9 K/uL (4.8-10.8) 06/25/17 08:35 RBC 4.56 Mil/uL (4.40-5.90) 06/25/17 08:35 Hgb 14.2 g/dL (12.0-18.0) 06/25/17 08:35 Hct 41.1 % (35.0-51.0) 06/25/17 08:35 MCV 90.1 fL (80.0-94.0) 06/25/17 08:35 MCH 31.1 pg (27.0-31.0) H 06/25/17 08:35 MCHC 34.5 g/dL (33.0-37.0) 06/25/17 08:35 RDW 13.8 % (11.5-14.5) 06/25/17 08:35 Plt Count 264 K/uL (130-400) 06/25/17 08:35 MPV 7.5 fL (7.2-11.7) 06/25/17 08:35 Neut % (Auto) 67.7 % (50.0-75.0) 06/25/17 08:35 Lymph % (Auto) 14.1 % (20.0-40.0) L 06/25/17 08:35 Levy % (Auto) 14.5 % (0.0-10.0) H 06/25/17 08:35 Eos % (Auto) 3.3 % (0.0-4.0) 06/25/17 08:35 Baso % (Auto) 0.4 % (0.0-2.0) 06/25/17 08:35 Neut # 4.7 K/uL (1.8-7.0) 06/25/17 08:35 Lymph # 1.0 K/uL (1.0-4.3) 06/25/17 08:35 Levy # 1.0 K/uL (0.0-0.8) H 06/25/17 08:35 Eos # 0.2 K/uL (0.0-0.7) 06/25/17 08:35 Baso # 0.0 K/uL (0.0-0.2) 06/25/17 08:35 PT 11.2 SECONDS (9.7-12.2) 06/22/17 01:54 INR 1.0 06/22/17 01:54 APTT 28 SECONDS (21-34) 06/22/17 01:54 Sodium 135 mmol/L (132-148) 06/25/17 08:35 Potassium 3.9 mmol/L (3.6-5.2) 06/25/17 08:35 Chloride 96 mmol/L (98-107) L 06/25/17 08:35 Carbon Dioxide 29 mmol/L (22-30) 06/25/17 08:35 Anion Gap 14 (10-20) 06/25/17 08:35 BUN 12 mg/dL (9-20) 06/25/17 08:35 Creatinine 0.9 mg/dL (0.8-1.5) 06/25/17 08:35 Est GFR ( Amer) > 60 06/25/17 08:35 Est GFR (Non-Af Amer) > 60 06/25/17 08:35 Random Glucose 106 mg/dL (75-110) 06/25/17 08:35 Calcium 9.3 mg/dl (8.6-10.4) 06/25/17 08:35 Phosphorus 3.2 mg/dL (2.5-4.5) 06/25/17 08:35 Magnesium 2.1 mg/dL (1.6-2.3) 06/25/17 08:35 Total Bilirubin 1.0 mg/dL (0.2-1.3) 06/25/17 08:35 AST 27 U/L (17-59) 06/25/17 08:35 ALT 31 U/L (21-72) 06/25/17 08:35 Alkaline Phosphatase 52 U/L (38-126) 06/25/17 08:35 Total Protein 7.5 g/dL (6.3-8.3) 06/25/17 08:35 Albumin 4.4 g/dL (3.5-5.0) 06/25/17 08:35 Globulin 3.1 gm/dL (2.2-3.9) 06/25/17 08:35 Albumin/Globulin Ratio 1.4 (1.0-2.1) 06/25/17 08:35 Lipase 27 U/L (23-300) 06/21/17 15:51 Urine Color Yellow (YELLOW) 06/21/17 15:57 Urine Clarity Clear (Clear) 06/21/17 15:57 Urine pH 5.0 (5.0-8.0) 06/21/17 15:57 Ur Specific [place] 1.026 (1.003-1.030) 06/21/17 15:57 Urine Protein Negative mg/dL (NEGATIVE) 06/21/17 15:57 Urine Glucose (UA) Normal mg/dL (Normal) 06/21/17 15:57 Urine Ketones Negative mg/dL (NEGATIVE) 06/21/17 15:57 Urine Blood 1+ (NEGATIVE) H 06/21/17 15:57 Urine Nitrate Negative (NEGATIVE) 06/21/17 15:57 Urine Bilirubin Negative (NEGATIVE) 06/21/17 15:57 Urine Urobilinogen Normal mg/dL (0.2-1.0) 06/21/17 15:57 Ur Leukocyte Esterase Neg Jorge Alberto/uL (Negative) 06/21/17 15:57 Urine WBC (Auto) < 1 /hpf (0-5) 06/21/17 15:57 Urine RBC (Auto) 2 /hpf (0-3) 06/21/17 15:57 Ur Squamous Epith Cells < 1 /hpf (0-5) 06/21/17 15:57 Urine Opiates Screen Positive (NEGATIVE) 06/21/17 22:26 Urine Methadone Screen Negative (NEGATIVE) 06/21/17 22:26 Ur Barbiturates Screen Negative (NEGATIVE) 06/21/17 22:26 Ur Phencyclidine Scrn Negative (NEGATIVE) 06/21/17 22:26 Ur Amphetamines Screen Negative (NEGATIVE) 06/21/17 22:26 U Benzodiazepines Scrn Negative (NEGATIVE) 06/21/17 22:26 U Oth Cocaine Metabols Negative (NEGATIVE) 06/21/17 22:26 U Cannabinoids Screen Positive (NEGATIVE) 06/21/17 22:26 Alcohol, Quantitative < 10 mg/dl (0-10) 06/22/17 01:54 - Hospital Course Hospital Course: CC: Stomach hurts HPI: 52 year old male with previous history of diverticulitis presents to the ED with abdominal pain that started at 11AM today when he was at work. Patient describes the pain as a "cramping" pain that is constant. Patient describes the pain as being located in the entire abdomen but is most severe in the left and right lower quadrants. Pain is rated a 10/10; pain medication (morphine) administered by ED brought the pain level to 8 out of 10 and when he moves around that makes the pain worse. Patient also complains of chills and pain on urination that started at 11AM as well. Patient denies fever, nausea, vomiting, diarrhea, chest pain, shortness of breath, syncope, hematachezia, and hematuria. PMD: none currently Past Medical History: Diverticulitis in February 2017 Past Surgical History: 2017 Elbow surgery, Left Rotator Cuff (2013), Right Rotator cuff (2008) Medications: Tylenol as needed Allergies: Hazelnuts Social History: Patient is and lives with . 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 Patient states he smoke 1/2 pack a day for 20 years. Patient states he drinks 2 beers, 3-4 times per week. Patient states he smokes marijuana once a week. Patient denied any other illicit drug use. HOSPITAL COURSE: Patient was admitted for abdominal pain. A CT abd/pelvis showed "Extensive inflammatory changes noted involving the rectosigmoid colon as well as adjacent small bowel in the lower pelvis. Tiny foci of air noted in this region not clearly within bowel loops, possibly related to micro perforation. Acute diverticulitis versus colitis (i.e. infectious, inflammatory , ischemic) considered. 2.2 x 2.2 cm left adrenal gland heterogeneous mass, indeterminate". Dr Gaytan of GI and Dr Michael of Surgery were consulted. An obstruction series was also ordered which showed no evidence of mechanical bowel obstruction. He was given morphine for pain control advanced his diet cautiously. He was given abx zosyn 3.375g. Blood cultures showed no growth. He was given multivitamin, B12 and folate for his possible alcohol use disorder. Discharge Exam - Additional Findings Additional findings: - Constitutional Appears: Non-toxic, No Acute Distress - Head Exam Head Exam: NORMAL INSPECTION - Eye Exam Eye Exam: EOMI - ENT Exam ENT Exam: Mucous Membranes Moist - Respiratory Exam Respiratory Exam: NORMAL BREATHING PATTERN. absent: Accessory Muscle Use, Wheezes, Rales, Rhonchi, Respiratory Distress - Cardiovascular Exam Cardiovascular Exam: REGULAR RHYTHM, +S1, +S2. absent: Bradycardia, Tachycardia , Murmur - GI/Abdominal Exam GI & Abdominal Exam: Soft, Tenderness (LLQ and RLQ ), Normal Bowel Sounds - Extremities Exam Extremities Exam: Normal Inspection. absent: Calf Tenderness, Pedal Edema - Neurological Exam Neurological Exam: Alert, Awake - Psychiatric Exam Psychiatric exam: Normal Affect, Normal Mood - Skin Skin Exam: Dry, Intact, Normal Color, Warm Discharge Plan - Discharge Medications Prescriptions: Ciprofloxacin/Ciprofloxa HCl [Ciprofloxacin ER 500 mg Tablet] 500 mg PO BID #20 tbmp.24hr metroNIDAZOLE 500mg/100ml NS [Flagyl 500MG/100ML NS] 500 mg PO TID #30 bag - Follow Up Plan Condition: SERIOUS Disposition: HOME/ ROUTINE Instructions: Ciprofloxacin (By mouth), Metronidazole (By mouth), Diverticulitis (DC), Constipation (DC), Acute Abdominal Pain (DC) Additional Instructions: Patient is medically stable for discharge. Patient is to follow-up with GI, Dr Miller, to arrange colonoscopy in 4-6 weeks. Contact information was provided by Dr Miller. Patient is to take the following NEW medications: Ciprofloxacin 500mg by mouth twice a day for 10 days Flagyl 500mg by mouth three times a day for 10 days Patient should establish care with a Primary Care Physican to manage his medical conditions. Referrals: Anuel Gaytan MD [Staff Provider] - <Shelton Foster - Last Filed: 07/02/17 11:49> Provider - Provider Date of Admission: 06/21/17 20:20 Attending physician: August Jansen MD Hospital Course - Lab Results Lab Results: Micro Results 06/22/17 01:50 Blood-Venous Blood Culture - Final NO GROWTH AFTER 5 DAYS 06/22/17 01:50 Blood-Venous Gram Stain - Final TEST NOT PERFORMED 06/22/17 02:12 Blood-Venous Blood Culture - Final NO GROWTH AFTER 5 DAYS 06/22/17 02:12 Blood-Venous Gram Stain - Final TEST NOT PERFORMED 06/22/17 01:44 Urine,Clean Catch Urine Culture - Final No Growth (<1,000 CFU/ML) Most Recent Lab Values WBC 6.9 K/uL (4.8-10.8) 06/25/17 08:35 RBC 4.56 Mil/uL (4.40-5.90) 06/25/17 08:35 Hgb 14.2 g/dL (12.0-18.0) 06/25/17 08:35 Hct 41.1 % (35.0-51.0) 06/25/17 08:35 MCV 90.1 fL (80.0-94.0) 06/25/17 08:35 MCH 31.1 pg (27.0-31.0) H 06/25/17 08:35 MCHC 34.5 g/dL (33.0-37.0) 06/25/17 08:35 RDW 13.8 % (11.5-14.5) 06/25/17 08:35 Plt Count 264 K/uL (130-400) 06/25/17 08:35 MPV 7.5 fL (7.2-11.7) 06/25/17 08:35 Neut % (Auto) 67.7 % (50.0-75.0) 06/25/17 08:35 Lymph % (Auto) 14.1 % (20.0-40.0) L 06/25/17 08:35 Levy % (Auto) 14.5 % (0.0-10.0) H 06/25/17 08:35 Eos % (Auto) 3.3 % (0.0-4.0) 06/25/17 08:35 Baso % (Auto) 0.4 % (0.0-2.0) 06/25/17 08:35 Neut # 4.7 K/uL (1.8-7.0) 06/25/17 08:35 Lymph # 1.0 K/uL (1.0-4.3) 06/25/17 08:35 Levy # 1.0 K/uL (0.0-0.8) H 06/25/17 08:35 Eos # 0.2 K/uL (0.0-0.7) 06/25/17 08:35 Baso # 0.0 K/uL (0.0-0.2) 06/25/17 08:35 PT 11.2 SECONDS (9.7-12.2) 06/22/17 01:54 INR 1.0 06/22/17 01:54 APTT 28 SECONDS (21-34) 06/22/17 01:54 Sodium 135 mmol/L (132-148) 06/25/17 08:35 Potassium 3.9 mmol/L (3.6-5.2) 06/25/17 08:35 Chloride 96 mmol/L (98-107) L 06/25/17 08:35 Carbon Dioxide 29 mmol/L (22-30) 06/25/17 08:35 Anion Gap 14 (10-20) 06/25/17 08:35 BUN 12 mg/dL (9-20) 06/25/17 08:35 Creatinine 0.9 mg/dL (0.8-1.5) 06/25/17 08:35 Est GFR ( Amer) > 60 06/25/17 08:35 Est GFR (Non-Af Amer) > 60 06/25/17 08:35 Random Glucose 106 mg/dL (75-110) 06/25/17 08:35 Calcium 9.3 mg/dl (8.6-10.4) 06/25/17 08:35 Phosphorus 3.2 mg/dL (2.5-4.5) 06/25/17 08:35 Magnesium 2.1 mg/dL (1.6-2.3) 06/25/17 08:35 Total Bilirubin 1.0 mg/dL (0.2-1.3) 06/25/17 08:35 AST 27 U/L (17-59) 06/25/17 08:35 ALT 31 U/L (21-72) 06/25/17 08:35 Alkaline Phosphatase 52 U/L (38-126) 06/25/17 08:35 Total Protein 7.5 g/dL (6.3-8.3) 06/25/17 08:35 Albumin 4.4 g/dL (3.5-5.0) 06/25/17 08:35 Globulin 3.1 gm/dL (2.2-3.9) 06/25/17 08:35 Albumin/Globulin Ratio 1.4 (1.0-2.1) 06/25/17 08:35 Lipase 27 U/L (23-300) 06/21/17 15:51 Urine Color Yellow (YELLOW) 06/21/17 15:57 Urine Clarity Clear (Clear) 06/21/17 15:57 Urine pH 5.0 (5.0-8.0) 06/21/17 15:57 Ur Specific [place] 1.026 (1.003-1.030) 06/21/17 15:57 Urine Protein Negative mg/dL (NEGATIVE) 06/21/17 15:57 Urine Glucose (UA) Normal mg/dL (Normal) 06/21/17 15:57 Urine Ketones Negative mg/dL (NEGATIVE) 06/21/17 15:57 Urine Blood 1+ (NEGATIVE) H 06/21/17 15:57 Urine Nitrate Negative (NEGATIVE) 06/21/17 15:57 Urine Bilirubin Negative (NEGATIVE) 06/21/17 15:57 Urine Urobilinogen Normal mg/dL (0.2-1.0) 06/21/17 15:57 Ur Leukocyte Esterase Neg Jorge Alberto/uL (Negative) 06/21/17 15:57 Urine WBC (Auto) < 1 /hpf (0-5) 06/21/17 15:57 Urine RBC (Auto) 2 /hpf (0-3) 06/21/17 15:57 Ur Squamous Epith Cells < 1 /hpf (0-5) 06/21/17 15:57 Urine Opiates Screen Positive (NEGATIVE) 06/21/17 22:26 Urine Methadone Screen Negative (NEGATIVE) 06/21/17 22:26 Ur Barbiturates Screen Negative (NEGATIVE) 06/21/17 22:26 Ur Phencyclidine Scrn Negative (NEGATIVE) 06/21/17 22:26 Ur Amphetamines Screen Negative (NEGATIVE) 06/21/17 22:26 U Benzodiazepines Scrn Negative (NEGATIVE) 06/21/17 22:26 U Oth Cocaine Metabols Negative (NEGATIVE) 06/21/17 22:26 U Cannabinoids Screen Positive (NEGATIVE) 06/21/17 22:26 Alcohol, Quantitative < 10 mg/dl (0-10) 06/22/17 01:54 Attending/Attestation - Attestation I have personally seen and examined this patient.: Yes I have fully participated in the care of the patient.: Yes I have reviewed all pertinent clinical information, including history, physical exam and plan: Yes Notes (Text): Patient was seen and examined Plan discussed with the patient I agree with the resident's documentation of the assessment and the plan
== END 2017-06-25 17:19 | disposition home or self-care (01) | DRG 182 ==
LOC: C.ER 14:42 → C.9E 20:20 → C.5S 06-22 07:39
PROVIDERS: ADMIT Family Medicine; ATTEND Family Medicine
DX: K57.92 Diverticulitis of intestine, part unspecified, without perforation or abscess without bleeding (principal); E87.6 Hypokalemia; F11.10 Opioid abuse, uncomplicated; D72.829 Elevated white blood cell count, unspecified; F10.10 Alcohol abuse, uncomplicated; F17.200 Nicotine dependence, unspecified, uncomplicated; F12.90 Cannabis use, unspecified, uncomplicated; K59.00 Constipation, unspecified

== ENCOUNTER 2018-02-14 11:33 | Emergency (ER) | payer SELFPAY ==
[2018-02-14 11:34] VITALS: BMI 29.0
[2018-02-14 11:37] VITALS: TEMP 98.6
--- NOTE | 2018-02-14 13:17 | C.PDOC ---
History Of Present Illness 52 y/o male with hx diverticulitis, s/p recent surgery for same, and right rotator cuff surgery (2011) c/o pain and dec range of motion to right shoulder and pain to distal left forearm and wrist since pt slipped on wet surface at a pool on Sat and fell onto right shoulder and hit head. pt denies loc, denies neck pain. no numbness or tingling. pt reports tylenol and advil not helping. pt also c/o feeling dizzy in the morning when initially waking up and sitting up since Monday with occasional nausea; pt sts sensation subsides after 2-3 minutes. Time Seen by Provider: 02/14/18 12:12 Chief Complaint (Nursing): Upper Extremity Problem/Injury History Per: Patient History/Exam Limitations: no limitations Onset/Duration Of Symptoms: Days (4) Current Symptoms Are (Timing): Still Present Quality: "Pain" Severity: Moderate Past Medical History Reviewed: Historical Data, Nursing Documentation, Vital Signs Vital Signs: Last Vital Signs Temp 98.6 F 02/14/18 11:35 Pulse 75 02/14/18 15:16 Resp 18 02/14/18 15:16 BP 130/81 02/14/18 15:16 Pulse Ox 99 02/14/18 22:36 - Medical History PMH: Diverticulitis Denies: HTN (PT DENIES), Hypercholesterolemia (PT DENIES), Chronic Kidney Disease Other Surgeries: partial colectomy for diverticulitis October 2017 - [facility] INTRODUCE LOCAL ANESTH IN PERIPH NRV, PLEXI, PERC (10/18/17) RESECTION OF SIGMOID COLON, OPEN APPROACH (10/18/17) Family History: States: Unknown Family Hx - Social History Hx Alcohol Use: Yes Hx Substance Use: No - Immunization History Hx Tetanus Toxoid Vaccination: No Hx Influenza Vaccination: Yes Hx Pneumococcal Vaccination: No Review Of Systems Constitutional: Negative for: Fever, Chills Eyes: Negative for: Vision Change ENT: Negative for: Ear Pain Gastrointestinal: Negative for: Nausea, Vomiting, Abdominal Pain Musculoskeletal: Positive for: Shoulder Pain (right), Arm Pain (left). Negative for: Neck Pain Neurological: Positive for: Dizziness. Negative for: Weakness, Numbness Physical Exam - Physical Exam Appears: Non-toxic, No Acute Distress Skin: Warm, Dry Head: Atraumatic, Normacephalic Eye(s): bilateral: Normal Inspection, PERRL, EOMI (no nystagmus) Ear(s): Bilateral: Normal (no hemotympanum) Neck: No Midline Cervical Tenderness, No Paracervical Tenderness, Supple Chest: No Tenderness Cardiovascular: Rhythm Regular, No Murmur Respiratory: No Decreased Breath Sounds, No Wheezing Gastrointestinal/Abdominal: Bowel Sounds, Soft, No Tenderness, Other (well healed vertical suprapubic scar) Extremity: No Normal ROM (dec rom to right shoulder due to pain;l no deformity noted, old surgical scar anterior right hsoulder anrea, tendern to palpation. from at right elbow, wrist and fingers. ), Other (mild tenderness distal left forearm, wrist and dorsum, and hand with no swelling. skin intact, from. ) Neurological/Psych: Oriented x3, Normal Speech, Normal Cognition, Normal Cranial Nerves, No Cerebellar Signs, Normal Motor, Normal Sensation Gait: Steady ED Course And Treatment O2 Sat by Pulse Oximetry: 99 Medical Decision Making Medical Decision Making: pt with intermittent dizziness s/p slip and fall, hit head, no loc; also right shoulder pain. head ct, xray shoulder 1502 no ich on head ct. likely concussion. xray neg for acute fx, f/u ortho Disposition - Disposition Referrals: Cuate Cali MD [Staff Provider] - [facility] at [facility] [Outside] Tracey Bernal MD [Staff Provider] - Disposition: HOME/ ROUTINE Disposition Time: 15:04 Condition: GOOD Additional Instructions: Please follow up with medical clinic, orthopedics (Dr Cali or your own orthopedist) and with Dr Bernal (neurology) for concussion. Take ibuprofen for pain. Try to move shoulder gently so it doesn't get frozen. Prescriptions: Ibuprofen [Motrin] 600 mg PO TID #30 tab Instructions: Concussion, Adult (DC), Closed Head Injury (DC), Shoulder Pain ( DC) Forms: [facility] (Spanish), General Discharge Instructions - Clinical Impression Clinical Impression: Head injury, closed, with concussion, Right shoulder injury, Fall from slipping on wet surface
--- NOTE | 2018-02-14 13:46 | RAD ---
PROCEDURE: Radiographs of the Right Shoulder HISTORY: dec rom s/p fall COMPARISON: No prior. FINDINGS: BONES: No acute fracture. Triangular corticated osseous density adjacent to the superior margin of the glenoid, uncertain significance. This could represent calcification from an old labral injury. JOINTS: Mild widening of acromioclavicular articulation common nonspecific. SOFT TISSUES: Normal. OTHER FINDINGS: None. IMPRESSION: No acute fracture. Nonspecific corticated ossific density as above. Nonspecific widening of acromioclavicular articulation. Rule out erosive change of distal clavicle.
--- NOTE | 2018-02-14 14:04 | CT ---
PROCEDURE: CT HEAD WITHOUT CONTRAST. HISTORY: Status post fall with head trauma and dizziness. No LOC. COMPARISON: None available. TECHNIQUE: Axial computed tomography images were obtained through the head/brain without intravenous contrast. Radiation dose: Total exam DLP = 1057.03 mGy-cm. This CT exam was performed using one or more of the following dose reduction techniques: Automated exposure control, adjustment of the mA and/or kV according to patient size, and/or use of iterative reconstruction technique. FINDINGS: HEMORRHAGE: No acute parenchymal, subarachnoid nor extra-axial hemorrhage. BRAIN: . No evidence of large acute infarct. No obvious parenchymal nor extra-axial mass or collection. The ventricular and sulcal size are within range of normal for this patient's stated age. Minor vascular calcifications both vertebral arteries and carotid siphons VENTRICLES: No obstructive hydrocephalus. CALVARIUM: There are no acute calvarial fractures. PARANASAL SINUSES: Subtotal opacification of the ethmoid air complex extending superiorly into a hypoplastic appearing frontal sinus. There is also minor mucosal thickening within the sphenoid sinus. MASTOID AIR CELLS: Unremarkable as visualized. No inflammatory changes. OTHER FINDINGS: None. IMPRESSION: No acute intracranial hemorrhage.
[2018-02-14 15:17] VITALS: BP 130/81; PULSE 75; RESP 18
[2018-02-14 22:36] VITALS: O2SAT 99
== END 2018-02-14 15:17 | disposition home or self-care (01) ==
LOC: C.ER 11:33
DX: S06.0X0A Concussion without loss of consciousness, initial encounter (principal); S49.91XA Unspecified injury of right shoulder and upper arm, initial encounter; W01.0XXA Fall on same level from slipping, tripping and stumbling without subsequent striking against object, initial encounter
CPT/HCPCS: 70450; 73030; 96372; 99284; J1885